=== PATIENT | female | born 1995 | race Hispanic/Latino ===

== ENCOUNTER 2018-05-13 12:31 | Inpatient (IN) | payer MEDICAID, OTHER ==
[2018-05-13] MEDS ORDERED: MEPERIDINE HCL 25 MG/0.5 ML IV PRN (14:27)
[2018-05-13] MEDS ORDERED: BUTORPHANOL 1 MG/ML INJ IV PRN (14:27)
[2018-05-13] MEDS ORDERED: METHYLERGONOVINE 0.2MG/ML AMP IM PRN (14:27)
[2018-05-13] MEDS ORDERED: PROMETHAZINE 25 MG/ML VIAL IM PRN (14:27)
[2018-05-13] MEDS ORDERED: MIDAZOLAM HCL 2 MG/2 ML INJ IV PRN (14:27)
[2018-05-13] MEDS ORDERED: Ringers Lactate 1,000 ML IV PRN (14:27)
[2018-05-13] MEDS ORDERED: CARBOPROST TROME 250 MCG/ML IM PRN (14:27)
[2018-05-13] MEDS ORDERED: CLINDAMYCIN IV SCH (15:00)
[2018-05-13] MEDS ORDERED: [UNRECOGNIZED DRUG - OTHER] IV SCH (15:00)
[2018-05-13] MEDS ORDERED: CLINDAMYCIN INJ 900 MG in NA CHLORIDE 0.9% 50 ML IV SCH (15:00)
[2018-05-13] MEDS ORDERED: Ringers Lactate 1,000 ML IV SCH (15:00)
[2018-05-13 15:23] LABS: RPR Titer ND
[2018-05-13] MEDS ORDERED: miSOPROStol 100 MCG TAB VAG SCH (15:25)
[2018-05-13 15:31] LABS: Urine Appearance TURBID; Urine Bilirubin NEGATIVE (NEG); Urine Blood 2+ (NEG); Urine Color YELLOW; Urine Glucose NEGATIVE (NEG); Urine Protein TRACE (NEG); Urine Urobilinogen 0.2 mg/dL (0.2-1.0)
[2018-05-13] MEDS ORDERED: miSOPROStol 100 MCG TAB ONE (15:31)
[2018-05-13 15:34] VITALS: BMI 31.1
[2018-05-13 15:36] LABS: Urine Microscopic Reflex ORDER UMIC
[2018-05-13 15:44] LABS: Urine Bacteria 20-50 /HPF (<20); Urine Culture Reflex Order NOT NEEDED
[2018-05-13 15:51] LABS: Absolute Lymphocytes (CBC) 1.6 K/uL (0.7-4.9); Absolute Monocytes 0.7 K/uL (0.1-1.3); Absolute Neutrophil 9.3 K/uL (1.8-8.0); Basophils % 0.4 % (0-1.3); Eosinophils % 0.3 % (0-4.4); Hematocrit 38.1 % (36.0-45.0); Lymphocytes % 13.3 % (15.3-44.8); MCH 30.3 pg (27.0-35.0); MCV 90.5 fL (80-100); MPV 13.1 fL (7.6-11.3); RBC Red Blood Cell Count 4.21 M/uL (3.86-4.86)
--- NOTE | 2018-05-13 20:06 | PREOPHP ---
Date of Admission: 05/13/2018 This is a 22-year-old primigravida, 39 weeks and 3-4 days, 1.5 cm vertex, -1 station, 50% effaced. F HTs normal, reactive. Rh positive, immune to Rubella. Negative beta strep screen. Full Cytotec doug k has been given and the patient is requesting Cytotec 50 mcg inserted intravaginally. The patient i s strep positive; therefore, we will begin penicillin prophylaxis either when rupture of membranes oc curs or the patient starts having regular firm contractions. Full labor talk today. GILDA/KAMLA Voice ID: [id number]
[2018-05-13] MEDS ORDERED: ZOLPIDEM TARTRATE 10 MG TABLET PO ONE (20:36)
[2018-05-13 22:43] LABS: RPR (Rapid Plasma Reagin) NON-REACT (NON-REACT)
[2018-05-14] MEDS ORDERED: OXYTOCIN/LR 20 UNIT/1,000 ML BAG IV SCH ×2 (04:00→12:00)
[2018-05-14] MEDS ORDERED: ROPIVACAINE HCL 100 ML IV PRN (05:49)
[2018-05-14] MEDS ORDERED: FENTANYL CITR 100 MCG/2 ML IV ONE (05:51)
[2018-05-14] MEDS ORDERED: ROPIVACAINE HCL 0.2% 20ML AMP IV SCH (06:00)
[2018-05-14] MEDS ORDERED: CARBOPROST TROME 250 MCG/ML IM PRN (06:59)
[2018-05-14] MEDS ORDERED: METHYLERGONOVINE 0.2MG/ML AMP IM PRN (06:59)
[2018-05-14] MEDS ORDERED: MEPERIDINE HCL 25 MG/0.5 ML IV PRN (06:59)
[2018-05-14] MEDS ORDERED: LIDOCAINE 2% 20 ML MDV IV ONE (07:02)
[2018-05-14] MEDS ORDERED: DOCUSATE NA/SENNA CONC 1 TAB PO PRN (11:02)
[2018-05-14] MEDS ORDERED: BISACODYL 10 MG RECTAL SUPP RECT PRN (11:02)
[2018-05-14] MEDS ORDERED: ACETAMINOPHEN 500 MG TAB PO PRN (11:02)
[2018-05-14] MEDS ORDERED: DIPHENHYDRAMINE 25 MG TAB/CAP PO PRN (11:02)
[2018-05-14] MEDS ORDERED: Oxycodone HCl/Acetaminophen 1 TAB TAB PO PRN ×2 (11:02)
--- NOTE | 2018-05-14 11:25 | PN ---
The patient is now 39 weeks 5 days. Cytotec last night. After second dose, patient ruptured membran es spontaneously, clear fluid. She has had 1 dose of Stadol. She is not on any Pitocin at this poin t. She has had 2 doses of Cleocin for beta strep prophylaxis. She is now 7 cm slightly and edematou s anterior lip, I think she is occiput posterior. She will do pelvic rocks. Scalp electrode applied . If no progress in the next hour or so, we will start light Pitocin. Full labor talk with the maren ent. GILDA/KAMLA Voice ID: [id number] Report ID: [id number]
--- NOTE | 2018-05-14 11:31 | PN ---
Patient has an epidural now, is much more comfortable. FHTs normal and reactive. She is now 8 cm. The edema noted on the anterior cervical lip is still there but less. I think the baby is still occi put posterior. We will start pelvic rocks here soon, and if no progress in the next 20 to 30 minutes , start light Pitocin. GILDA/KAMLA Voice ID: [id number] Report ID: [id number]
--- NOTE | 2018-05-14 11:40 | OP ---
Surgeon: Derrick Zarco MD A 22-year-old primigravida at 39 weeks 4 days, had Cytotec 50 mcg placed and then 6 hours later secon d one. Spontaneous rupture of membranes around midnight last night. Clear fluid. The patient went to a very active labor pattern. Received 1 mg of Stadol. When examined this morning was 7.5 to 8 cm , but edematous anterior cervical lip and straight occiput posterior. Epidural anesthesia was establ ished. The patient did pelvic rocks. Baby rotated into an anterior position. Second stage of 30-45 minutes. Spontaneous vaginal delivery of an estimated 7-pound plus female Apgars 9 and 9. Small fi rst-degree laceration on the right, labia minora and down to the introitus, all sutured with 2-0 fingerprinter shameka running locked stitch. A smaller first-degree laceration just inside the introitus on patient's left, 2-0 chromic at that point. Schultze delivery of placenta, which was inspected and noted to be intact and normal. A 350 cc estimated blood loss. The patient is Rh positive, immune to Rubella. P ositive beta strep screen. Received 2 doses of Cleocin during her labor. Final Diagnoses: Intrauterine gestation, 39 weeks 4 days, Cytotec for cervical ripening, labor induc tion, vaginal delivery at 39 weeks 5 days. Epidural anesthesia. Beta strep prophylaxis with Cleocin . GILDA/KAMLA Voice ID: [id number] Report ID: [id number]
--- NOTE | 2018-05-14 11:40 | PN ---
The patient is still 8 cm, occiput posterior. She is on 4 milliunits of Pitocin. We will continue t o stimulate contractions. She has absolutely no sensation, so we will cut the epidural from 12 to 10 , maintenance dose. Full discussion with the patient and family, encouraged once again to do pelvic rocks, which she has not been doing, full discussion. GILDA/KAMLA Voice ID: [id number] Report ID: [id number]
[2018-05-14] MEDS ORDERED: CARBOPROST TROME 250 MCG/ML IM ONE (12:44)
[2018-05-14] MEDS ORDERED: METHYLERGONOVINE 0.2 MG TAB PO PRN (12:58)
[2018-05-14] MEDS: METHYLERGONOVINE 0.2 MG TAB PO SCH ×2 (17:00→21:00)
[2018-05-14] MEDS ORDERED: METHYLERGONOVINE 0.2 MG TAB PO SCH (18:00)
[2018-05-14] MEDS: IBUPROFEN 200 MG TAB PO PRN (21:00)
[2018-05-15] MEDS: IBUPROFEN 200 MG TAB PO PRN (04:15)
[2018-05-15] MEDS: METHYLERGONOVINE 0.2 MG TAB PO SCH (04:15)
[2018-05-15] MEDS ORDERED: METHYLERGONOVINE 0.2 MG TAB PO ONE (04:21)
[2018-05-15 04:25] LABS: HBsAG Nonreactive (Nonreactive)
[2018-05-15 04:36] VITALS: BP 125/66; TEMP 97.6
--- NOTE | 2018-05-16 05:08 | DS ---
Date of Discharge: 05/15/2018 A 22-year-old, primigravida, 39 weeks 4 days, Cytotec for cervical ripening. After the second Cytote c, patient experienced spontaneous rupture of membranes, clear fluid. Went to an active labor patter n. Later in the labor, had light Pitocin augmentation. She subsequently delivered of an estimated 7 -pound plus female, Apgars 9 and 9 after second stage of approximately 30-45 minutes. Spontaneous Sc hultze delivery of the placenta, which was inspected and noted to be intact and normal. At that time , 350 cc blood loss. Epidural anesthesia was started at 8 cm. Gave good effect the remainder of lab or and delivery. The patient sustained two first-degree lacerations, one on the right side labia min ora, 2-0 chromic running interlocked stitches, approximately six, one on the left side at the introit us at the lower portion, four stitches of 2-0 chromic running locked. Cleocin prophylaxis as patien t was beta strep positive, two doses given. , patient experienced mild hypotonous, was giv en Methergine IM and then subsequently p.o. Methergine, lochia is now normal. She also could not voi d, has Meyer catheter inserted. 650 cc was obtained at that point. We will discontinue the Meyer th is morning. The patient has already been ambulating. She will be dismissed later on this afternoon. To report to my office in 6 weeks for followup, to report any temperature elevation of 100 degrees or greater, severe pain, heavy bleeding, or any other type of abnormalities. Dismissed with Tramadol for analgesia, although she knows this goes to the breast milk and may elect to take Motrin instead. She has already had her Tdap and flu shots. She has no post epidural problems. Final Diagnoses: Intrauterine gestation, 39 weeks 4 days, Cytotec for cervical ripening. Labor kenneth ction. Vaginal delivery. Epidural anesthesia. Penicillin prophylaxis. Mild uterine hypotonus. Urinary retention. NBC/MODL Voice ID: [id number] Report ID: [id number]
== END 2018-05-15 13:15 | disposition home or self-care (01) | DRG 807 ==
LOC: 2ND-WC 14:09
PROVIDERS: ADMIT Specialist; ATTEND Specialist
PROC: 10E0XZZ Delivery of Products of Conception, External Approach (ICD-10-PCS; principal; 2018-05-14)
PROC: 3E0P7VZ Introduction of Hormone into Female Reproductive, Via Natural or Artificial Opening (ICD-10-PCS; 2018-05-14)
PROC: 0HQ9XZZ Repair Perineum Skin, External Approach (ICD-10-PCS; 2018-05-14)
PROC: 0UQGXZZ Repair Vagina, External Approach (ICD-10-PCS; 2018-05-14)
DX: O70.0 First degree perineal laceration during delivery (principal); Z37.0 Single live birth; O99.824 Streptococcus B carrier state complicating childbirth; Z3A.39 39 weeks gestation of pregnancy; O62.1 Secondary uterine inertia; O99.89 Other specified diseases and conditions complicating pregnancy, childbirth and the puerperium; R33.9 Retention of urine, unspecified
CPT/HCPCS: 36415; 81003; 81015; 85025; 86592; 86901; 87340; J0595; J2210; J2550; J2590; J2795; J3010

== ENCOUNTER 2020-06-02 15:51 | Emergency (ER) | payer OTHER ==
--- OUTSIDE RECORDS SUMMARY | 2020-06-02 15:53 | XMS REPORT | Continuity of Care Document ---
:1995 Author Organization [facility] t Address [address] [place] [address] Care Team Providers Name Role Phone Tristin SUTHERLAND Attending Clinician 2, Lab Attending Clinician Unavailable Obed Acevedo MD Attending Clinician Doctor Unassigned, Name Attending Clinician Unavailable Jigar RAMOS Attending Clinician Eduar CRAWFORD Attending Clinician Problems This patient has no known problems. Allergies, Adverse Reactions, Alerts This patient has no known allergies or adverse reactions. Medications This patient has no known medications. Procedures This patient has no known procedures. Encounters Start End Encounter Admission Attending Care Care Encounter Source Date/Time Date/Time Type Type Clinicians Facility Department ID 2020-06-02 2020-06-02 [facility] [id number] 00:00:00 00:00:00 Joan Iniguez 350.1.13.10 [place] 4.2.7.2.686 Professfredi [phone] [address] 2020-06-02 2020-06-02 [place] [id number] 00:00:00 00:00:00 Joan Iniguez 350.1.13.10 [place] 4.2.7.2.686 Professio [phone] [address] 2020-06-01 2020-06-01 Case [id number] 00:00:00 00:00:00 Management Joan Iniguez 350.1.13.10 [place] 4.2.7.2.686 Professio [phone] [facility] [address] [facility] 2020-06-01 2020-06-01 Telephone Tristin, [facility] [id number] 00:00:00 00:00:00 Joandno Delgadoton 350.1.13.10 [place] 4.2.7.2.686 Professio [id number] [address] 2020-05-24 2020-05-24 Coal Weigher 2, Adc Lab [facility] [id number] 08:18:11 08:33:11 Visit Geetha 350.1.13.10 [place] 4.2.7.2.686 Professio [phone] [address] 2020-05-24 2020-05-24 Telephone Curtis Annetta [facility] [id number] 00:00:00 00:00:00 [place] 350.1.13.10 [place] 4.2.7.2.686 Professio [phone] [address] 2020-05-19 2020-05-19 Telephone Annetta Acevedo [facility] [id number] 00:00:00 00:00:00 Cam [place] 350.1.13.10 [place] 4.2.7.2.686 Professio [phone] [address] 2020-05-18 2020-05-18 Routine Tristin [facility] [id number] 08:51:53 09:34:45 Joan Iniguez 350.1.13.10 Visit [place] 4.2.7.2.686 Professio [id number] [address] 2020-05-18 2020-05-18 Letter Tristin [facility] [id number] 00:00:00 00:00:00 (Out) Joan Iniguez 350.1.13.10 [place] 4.2.7.2.686 Professio [id number] [address] 2020-05-17 2020-05-17 Telephone Tristin [facility] 1.2.840.114 [id number] 00:00:00 00:00:00 Joan Iniguez 350.1.13.10 [place] 4.2.7.2.686 Professio [phone] [address] 2020-05-10 2020-05-10 Coal Weigher 2, Adc Lab [facility] [id number] 09:18:13 09:33:13 Visit Geetha 350.1.13.10 [place] 4.2.7.2.686 Professio [phone] [address] 2020-05-10 2020-05-10 Routine Curtis Annetta [facility] [id number] 08:32:45 09:11:33 Obed Iniguez 350.1.13.10 Visit [place] 4.2.7.2.686 Professio [phone] [address] 2020-05-10 2020-05-10 Case Washingtonbarbi [facility] [id number] 00:00:00 00:00:00 Management Joan Iniguez 350.1.13.10 [place] 4.2.7.2.686 Professio [phone] [address] 2020-05-10 2020-05-10 Orders Doctor CELY 1.2.840.114 [id number] 00:00:00 00:00:00 Only Unassigned, [place] 350.1.13.10 [place] [facility] 4.2.7.2.686 [id number] 009 2020-05-07 2020-05-07 Emergency [facility] [id number] 16:31:00 18:34:00 Digna Iniguez 350.1.13.10 [place] 4.2.7.2.686 [place] [id number] [id number] 2020-05-07 2020-05-07 Telephone Annetta Acevedo [facility] 1.2.840.114 [id number] 00:00:00 00:00:00 Obed Iniguez 350.1.13.10 [place] 4.2.7.2.686 Professio [phone] [address] 2020-05-07 2020-05-07 Orders Doctor CELY 1.2.840.114 [id number] 00:00:00 00:00:00 Only Unassigned, [place] 350.1.13.10 [place] [facility] 4.2.7.2.686 [id number] [id number] 2020-05-05 2020-05-05 Telephone Annetta Acevedo [facility] 1.2.840.114 [id number] 00:00:00 00:00:00 [place] 350.1.13.10 [place] 4.2.7.2.686 Professio [id number] [address] 2020-05-03 2020-05-03 Case Vaibhavrajinder [facility] [id number] 00:00:00 00:00:00 Management Joan Geetha 350.1.13.10 [place] 4.2.7.2.686 Professio [phone] [address] 2020-04-27 2020-04-27 Routine Annetta Acevedo [facility] [id number] 10:19:04 11:00:59 Obed Iniguez 350.1.13.10 Visit [place] 4.2.7.2.686 Professio [phone] [address] 2020-04-13 2020-04-13 Telephone Annetta Acevedo [facility] 1.2.840.114 [id number] 00:00:00 00:00:00 [place] 350.1.13.10 [place] 4.2.7.2.686 Professio [id number] [address] 2020-04-05 2020-04-05 Routine Annetta Acevedo [facility] [id number] 13:01:59 14:19:54 [place] 350.1.13.10 Visit [place] 4.2.7.2.686 Professio [phone] [address] 2020-04-05 2020-04-05 Emergency [facility] [id number] 09:26:00 12:14:00 Giorgio Iniguez 350.1.13.10 [place] 4.2.7.2.686 [place] [id number] 084 2020-04-05 2020-04-05 Orders Doctor CELY 1.2.840.114 [id number] 00:00:00 00:00:00 Only Unassigned, [place] 350.1.13.10 [place] [facility] 4.2.7.2.686 [id number] 009 2020-03-31 2020-03-31 Telephone Annetta Acevedo 1.2.840.114 [id number] 00:00:00 00:00:00 [place] 350.1.13.10 [place] 4.2.7.2.686 Professio [id number] [address] 2020-03-31 2020-03-31 Orders Doctor CELY 1.2.840.114 [id number] 00:00:00 00:00:00 Only Unassigned, [place] 350.1.13.10 [place] [facility] 4.2.7.2.686 [id number] [id number] 2020-03-26 2020-03-26 Telephone Annteta Acevedo 1.2.840.114 [id number] 00:00:00 00:00:00 [place] 350.1.13.10 [place] 4.2.7.2.686 Professio [phone] [address] 2020-03-23 2020-03-23 Initial Annetta Acevedo [facility] [id number] 07:59:09 08:51:52 [place] 350.1.13.10 Visit [place] 4.2.7.2.686 Professio [phone] [address] 2020-03-23 2020-03-23 Orders Doctor CELY [id number] [id number] 00:00:00 00:00:00 Only Unassigned, [place] 350.1.13.10 [place] [facility] 4.2.7.2.686 [id number] [id number] Results This patient has no known results.
--- OUTSIDE RECORDS SUMMARY | 2020-06-02 15:54 | XMS REPORT | Summary of Care ---
:1995 Author Organization [facility] Address [address] [place] [address] Care Team Providers Name Role Phone MD Bello Primary Care Provider Reason for Visit Reason Comments Rx Concern/Question Encounter Details Date Type Department Care Team Description 03/31/[address] [facility] Women's AcevedoAnnetta MD Rx Concern/Question Healthcare- [address] Mcconnell [facility] [address] [place] [address] [place] [address] [phone] Allergies Active Allergy Reactions Severity Noted Date Comments Penicillins Rash 05/07/2015 documented as of this encounter (statuses as of 04/02/2020) Medications Medication Sig Dispensed Refills Start Date End Date Status proMETHazine 25 mg Take 1 tablet by 12 tablet 0 03/16/2018 Active tablet mouth every 6 (six) hours as needed for Nausea and Vomiting (N/V). azithromycin (ZITHROMAX Take 1 tablet by 1 tablet 0 9 Active Z-RUT) 250 mg mouth tabletIndications: SEE-INSTRUCTIONS Streptococcal sore . Take 500 mg throat day 1, then 250 mg days 2 to 5. cetirizine (ZYRTEC) 10 Take 1 tablet by 10 tablet 0 05/26/2019 Active mg tabletIndications: mouth daily. Allergic rhinitis, unspecified seasonality, unspecified trigger fluticasone propionate Use 1 [place] in 16 g 0 05/26/2019 Active (FLONASE ALLERGY each nostril RELIEF) 50 daily. mcg/actuation nasal sprayIndications: Allergic rhinitis, unspecified seasonality, unspecified trigger 25/iron Take by mouth. 0 Active fum/folic/dha (-1 ORAL) doxylamine-pyridoxine, Take 1 tablet by 120 tablet 3 0 Active vit B6, (DICLEGIS) mouth 10-10 mg per SEE-INSTRUCTIONS tabletIndications: . Positive test, Vomiting or nausea of ketoconazole 2 % Apply to 15 g 1 03/23/2020 Ac tive creamIndications: area(s) daily. Candidiasis of skin and nails triamcinolone acetonide Apply to 15 g 1 03/23/2020 Active 0.1 % creamIndications: area(s) 2 (two) Candidiasis of skin and times daily. nails metoclopramide HCl 10 Take 1 tablet by 30 tablet 1 04/02/2020 Active mg tablet mouth every 6 (six) hours as needed for Nausea and Vomiting (N/V) (alternate with unisom/vitamin B6). documented as of this encounter (statuses as of 04/02/2020) Active Problems Problem Noted Date Obesity (BMI 30-39.9) 03/23/2020 Allergic rhinitis, unspecified seasonality, unspecifie d trigger 05/26/2019 Need for influenza vaccination 05/26/2019 Estimated Date of Delivery Comments Yes 11/19/2020 documented as of this encounter (statuses as of 04/02/2020) Resolved Problems Problem Noted Date Resolved Date Visit for annual health examination 05/26/201903/09 Diarrhea, unspecified type 05/26/2019 03/23/2020 Non-recurrent acute suppurative otitis media of right ear 03/23/2020 without spontaneous rupture of tympanic membrane Acute otitis externa of right ear, unspecified type 05/08/20 19 03/23/2020 Right ear pain 05/08/2019 03/23/2020 Left knee pain 05/07/2015 02/15/2016 documented as of this encounter (statuses as of 04/02/2020) Immunizations Name Administration Dates Next Due DTAP 10/07/2001, 09/20/1998, 03/24/1998, 01/21/1998, 1995 H1n1 Vaccine 06/22/2009 HEPATITIS A 02/07/2008, 05/25/2006, 02/06/2005 HIB 4 Dose Schedule 09/20/1998, 03/24/1998, 01/21/1998, 1997 HPV 02/15/2016 HPV9 02/15/2016 (Deferred: Vaccine Unavailable) Hep B, Adol or Pedi Dosage 06/22/1998, 1997, 8 Influenza Virus Vaccine 10/07/2001 Influenza Virus Vaccine Quad .5 mL IM 05/26/2019 6+ MO MMR 10/07/2001, 09/20/1998 Meningococcal B, OMV 11/30/2015 Meningococcal Vaccine 11/30/2015, 12/01/2008 TDAP (ADACEL) VACCINE 02/22/2011 Varicella (varivax)(chicken pox) 02/22/2011, 09/20/1998 documented as of this encounter Social History Tobacco Use Types Packs/Day Years Used Date Never Smoker Smokeless Tobacco: Never Used Alcohol Use Drinks/Week oz/Week Comments No Estimated Date of Delivery Comments Yes 11/19/2020 Sex Assigned at Date Recorded Not on file COVID-19 Exposure Response Date Recorded In the last month, have you been in contact with No / Unsure 03/23/2020 7:54 AM CDT someone who was confirmed or suspected to have Coronavirus / COVID-19? documented as of this encounter Last Filed Vital Signs Not on filedocumented in this encounter Miscellaneous Notes Telephone Encounter - Ce Soto RN - 04/02/2020 1:42 PM CDTRN called patient, name and verified. RN notified patient of new medication for nausea and that it needs to be alternated with vitamin B6 and unisom. RN advised. patient to call back with any questions or concerns. Patient verbalized understanding and agrees to plan of care. Ce Soto RN 04/02/2020 1:44 PM Telephone Encounter - Ce Soto RN - 04/02/2020 8:[address] Acevedo, order entered for Reglan 10mg, 1 tablet by mouth [id number] PRN Nausea, q30, refills1. This is to be alternated with unisom/vitamin B6. RN called patient to notify of medication change and instructions, no answer, left message for patient to return call so that rx can be processed. Ce Soto RN 04/02/2020 8:06 AM Telephone Encounter - Gisele Casiano - 03/31/2020 1:30 PM CDTReceived fax, Clinical Services Team denied medication Doxylamine, given to nurse. documented in this encounter Plan of Treatment Date Type Specialty Care Team Description 04/06/2020 Routine Obstetrics & Acevedo, Annetta Clay MD Visit Gynecology [address] [place] [address] DR. Mejia [place], [place] [address] [phone] Health Maintenance Due Date Last Done Comments MENINGOCOCCAL B VACCINES (2 12/28/2015 11/30/2015 of 2 - Risk Bexsero 2-dose series) HPV VACCINES (2 - 3-dose 03/14/2016 02/15/2016 series) INFLUENZA VACCINE (#1) 2020 05/26/2019, 10/07/2001 Depression Screening 05/26/2020 05/26/2019 DTaP,Tdap,and Td Vaccines (7 02/22/2021 02/22/2011, 002, - Td) 09/20/1998, Additional history exists CHLAMYDIA SCREENING 03/23/2021 03/23/2020, 06/07/2018 PAP SMEAR 03/23/2023 03/23/2020 VARICELLA VACCINES Completed 02/22/2011, 09/20/1998 MENINGOCOCCAL VACCINE Aged Out 11/30/2015, 12/01/2008 No longer eligible based on patient 's age to complete this topic PNEUMOCOCCAL 0-64 YEARS Aged Out No longe r eligible COMBINED SERIES based on patient 's age to complete this topic documented as of this encounter Results Not on filedocumented in this encounter Insurance Payer Benefit Plan Subscriber ID Effective Dates Phone Address Type / Group [employer] [facility] [id number] 2019-Chiqui [phone] [address] PPO/POS [place] - OUT OF t [id number] [place] [address] documented as of this encounter
--- OUTSIDE RECORDS SUMMARY | 2020-06-02 15:54 | XMS REPORT | Summary of Care ---
:1995 Author Organization [facility] Address [address] [place] [id number] Care Team Providers Name Role Phone MD Bello Primary Care Provider Reason for Visit Reason Comments New OB Visit Encounter Details Date Type Department Care Team Description 03/23/2020 Initial [facility] AcevedoAnnetta am, MD Candidiasis of skin and nails (Primary D x); Visit Healthcare- [address] [place] [address] men ses; [place] Positive test; [address] [place] [address] [address], [address] [place] [id number] [phone] Allergies Active Allergy Reactions Severity Noted Date Comments Penicillins Rash 05/07/2015 documented as of this encounter (statuses as of 03/23/2020) Medications Medication Sig Dispensed Refills Start Date End Date Status proMETHazine 25 mg Take 1 tablet by 12 tablet 0 03/16/2018 Active tablet mouth every 6 (six) hours as needed for Nausea and Vomiting (N/V). azithromycin Take 1 tablet by 1 tablet 0 10/18/2018 Active (ZITHROMAX Z-RUT) 250 mouth mg tabletIndications: SEE-INSTRUCTIONS. Streptococcal sore Take 500 mg day throat 1, then 250 mg days 2 to 5. cetirizine (ZYRTEC) 10 Take 1 tablet by 10 tablet 0 05/26/2019 Active mg tabletIndications: mouth daily. Allergic rhinitis, unspecified seasonality, unspecified trigger fluticasone propionate Use 1 Hamer in 16 g 0 05/26/2019 Active (FLONASE ALLERGY each nostril RELIEF) 50 daily. mcg/actuation nasal sprayIndications: Allergic rhinitis, unspecified seasonality, unspecified trigger 25/iron Take by mouth. 0 Active fum/folic/dha (-1 ORAL) doxylamine-pyridoxine, Take 1 tablet by 120 tablet 3 0 Active vit B6, (DICLEGIS) mouth 10-10 mg per SEE-INSTRUCTIONS. tabletIndications: Positive test, Vomiting or nausea of ketoconazole 2 % Apply to area(s) 15 g 1 03/23/2020 Active creamIndications: daily. Candidiasis of skin and nails triamcinolone Apply to area(s) 15 g 1 03/23/2020 Active acetonide 0.1 % 2 (two) times creamIndications: daily. Candidiasis of skin and nails documented as of this encounter (statuses as of 03/23/2020) Active Problems Problem Noted Date Obesity (BMI 30-39.9) 03/23/2020 Allergic rhinitis, unspecified seasonality, unspecifie d trigger 05/26/2019 Need for influenza vaccination 05/26/2019 Estimated Date of Delivery Comments Yes 11/19/2020 documented as of this encounter (statuses as of 03/23/2020) Resolved Problems Problem Noted Date Resolved Date Visit for annual health examination 05/26/201903/09 Diarrhea, unspecified type 05/26/2019 03/23/2020 Non-recurrent acute suppurative otitis media of right ear 03/23/2020 without spontaneous rupture of tympanic membrane Acute otitis externa of right ear, unspecified type 05/08/20 19 03/23/2020 Right ear pain 05/08/2019 03/23/2020 Left knee pain 05/07/2015 02/15/2016 documented as of this encounter (statuses as of 03/23/2020) Immunizations Name Administration Dates Next Due DTAP [...] of this encounter Last Filed Vital Signs Vital Sign Reading Time Taken Comments Blood Pressure 126/87 03/23/2020 8:27 AM CDT Pulse 94 03/23/2020 8:27 AM CDT Temperature 37.1 C (98.7 F) 03/23/2020 8:27 AM CDT Respiratory Rate 18 03/23/2020 8:27 AM CDT Oxygen Saturation - - Inhaled Oxygen Concentration - - Weight 92.4 kg (203 lb 12.8 oz) 03/23/2020 8:27 AM CDT Height 165.1 cm (5' 5") 03/23/2020 8:27 AM CDT Body Mass Index 33.91 03/23/2020 8:27 AM CDT documented in this encounter Patient Instructions Patient InstructionsCherelle Rutherford MA - 03/23/2020 8:00 AM CDT Patient Education What Is Care? Before becoming , you may have adopted good health habits to prepare for your baby. But if you didnt, start today. One of the first steps is learning how to take care of yourself. See your healthcare provider as soon as you think you may be . Then, continue care throughout your . care helps you have a healthy baby During care: Your healthcare provider evaluates the health of your . Your healthcare provider will calculate a due date that gives an estimate of the delivery of your baby. Many women give between 38 and 41 weeks of . Your due date is determined by counting 40 weeks from the first day of your last menstrual period. The progress of your is checked. This includes your babys growth, heart rate, changes in your weight and blood pressure,and your overall health and comfort. Your healthcare provider may find new concerns and manage existing ones before problems happen. Your healthcare provider will check lab work through blood and urine. Your healthcare provider will discuss normal changes that happen during , changes that may not be normal, and appropriate lifestyle changes. Your healthcare provider will answer your questions and help you prepare for labor and delivery of your baby. You are part of a team When youre , youre part of a team that includes you, your baby, and your healthcare provider. Your team also may include a partner or a main support person. He or she could be a loved one, like a spouse, a family member, or a friend. As you work toward giving your baby a healthy start, rely on your team members for support. Its not too late to start good habits What matters most is protecting your baby from this moment on. If you smoke, drink alcohol, or use drugs, now is the time to stop. If you need help, talk with your healthcare provider: Smoking increases the risk of losing your baby or having a vkd-ktkoa-dlkukw baby. If you smoke, quit now. Alcohol and drugs have been linked with miscarriage, defects, intellectual disability, and low weight. Avoid alcohol and drugs. Eat a healthy diet. This helps keep you and your baby strong and healthy. Follow your healthcare provider's instructions for nutrition. Also stay within the guidelines you are given for healthy weight gain. Take 400microgramsto 800 micrograms (400 mcg to 800 mcg or 0.4 mg to 0.8 mg) of folic acid every day for at least 3 months before getting to lower your risk of some defects of thebrain and spine. You can get folic acid from some foods. It is hard to get all of the folic acid youwill need from foods alone. Talk with your healthcare provider about taking a folic acid supplement. Regular exercise will help you stay fit and feel good during . It can also help preventor minimize back pain. Be sure to talk with your healthcare provider about how to exercise safely during . If you have a medical condition, be sure it is under control. Some conditions include asthma, diabetes, depression, high blood pressure, obesity, thyroid disease, or epilepsy. Be sure your vaccines are up to date. [employer] last reviewed this educational content on 04/08/2017 The [employer]. [address] [place] [address]. All rights reserved. This information is not intended as a substitute for professional medical care. Always follow your healthcare professional's instructions. Patient Education : Your First Trimester Changes The first trimester is a time of rapid development for your baby. Because your baby is growing so quickly, it is important that you start a healthy lifestyle right away. By the end of the first trimester, your baby has formed all of its major body organs and weighs just over an ounce. Actual size of baby is 1/4" Month 1 (weeks 1 to 4) The placenta (the organ that nourishes your baby) begins to form. Thebrain, spinal cord,heart,gastrointestinal tract,and lungs begin to develop. Your baby is about 1/4-inch long by the end of the first month. Actual size of baby is 1" Month 2 (weeks 5 to 8) All of your babys major body organs form. The face, fingers, toes, ears, and eyes appear. By the end of the month, your baby is about 1-inch long. Actual size of baby is 3" Month 3 (weeks 9 to 12) Your baby can open and close its fists and mouth. The sexual organs begin to form. As the first trimester ends, your baby is about 3-inches long. Postling last reviewed this educational content on 04/08/2017 The [employer] [address] [place] [address]. All rights reserved. This information is not intended as a substitute for professional medical care. Always follow your healthcare professional's instructions. Patient Education Adapting to : First Trimester As your body adjusts, you may have to change or limit your daily activities. Youll need more rest. You may also need to use the energy you have more wisely. Your changing body Almost every part of your body is affected as you adapt to . The uterus and cervix will begin to soften right away. You may not look very during the first 3 months. But you are likelyto have some common signs of early : Nausea Fatigue Frequent urination Mood swings Bloating of the belly Constipation Heartburn Missed or light periods (first trimester bleeding) Nipple or breast tenderness and breast swelling Its not too late to start good habits What matters most is protecting your baby from this moment on. If you smoke, drink alcohol, or use drugs, now is the time to stop. If you need help, talk with your healthcare provider: Smoking increases the risk of stillbirthor having a dro-qbylj-exypbg baby. If you smoke, quit now. Alcohol and drugs have been linked with miscarriage, defects, intellectual disability, and low weight. Do not drink alcohol or take drugs. Tips to relieve nausea Although nausea can happen at any time of the day, it may be worse in the morning. To help prevent nausea: Eat small, light meals at frequent intervals. Drink fluids often. Get up slowly. Eat a few unsalted crackers before you get out of bed. Avoid smells that bother you. Avoid spicy and fatty foods. Eat an ice popin your favorite flavor. Get plenty of rest. Ask your healthcare provider about taking ira or vitamin B6 for nausea and vomiting. Talk with your healthcare provider if you take vitamins that upset your stomach. Work concerns The end of the first trimester is a good time to discuss working during with your employer. Follow your healthcare providers advice if your job needs you to stand for a long time, work with hazardous tools, or even sit at a desk all day. Your workspace, workload, or scheduled hours may need to be adjusted. Perhaps you can change body postures more often or take an extra break. Advice for travel Talk to your healthcare provider first, but the second trimester may be the best time for any travel. You may be advised to avoid certain trips while youre . Food and water can be concerns in developing countries. Travel by car is a good choice, as you can stop, get out, and stretch. Bring snacks and water along. Fasten the lap belt below your belly, low over your hips. Also be sure to wear the shoulder harness. Intimacy Unless your healthcare provider tells you to, there is no reason to stop having sex while youre . You or your partner may notice changes in desire. Desire may be less in the first trimester,due to nausea and fatigue. In the second trimester, sex may be very enjoyable. The third trimester can be a challenge comfort-vallejo. Try different positions and see whats best for you both. Postling last reviewed this educational content on 04/08/201719992379-7750 The [employer]. [address] [place] [address]. All rights reserved. This information is not intended as a substitute for professional medical care. Always follow your healthcare professional's instructions. documented in this encounter Progress Notes Annetta Acevedo MD - 03/23/2020 8:00 AM CDT Chief complaint: Chief Complaint Patient presents with New OB Visit HPI Fernanda Davis is a 24 year old, , /White female @5w4d by Patient's last menstrual period was 02/13/2020 (exact date). Denies cramping or vaginal bleeding. + nausea. Histories OB History Para Term AB Living 2 1 1 1 SAB TAB Ectopic Multiple Live Births 1 # Outcome Date GA Lbr [place]/2nd Weight Sex Delivery Anes PTL Lv 2 Current 1 Term 05/14/18 39w4d 7 lb 4 oz (3.289 kg) F NORMAL SPONT N SYDNI Past Medical History: Diagnosis Date Seasonal allergies Family History Problem Relation Age of Onset Stroke Paternal Grandfather 42 No Significant Medical Problems Mother Diabetes Father High cholesterol Father Hypertension Father No Significant Medical Problems Maternal Grandmother No Significant Medical Problems Maternal Grandfather Diabetes Paternal Grandmother Allergies NoFHx Asthma NoFHx Heart NoFHx Family Status Relation Name Status PGFa Mo Alive Fa Alive MGMo (Not Specified) MGFa (Not Specified) PGMo (Not Specified) NoFHx (Not Specified) Past Surgical History: Procedure Laterality Date JOINT SURGERY Lt ACL & Menis. repair. 08/2014 TOOTH EXTRACTION Social History Socioeconomic History Marital status: Single Spouse name: Not on file Number of children: Not on file Years of education: Not on file Highest education level: Not on file Occupational History Not on file Social Needs Financial resource strain: Not on file Food insecurity Worry: Not on file Inability: Not on file Transportation needs Medical: Not on file Non-medical: Not on file Tobacco Use Smoking status: Never Smoker Smokeless tobacco: Never Used Substance and Sexual Activity Alcohol use: No Drug use: No Sexual activity: Yes Partners: Male control/protection: None Lifestyle Physical activity Days per week: Not on file Minutes per session: Not on file Stress: Not on file Relationships Social connections Talks on phone: Not on file Gets together: Not on file Attends gnosticist service: Not on file Active member of club or organization: Not on file Attends meetings of clubs or organizations: Not on file Relationship status: Not on file Intimate partner violence Fear of current or ex partner: Not on file Emotionally abused: Not on file Physically abused: Not on file Forced sexual activity: Not on file Other Topics Concern Not on file Social History Narrative Lives with and daughter Denies any physical or sexual abuse Feels safe at home No pets No smoke exposure Social History Substance and Sexual Activity Sexual Activity Yes Partners: Male control/protection: None Genetic Screen Autism / Mental Retardation: No Jovany Disease: No Congenital Heart Defect: No Cystic Fibrosis: No Down Syndrome: No Familial Dysautonomia: No Hemophilia or other Blood Disorders: No Providence Chorea: No Maternal Metabolic Disorder--specify (eg. Type 1 Diabetes, PKU): No Muscular Dystrophy: No Neural Tube Defect: No Recurrent Loss or a Stillbirth: No Sickle Cell Disease or Trait: No Smith Sachs: No Teratological Substances (specify type & strength/dose) since LMP: No Thalassemia: No Other Inherited Genetic or Chromosomal Disorder (specify): No Labs I have reviewed the patient's labs. Radiology Reviewed Allergies Fernanda is allergic to pcn [penicillins]. Medications Fernanda has a current medication list which includes the following prescription(s): 25/iron fum/folic/dha, cetirizine, fluticasone propionate, azithromycin, and promethazine. Review of Systems Constitutional: Negative for activity change, chills, fatigue and fever. HENT: Negative for congestion, ear discharge, rhinorrhea, sinus pressure, sneezing and sore throat. Respiratory: Negative for cough, chest tightness, shortness of breath and wheezing. Breasts: Negative for discharge, mass, pain and unequal size. Cardiovascular: Negative for chest pain, palpitations and leg swelling. Gastrointestinal: Positive for nausea. Negative for abdominal distention, abdominal pain, anal bleeding, blood in stool, constipation, diarrhea and vomiting. Genitourinary: Negative for bladder incontinence, dysuria, urgency, frequency, vaginal bleeding and vaginal discharge. Musculoskeletal: Negative for back pain, gait problem and myalgias. Skin: Negative for rash and wound. Neurological: Negative for syncope, light-headedness and headaches. Psychiatric/Behavioral: Negative for dysphoric mood, self-injury and suicidal ideas. Hematological: Negative for cold intolerance and heat intolerance. Does not bruise/bleed easily. Endocrine: Negative for cold intolerance and heat intolerance. BP 126/87 (BP Location: Left arm, Patient Position: Sitting, BP CUFF SIZE: Adult Large) | Pulse 94| Temp 37.1 C (98.7 F) (Oral) | Resp 18 | Ht 5' 5" (1.651 m) | Wt 203 lb 12.8 oz (92.4 kg) |LMP 02/13/2020 (Exact Date) | BMI 33.91 kg/m Pregravid BMI: Could not be calculated Physical Exam Vitals reviewed. Constitutional: She is oriented to person, place, and time. Her body habitus is obese. Neck: No mass. No thyromegaly palpated. Cardiovascular: Regular rate and rhythm. Pulmonary/Chest: Breath sounds clear to auscultation. Normal inspiratory effort. Abdominal: Abdomen is soft. No tenderness present. No hernia palpated or inspected. Neuro/Psychiatric: She has a normal mood and affect. She is oriented to person, place, and time. Skin: Rash (inferior aspect of the breasts) present. Lymphadenopathy: No axillary adenopathy present. No inguinal adenopathy present. Breast: Right breast exhibits no mass, no nipple discharge and no tenderness. Left breast exhibits no mass, no nipple discharge and no tenderness. Breasts are symmetrical. External genitalia: Normal external genitalia appropriate for age. Normal hair distribution. No labial lesion. Urethral meatus: Normal urethral meatus Urethra: Normal urethra. Bladder: Normal bladder Vagina:Normal vagina. Cervix: Normal cervix. No lesion. No tenderness and no discharge present. Uterus: Uterus is normal size and non-tender. Adnexa: Right adnexa without tenderness or mass. Left adnexa without tenderness or mass. Anus/perineum: Normal perineum and normal anus. Assessment/Plan See OB Summary Note Return to clinic in 4 weeks. Discussed treatment options. Reviewed patient instructions and provided printed copy. Activity restrictions: As tolerated This visit did not involve counseling and coordination that comprised more than 50% of the visit time. I personally examined the patient and have verified the medical student documentation and/or findings, including the history, physical exam, and medical decision making. Additionally, I have personallyperformed or re-performed the physical exam and medical decision making activities of this patient'sevaluation and management service. Annetta Acevedo MD 03/23/2020 9:21 AM documented in this encounter Miscellaneous Notes OB Summary Note - Annetta Acevedo MD - 03/23/2020 8:00 AM CDTAge: 24 year old GA: 5w4d by Patient's last menstrual period was 02/13/2020 (exact date). Nausea without vomiting - Diclegis ordered - Avoid triggers Yeast infection - of the skin underneath the breasts - ketoconazole:triamcinolone cream BID until resolved Discussed do's and don'ts of , safe foods, safe medications. Reviewed Zika virus precautions. Encouraged to call if have any additional questions or concerns. Discussed about COVID-19/flu precautions. Social distancing, frequent hand washings, wearing face mask, signs/symptoms for testing and to follow CDC recommendations discussed. RTC in 2 wks for USG documented in this encounter Plan of Treatment Date Type Specialty Care Team Description 04/06/2020 Routine Obstetrics & Annetta Acevedo MD Visit Gynecology [address] [place] [address] [address]. [address] [place] [phone] Name Type Priority Associated Diagnoses Order S chedule GC & CHLAMYDIA AMPLIFIED LAB Routine Missed menses Or dered: 03/23/2020 ASSAY TRICHOMONAS AMPLIFIED LAB Routine Missed menses Order ed: 03/23/2020 ASSAY ADC / LCC - DRUG SCREEN LAB Routine Missed menses Ord ered: 03/23/2020 TRIAGE ADC OR DURAN ONLY - RPR LAB Routine Missed menses Expected: 03/23/2020, Positive test Expi res: 06/22/2020 GLUCOSE 1 HOUR POST LAB Routine Missed mense s Expected: 03/23/2020, PRANDIAL Positive test Expi res: 03/23/2021 CBC WITH DIFF LAB Routine Missed menses Expected: 03/23/2020, Positive test Expi res: 06/22/2020 HCV ANTIBODY LAB Routine Missed menses Expected: 03/23/2020, Positive test Expi res: 06/22/2020 HEPATITIS B SURFACE LAB Routine Missed mense s Expected: 03/23/2020, ANTIGEN Positive test Expi res: 06/22/2020 HIV 1/2 AG-AB WITH REFLEX LAB Routine Missed menses Expected: 03/23/2020, Positive test Expi res: 06/22/2020 WORKUP, BLOOD LAB Routine Missed me nses Expected: 03/23/2020, BANK Positive test Expi res: 06/22/2020 RUBELLA SCREEN IGG LAB Routine Missed menses Expected: 03/23/2020, Positive test Expi res: 06/22/2020 URINE CULTURE LAB Routine Missed menses Expected: 03/23/2020, Positive test Expi res: 06/22/2020 VZV ANTIBODY SCREEN LAB Routine Missed mense s Expected: 03/23/2020, Positive test Expi res: 06/22/2020 PAP Smear-Liquid Based LAB Routine Missed me nses Ordered: 03/23/2020 Positive test Health Maintenance Due Date Last Done Comments MENINGOCOCCAL B VACCINES (2 12/28/2015 11/30/2015 of 2 - Risk Bexsero 2-dose series) HPV VACCINES (2 - 3-dose 03/14/2016 02/15/2016 series) CHLAMYDIA SCREENING 06/07/2019 06/07/2018 INFLUENZA VACCINE (#1) 2020 05/26/2019, 10/07/2001 Depression Screening 05/26/2020 05/26/2019 DTaP,Tdap,and Td Vaccines 02/22/2021 02/22/2011, 10/07/2001 , (7 - Td) 09/20/1998, Additional history exists PAP SMEAR 06/07/2023 Postponed from 09/23/2018 ([place]) VARICELLA VACCINES Completed 02/22/2011, 09/20/1998 MENINGOCOCCAL VACCINE Aged Out 11/30/2015, 12/01/2008 No longer eligible based on patient 's age to complete this topic PNEUMOCOCCAL 0-64 YEARS Aged Out No longe r eligible COMBINED SERIES based on patient 's age to complete this topic documented as of this encounter Procedures Procedure Name Priority Date/Time Associated Comments Diagnosis POCT URINALYSIS W/O Routine 03/23/2020 8:32 AM Missed menses Results for this SPECIFIC GRAVITY CDT procedure a re in the results section. POCT TEST Routine 03/23/2020 8:32 AM Missed menses Results for this CDT procedure are i n the results section. documented in this encounter Results POCT TEST (03/23/2020 8:32 AM CDT) Pathologist Sig nature POCT PREG Positive On board controls acceptable Yes with C Line POCT PREG LOT # POCT PREG TEST DATE Specimen Urine - URINE, CLEAN CATCH POCT URINALYSIS W/O SPECIFIC GRAVITY (03/23/2020 8:32 AM CDT) Pathologist Sig nature POCT PH U n/a 5 - 8 mg/dl POCT U LEUK EST n/a Negative - Negative POCT U NIT n/a Negative - Negative POCT U PROT trace Negative - Negative POCT U GLU neg Negative - Negative POCT U KETONE n/a Negative - Negative POCT U BLD n/a Negative - Negative Specimen Urine - URINE, CLEAN CATCH documented in this encounter Visit Diagnoses Diagnosis Candidiasis of skin and nails - Primary Missed menses Absence of menstruation Positive test examination or test, positive result Vomiting or nausea of Unspecified vomiting of , unspe cified as to episode of care documented in this encounter Insurance Payer Benefit Plan Subscriber ID Effective Dates Phone Address Type / Group [facility] [id number] 2019-Chiqui [phone] [address] PPO/POS [place] - OUT OF t [id number] [place] [address] documented as of this encounter
--- OUTSIDE RECORDS SUMMARY | 2020-06-02 15:54 | XMS REPORT | Summary of Care ---
:1995 Author Organization [facility] - Health Address [address] [place] [address] Care Team Providers Name Role Phone MD Bello Primary Care Provider Encounter Details Date Type Department Care Team Description 04/05/2020 Orders Only [facility] Doctor Unassigned, No [address] [facility] [place] [address] [address] [place] [id number] Allergies Active Allergy Reactions Severity Noted Date Comments Penicillins Rash 05/07/2015 documented as of this encounter (statuses as of 04/05/2020) Medications Medication Sig Dispensed Refills Start Date [...] seasonality, unspecified trigger fluticasone propionate Use 1 [place] in 16 g 0 05/26/2019 Active (FLONASE [...] as of this encounter (statuses as of 04/05/2020) Active Problems Problem Noted Date Obesity (BMI 30-39.9) 03/23/2020 Allergic rhinitis, unspecified seasonality, unspecifie d trigger 05/26/2019 Need for influenza vaccination 05/26/2019 Estimated Date of Delivery Comments Yes 11/19/2020 documented as of this encounter (statuses as of 04/05/2020) Resolved Problems Problem Noted Date Resolved Date Visit for annual health examination 05/26/201903/09 Diarrhea, unspecified type 05/26/2019 03/23/2020 Non-recurrent acute suppurative otitis media of right ear 03/23/2020 without spontaneous rupture of tympanic membrane Acute otitis externa of right ear, unspecified type 05/08/20 19 03/23/2020 Right ear pain 05/08/2019 03/23/2020 Left knee pain 05/07/2015 02/15/2016 documented as of this encounter (statuses as of 04/05/2020) Immunizations Name Administration Dates Next Due DTAP [...] Signs Not on filedocumented in this encounter Plan of Treatment Date Type Specialty Care Team Description 04/05/2020 Routine Obstetrics & Acevedo, Annetta Clay MD Visit Gynecology [address] [place] [address] DR. Mej[place] [address] [phone] Health Maintenance Due Date Last Done Comments [...] encounter Procedures Procedure Name Priority Date/Time Associated Diagnosis Comme nts CONSENT/REFUSAL FOR Routine 04/05/2020 9:20 AM CDT DIAGNOSIS AND TREATMENT documented in this encounter Results Not on filedocumented in this encounter Insurance Payer Benefit Plan Subscriber ID Effective Dates Phone Address Type / Group BCBS OF [facility] [id number] 2019-Chiqui [phone] [address] PPO/POS [place] - OUT OF t [id number] [place] [address] documented as of this encounter
--- OUTSIDE RECORDS SUMMARY | 2020-06-02 15:54 | XMS REPORT | Summary of Care ---
:1995 Author Organization [facility] - [facility] Address [address] [place] [address] Care Team Providers Name Role Phone MD Bello Primary Care Provider Encounter Details Date Type Department Care Team Description 03/23/2020 Orders Only [facility] Doctor Unassigned, No 301 [facility] [place] [address] [address] [place] [id number] Allergies Active Allergy Reactions Severity Noted Date [...] 9 Active Z-RUT) 250 mg mouth tabletIndications: SEE-INSTRUCTIONS. Streptococcal sore Take 500 mg day throat 1, then 250 mg days 2 to 5. cetirizine (ZYRTEC) 10 Take 1 tablet by 10 tablet 0 05/26/2019 Active mg tabletIndications: mouth daily. Allergic rhinitis, unspecified seasonality, unspecified trigger fluticasone propionate Use 1 [place] in 16 g 0 05/26/2019 Active (FLONASE ALLERGY each nostril RELIEF) 50 daily. mcg/actuation nasal sprayIndications: Allergic rhinitis, unspecified seasonality, unspecified trigger documented as of this encounter (statuses as of 03/23/2020) Active Problems Problem Noted Date Visit for annual health examination 05/26/2019 Diarrhea, unspecified type 05/26/2019 Allergic rhinitis, unspecified seasonality, unspecifie d trigger 05/26/2019 Need for influenza vaccination 05/26/2019 Non-recurrent acute suppurative otitis media of right ear without 05/08/2019 spontaneous rupture of tympanic membrane Acute otitis externa of right ear, unspecified type Right ear pain 05/08/2019 documented as of this encounter (statuses as of 03/23/2020) Resolved Problems Problem Noted Date Resolved Date Left knee pain 05/07/2015 02/15/2016 documented as [...] Used Alcohol Use Drinks/Week oz/Week Comments No Sex Assigned at Date Recorded Not on [...] Treatment Date Type Specialty Care Team Description 03/23/2020 Initial Obstetrics & Acevedo, Annetta Clay MD Visit Gynecology [address] [place] [address] DR. Lewis, [facility]5 15 Health Maintenance Due Date Last Done Comments [...] Name Priority Date/Time Associated Diagnosis Comme nts ASSIGNMENT OF BENEFITS Routine 03/23/2020 7:56 AM CDT documented in this encounter Results Not on filedocumented in this encounter Insurance Payer Benefit Plan Subscriber ID Effective Dates Phone Address Type / Group BCBS OF [facility] [id number] 2019-Chiqui [phone] [address] PPO/POS [place] - OUT OF t [id number] [place] [address] documented as of this encounter
--- OUTSIDE RECORDS SUMMARY | 2020-06-02 15:54 | XMS REPORT | Summary of Care ---
:1995 Author Organization [facility] Address [address] [place] [address] Care Team Providers Name Role Phone MD Bello Primary Care Provider Reason for Visit Reason Comments Rx Concern/Question PA needed for kieran Encounter Details Date Type Department Care Team Description 03/26/2020 Telephone [facility] Women's Annetta Acevedo MD Rx Concern/Question Healthcare- [address] (PA needed for [address] [place] [address] [address], [address] [id number] [phone] Allergies Active Allergy Reactions Severity Noted Date Comments Penicillins Rash 05/07/2015 documented as of this encounter (statuses as of 03/29/2020) Medications Medication Sig Dispensed Refills Start Date [...] seasonality, unspecified trigger fluticasone propionate Use 1 [place] in 16 g 0 05/26/2019 Active (FLONASE [...] as of this encounter (statuses as of 03/29/2020) Active Problems Problem Noted Date Obesity (BMI 30-39.9) 03/23/2020 Allergic rhinitis, unspecified seasonality, unspecifie d trigger 05/26/2019 Need for influenza vaccination 05/26/2019 Estimated Date of Delivery Comments Yes 11/19/2020 documented as of this encounter (statuses as of 03/29/2020) Resolved Problems Problem Noted Date Resolved Date Visit for annual health examination 05/26/201903/09 Diarrhea, unspecified type 05/26/2019 03/23/2020 Non-recurrent acute suppurative otitis media of right ear 03/23/2020 without spontaneous rupture of tympanic membrane Acute otitis externa of right ear, unspecified type 05/08/20 19 03/23/2020 Right ear pain 05/08/2019 03/23/2020 Left knee pain 05/07/2015 02/15/2016 documented as of this encounter (statuses as of 03/29/2020) Immunizations Name Administration Dates Next Due DTAP [...] encounter Miscellaneous Notes Telephone Encounter - Ce Soot RN - 03/29/2020 1:17 PM CDTPA submitted via [employer]ek[employer] Ce Soto RN 03/29/2020 1:17 PM Telephone Encounter - Gisele Casiano - 03/26/2020 3:22 PM CDTReceived fax, [place] request doxylamine-pyridoxine, vit B6, (DICLEGIS) 10-10 mg per tablet documented in this encounter Plan of Treatment Date Type Specialty Care Team Description 04/06/2020 Routine Obstetrics & Acevedo, Annetta Clay MD Visit Gynecology [address] [place] [address] DR. [place], [place] [address] [phone] Health Maintenance Due Date Last Done Comments MENINGOCOCCAL B VACCINES (2 12/28/2015 11/30/2015 of 2 - Risk Bexsero 2-dose series) HPV VACCINES (2 - 3-dose 03/14/2016 02/15/2016 series) INFLUENZA VACCINE (#1) 2020 05/26/2019, 10/07/2001 Depression Screening 05/26/2020 05/26/2019 DTaP,Tdap,and Td Vaccines 02/22/2021 02/22/2011, 10/07/2001 , (7 - Td) 09/20/1998, Additional history exists CHLAMYDIA SCREENING 03/23/2021 03/23/2020, 06/07/2018 PAP SMEAR 06/07/2023 Postponed from 09/23/2018 (Alte [...] Phone Address Type / Group BCBS OF [facility] [id number] 2019-Chiqui [phone] [address] PPO/POS [place] - OUT OF t [id number] [place] [address] documented as of this encounter
--- OUTSIDE RECORDS SUMMARY | 2020-06-02 15:55 | XMS REPORT | Summary of Care ---
:1995 Author Organization [facility] Address [address] [place], [place] [address] Care Team Providers Name Role Phone MD Bello Primary Care Provider Reason for Referral Radiology Services (STAT) Status Reason Specialty Diagnoses / Referred By Referred To Procedures Contact Contact New Request Diagnostic Diagnoses Vaginal spotting Giorgio Appiah, Radiology Procedures US FIRST TRIMESTER LESS THAN 14 WEEKS WITH TRANSVAGINAL US TRANSVAGINAL [address] [place] [address] [address] [place] [address] Reason for Visit Reason Comments SPOTTING Auth/Cert Status Reason Specialty Diagnoses / Referred By Referred To Procedures Contact Contact Emergency Medicine [facility] Em ergency Dept [address] [place] [address] Fax: Encounter Details Date Type Department Care Team Description 04/05/2020 Emergency [facility]-Emergency Giorgio Appiah MD Vaginal spotting (Primary Dx); Department [address] [place] [address] Threatened miscarriage; [address] [facility] [address] Urinary tract infection [place], [place] [address] [phone] Allergies Active Allergy Reactions Severity Noted Date [...] tablet by 1 tablet 0 9 Active Z-ERMIAS) 250 mg mouth tabletIndications: SEE-INSTRUCTIONS Streptococcal sore . Take 500 mg throat day 1, then 250 mg days 2 to 5. cetirizine (ZYRTEC) 10 Take 1 tablet by 10 tablet 0 05/26/2019 Active mg tabletIndications: mouth daily. Allergic rhinitis, unspecified seasonality, unspecified trigger fluticasone propionate Use 1 [place] in 16 g 0 05/26/2019 Active (FLONASE [...] and Vomiting (N/V) (alternate with unisom/vitamin B6). Nitrofurantoin&Nit. Take 1 capsule 10 capsule 0 04/05/2020 Active Macrocryst (MACROBID) by mouth 2 (two) 100 mg times daily. capsuleIndications: Vaginal spotting, Threatened miscarriage, Urinary tract infection with hematuria, site unspecified documented as of this encounter (statuses as [...] been in contact with No / Unsure 04/05/2020 9:20 AM CDT someone who was confirmed or suspected to have Coronavirus / COVID-19? documented as of this encounter Last Filed Vital Signs Vital Sign Reading Time Taken Comments Blood Pressure 147/99 04/05/2020 12:06 PM CDT Pulse 97 04/05/2020 12:06 PM CDT Temperature 37.4 C (99.3 F) 04/05/2020 9:28 AM CDT Respiratory Rate 20 04/05/2020 12:06 PM CDT Oxygen Saturation 99% 04/05/2020 12:06 PM CDT Inhaled Oxygen Concentration - - Weight 90.7 kg (200 lb) 04/05/2020 9:28 AM CDT Height 165.1 cm (5' 5") 04/05/2020 9:28 AM CDT Body Mass Index 33.28 04/05/2020 9:28 AM CDT documented in this encounter Discharge Instructions InstructionsGiorgio Appiah MD - 04/05/2020 RETURN FOR ANY QUESTIONS OR CONCERNS Today you were seen by Giorgio Appiah Jr., MD You were seen today for Chief Complaint Patient presents with SPOTTING Your ER diagnosis was ICD-10-CM ICD-9-CM 1. Vaginal spotting N93.9 623.8 2. Threatened miscarriage O20.0 640.00 3. Urinary tract infection with hematuria, site unspecified N39.0 599.0 R31.9 599.70 NO LIFE-THREATENING FINDINGS ON TODAY'S EXAM. YOUR PRESCRIPTIONS : Check out [employer] for medication discounts Medication List ASK your doctor about these medications azithromycin 250 mg tablet Commonly known as: Zithromax Z-Ermias Take 1 tablet by mouth SEE-INSTRUCTIONS. Take 500 mg day 1, then 250 mg days 2 to 5. cetirizine 10 mg tablet Commonly known as: ZyrTEC Take 1 tablet by mouth daily. doxylamine-pyridoxine (vit B6) 10-10 mg per tablet Commonly known as: Diclegis Take 1 tablet by mouth SEE-INSTRUCTIONS. fluticasone propionate 50 mcg/actuation nasal spray Commonly known as: Flonase Allergy Relief Use 1 [place] in each nostril daily. ketoconazole 2 % cream Commonly known as: NIZORAL Apply to area(s) daily. metoclopramide HCl 10 mg tablet Commonly known as: REGLAN Take 1 tablet by mouth every 6 (six) hours as needed for Nausea and Vomiting (N/V) (alternate with unisom/vitamin B6). -1 ORAL proMETHazine 25 mg tablet Commonly known as: PHENERGAN Take 1 tablet by mouth every 6 (six) hours as needed for Nausea and Vomiting (N/V). triamcinolone acetonide 0.1 % cream Commonly known as: TRIDERM Apply to area(s) 2 (two) times daily. ER precautions and follow up : 1. Return to ER if your symptoms should worsen or fail to improve within 72 hours. 2. The care provided in the emergency room was for acute problems only. 3. You should follow up with your primary care provider within 72 hours. 4. Fill and take all your medications as prescribed. 5. Make sure you are staying adequately hydrated. Busque attencion immediatamente si usted tiene los sitomas sigue, vuelve peor o si hay sitomas nuevas o para cualquiera preoccupacion incluyendo dolor del pecho, falta aire, se siente debile, mas fievre, mas dolor, nausea, vomitando, sangrando que no es normal, confusion, baja or pierdas conciencia. MAY FOLLOW-UP WITH A PROVIDER OF YOUR CHOICE, SUCH : 1. A PHYSICIAN OF YOUR CHOICE 2. [facility], . LOCATIONS IN [facility] 3. [facility], [address] [place] [address]; [phone] OR, IF YOU WISH TO FOLLOW-UP WITHIN THE [facility], MAY TRY THESE OPTIONS (CLINIC APPOINTMENTS AVAILABLE ON [id number] BASIS): 1. SCHEDULE AN APPOINTMENT ONLINE AT WWW.[facility] 2. OR CALL THE [facility] ACCESS CENTER AT OR 3. OR CALL YOUR [facility] PHYSICIAN'S OFFICE DIRECTLY IF YOU ARE ALREADY AN ESTABLISHED [facility] PATIENT. [facility] RETURN TO WORK / SCHOOL EXCUSE Collin Lee WAS SEEN IN THE ER AND DISCHARGED 04/05/2020 TODAY, 12:05 PM & May return to Work / School / Incarceration on X with activity as tolerated indicated below. ___The following limitations apply until pt is seen by Physician and cleared to return to normal activity. _X_ Off for two days and return to activity as tolerated at work or school ___ No Sports ___ No work ___ Do not return until fever free for 24 hours. ___ No school GIORGIO APPIAH Jr., MD [facility] EMERGENCY DEPRTMENT [address] [place] [address] [place] [address] ### The patient may have been given Narcotic pain medications during their stay in the ED that may show up on a Drug Screen. The hospital discharge paper work will identify these medications. AttachmentsThe following attachments cannot be sent through Care Everywhere. Bladder Infection, Female (Adult) (German)Possible Miscarriage (Threatened ) (German)documented in this encounter Progress Notes Candace Flores - 04/05/2020 11:41 AM CDTRoutine rounding ED visit; patient stated no support needed/wanted at this time; follow-up corporate safety coordinator support is available if needed/wanted. documented in this encounter ED Notes Tatum Townsend RN - 04/05/2020 9:27 AM CDTPatient states she is approx 8wks . She is under the care of Dr Acevedo as her OB. This morning when she woke up she used restroom and noticed pink spots on toilet paper. Denies heavy bleeding and clots. States she is scheduled for ultrasound today. LMP: 02-10-2020 [id number] signed by Tatum Townsend RN at 04/05/2020 9:29 AM RYANTGiorgio Appiah MD - 04/05/2020 9:21 AM CDT EMERGENCY DEPARTMENT ENCOUNTER [facility] Patient Name: Collin Lee Date of : 1995 24 year old Exam Room:TX4/TX4 Primary Care Physician: Mike Monsalve Pre- Hospital Patient Escorted by: Family [5] Mode of Arrival: Personal means [1] EMS Treatment Prior to ED Arrival: Chief Complaint Chief Complaint Patient presents with SPOTTING HPI History provided by: Patient Vaginal Bleeding- Quality: Spotting Severity: Mild Onset quality: Sudden Duration: 1 day Timing: Intermittent Chronicity: New Prior : yes confirmed by ultrasound: no Gestational age: 8 weeks care: Regular care Number of pads used: None Number of tampons used: None Context: after urination Relieved by: Nothing Worsened by: Nothing Associated symptoms: abdominal pain Associated symptoms: no dizziness, no dysuria, no fatigue, no fever and no nausea Risk factors: no bleeding disorder, no gynecological surgery and no hx of ectopic Past Medical History / Immunizations Past Medical History: Diagnosis Date Seasonal allergies Tetanus received in last 5 years: Yes Childhood immunizations: Up-to-date Past Surgical History Past Surgical History: Procedure Laterality Date JOINT SURGERY Lt ACL & Menis. repair. 08/2014 TOOTH EXTRACTION Allergies Allergies Allergen Reactions Pcn [Penicillins] Rash Social History Tobacco Use Never smoked or used smokeless tobacco. Alcohol Use No. Drug Use No. Sexual Activity Sexually active; Partners: Male; Control/Protection: None. Review of Systems Review of Systems Constitutional: Negative. Negative for chills, fatigue, fever and unexpected weight change. HENT: Negative. Eyes: Negative. Negative for discharge and itching. Respiratory: Negative. Negative for cough, chest tightness, shortness of breath and wheezing. Cardiovascular: Negative. Negative for chest pain and palpitations. Gastrointestinal: Positive for abdominal pain. Negative for abdominal distention, nausea and vomiting. Genitourinary: Positive for vaginal bleeding. Negative for dysuria, urgency, frequency and flank pain. Musculoskeletal: Negative. Skin: Negative. Negative for color change, pallor and wound. Neurological: Negative. Negative for dizziness, syncope, light-headedness and headaches. Psychiatric/Behavioral: Negative. Negative for agitation and behavioral problems. All other systems reviewed and are negative. Endocrine: Endocrine negative Physical Exam BP (!) 146/86 | Pulse 85 | Temp 37.4 C (99.3 F) (Oral) | Resp 20 | Ht 1.651 m (5' 5") | Wt 90.7 kg (200 lb) | LMP 02/13/2020 (Exact Date) | SpO2 98% | BMI 33.28 kg/m Physical Exam Vitals signs reviewed. Constitutional: Appearance: She is well-developed. HENT: Head: Normocephalic and atraumatic. Nose: Nose normal. Eyes: Conjunctiva/sclera: Conjunctivae normal. Neck: Musculoskeletal: Normal range of motion and neck supple. Trachea: No tracheal deviation. Cardiovascular: Rate and Rhythm: Normal rate and regular rhythm. Heart sounds: Normal heart sounds. No murmur. No friction rub. Pulmonary: Effort: Pulmonary effort is normal. No respiratory distress. Breath sounds: Normal breath sounds. No stridor. No wheezing or rales. Abdominal: General: Bowel sounds are normal. There is no distension. Palpations: Abdomen is soft. Tenderness: There is abdominal tenderness in the suprapubic area. There is no guarding or rebound. Musculoskeletal: Normal range of motion. Skin: General: Skin is warm and dry. Neurological: Mental Status: She is alert and oriented to person, place, and time. Cranial Nerves: No cranial nerve deficit. Sensory: No sensory deficit. Psychiatric: Behavior: Behavior normal. Thought Content: Thought content normal. Judgment: Judgment normal. Labs Recent Results (from the past 24 hour(s)) CBC with Differential Collection Time: 04/05/20 9:35 AM Result Value Ref Range WBC 11.71 (H) 4.30 - 11.10 10*3/L RBC 4.85 3.93 - 5.25 10*6/L HGB 13.9 11.6 - 15.0 g/dL HCT 42.4 35.7 - 45.2 % MCV 87.4 80.6 - 95.5 fL MCH 28.7 25.9 - 32.8 pg MCHC 32.8 31.6 - 35.1 g/dL RDW-SD 45.5 39.0 - 49.9 fL RDW-CV 14.2 12.0 - 15.5 % PLT 308 166 - 358 10*3/L MPV 12.3 9.5 - 12.9 fL NRBC/100 WBC 0.0 0.0 - 10.0 /100 WBCs NRBC x10^3 <0.01 10*3/L GRAN MAT (NEUT) % 70.7 % IMM GRAN % 0.70 % LYMPH % 21.0 % MONO % 6.4 % EOS % 0.7 % BASO % 0.5 % GRAN MAT x10^3(ANC) 8.28 (H) 1.88 - 7.09 10*3/uL IMM GRAN x10^3 0.08 (H) 0.00 - 0.06 10*3/uL LYMPH x10^3 2.46 1.32 - 3.29 10*3/uL MONO x10^3 0.75 0.33 - 0.92 10*3/uL EOS x10^3 0.08 0.03 - 0.39 10*3/uL BASO x10^3 0.06 0.01 - 0.07 10*3/uL Basic Metabolic Panel (NA, K, CL, CO2, GLUCOSE, BUN, CREATININE, CA) Collection Time: 04/05/20 9:35 AM Result Value Ref Range NA 136 135 - 145 mmol/L K 4.1 3.5 - 5.0 mmol/L CL 101 98 - 108 mmol/L CO2 TOTAL 24 23 - 31 mmol/L AGAP 11 2 - 16 BUN 9 7 - 23 mg/dL GLUCOSE 106 70 - 110 mg/dL CREATININE 0.50 0.50 - 1.04 mg/dL CALCIUM 9.2 8.6 - 10.6 mg/dL eGFR Calculation (Non-) 154.3 mL/min/1.73m2 eGFR Calculation () 187.0 mL/min/1.73m2 Hepatic Function Panel (ALB, T.PRO, BILI T, BU/BC, ALT, AST, ALK PHOS) Collection Time: 04/05/20 9:35 AM Result Value Ref Range TOTAL BILI 0.5 0.1 - 1.1 mg/dL BILI UNCON 0.6 0.1 - 1.1 mg/dL BILI CONJ 0.0 0.0 - 0.3 mg/dL T PROTEIN 8.1 6.3 - 8.2 g/dL ALBUMIN 4.2 3.5 - 5.0 g/dL ALK PHOS 76 34 - 122 U/L ALTv 18 5 - 35 U/L AST(SGOT) 24 13 - 40 U/L aPTT Collection Time: 04/05/20 9:35 AM Result Value Ref Range APTT Patient 33 23 - 38 Seconds Prothrombin Time (PT) / INR Collection Time: 04/05/20 9:35 AM Result Value Ref Range PROTIME PATIENT 12.6 12.0 - 14.7 Seconds INR 1.0 TOTAL BETA HCG ASSAY Collection Time: 04/05/20 9:35 AM Result Value Ref Range BETA HCG 41,975.00 Non- female and male patients: <5 mIU/mL URINALYSIS Collection Time: 04/05/20 9:35 AM Result Value Ref Range APPEARANCE Cloudy (A) Clear COLOR Yellow Yellow PH 5.0 4.8 - 8.0 SP GRAVITY 1.020 1.003 - 1.030 GLU U QUAL Normal Normal BLOOD 3+ (A) Negative KETONES Negative Negative PROTEIN Negative Negative UROBILIN Normal Normal BILIRUBIN Negative Negative NITRITE Negative Negative LEUK DANNY 75/uL (A) Negative RBC/HPF 7 (H) 0 - 3 HPF WBC/HPF 15 (H) 0 - 5 HPF BACTERIA Few (A) Negative MUCOUS Moderate (A) Negative LPF SQ EPITH 62 HPF Type and Screen - ONCE STAT Collection Time: 04/05/20 9:36 AM Result Value Ref Range ABO & RH O Positive IAT Negative Imaging Hospital Encounter on 04/05/20 US FIRST TRIMESTER LESS THAN 14 WEEKS WITH TRANSVAGINAL Narrative Patient name: COLLIN LEE : 1995 24 years EXAMINATION: US FIRST TRIMESTER LESS THAN 14 WEEKS WITH TRANSVAGINAL Ordering Physician: GIORGIO APPIAH CLINICAL HISTORY: r/o ectopic COMPARISON: None TECHNIQUE: Transabdominal and transvaginal grayscale and Doppler images of the gravid uterus were performed. FINDINGS: There is a single intrauterine gestational sac with normal shape and subjectively normal fluid. Mean sac diameter of 20 mm correlates 7 weeks and 0 days gestation. Yolk sac and pole identified with crown-rump length of 6.7 mm, correlating to 6 weeks and 4 days gestation. Composite gestational age by ultrasound 6 weeks and 6 days. heart tones identified at 118 bpm. Small subchorionic hematoma. No suspicious uterine lesions. Both ovaries demonstrate normal Doppler flow. No suspicious ovarian lesions. No pelvic free fluid. Impression Single live intrauterine gestation with small subchorionic hematoma. RL: 7000 Orders and Treatments Orders Placed This Encounter Procedures US FIRST TRIMESTER LESS THAN 14 WEEKS WITH TRANSVAGINAL CBC with Differential Basic Metabolic Panel (NA, K, CL, CO2, GLUCOSE, BUN, CREATININE, CA) Hepatic Function Panel (ALB, T.PRO, BILI T, BU/BC, ALT, AST, ALK PHOS) aPTT Prothrombin Time (PT) / INR TOTAL BETA HCG ASSAY Type and Screen - ONCE STAT URINALYSIS URINE CULTURE Orders Placed This Encounter Medications Nitrofurantoin&Nit. Macrocryst (MACROBID) 100 mg capsule Procedures See ED Procedure Note Notes & MDM Patient was evaluated for an emergency medical condition related to SPOTTING . Differential diagnoses considered by presenting complaints but not limited to: Ectopic Threatened miscarriage Assessment: Pt has a threatened miscarriage. Many white cells in urine. Will cover for UTI. Pt scheduled to see Dr. Acevedo today. Will DC to follow up. History, physical exam findings, results of visit, differential diagnosis, medication regimens and plan of future care have been considered. Additional MDM may be found in the ED course. Differential diagnosis considered and final disposition made based on information gathered during evaluation and may not be completely ruled out or specifically listed. Vital signs were rechecked before final disposition. Diagnosis ICD-10-CM ICD-9-CM 1. Vaginal spotting N93.9 623.8 2. Threatened miscarriage O20.0 640.00 3. Urinary tract infection with hematuria, site unspecified N39.0 599.0 R31.9 599.70 Disposition & Follow Up ED Disposition ED Disposition Condition Comment Disch - Home Stable Patient's Medications START taking these medications NITROFURANTOIN&NIT. MACROCRYST (MACROBID) 100 MG CAPSULE Take 1 capsule by mouth 2 (two) times daily. CONTINUE taking these medications which have NOT CHANGED AZITHROMYCIN (ZITHROMAX Z-ERMIAS) 250 MG TABLET Take 1 tablet by mouth SEE- INSTRUCTIONS. Take 500 mg day 1, then 250 mg days 2 to 5. CETIRIZINE (ZYRTEC) 10 MG TABLET Take 1 tablet by mouth daily. DOXYLAMINE-PYRIDOXINE, VIT B6, (DICLEGIS) 10-10 MG PER TABLET Take 1 tablet by mouth SEE-INSTRUCTIONS. FLUTICASONE PROPIONATE (FLONASE ALLERGY RELIEF) 50 MCG/ACTUATION NASAL SPRAY Use 1 [place] in eachnostril daily. KETOCONAZOLE 2 % CREAM Apply to area(s) daily. METOCLOPRAMIDE HCL 10 MG TABLET Take 1 tablet by mouth every 6 (six) hours as needed for Nausea and Vomiting (N/V) (alternate with unisom/vitamin B6). 25/IRON FUM/FOLIC/DHA (-1 ORAL) Take by mouth. PROMETHAZINE 25 MG TABLET Take 1 tablet by mouth every 6 (six) hours as needed for Nausea and Vomiting (N/V). TRIAMCINOLONE ACETONIDE 0.1 % CREAM Apply to area(s) 2 (two) times daily. START taking Modified Medications as Prescribed No medications on file STOP taking these medications No medications on file Giorgio Appiah Jr., MD Clinical Galvanizing [employer] [facility] Emergency Department documented in this encounter Plan of Treatment Date Type Specialty Care Team Description 04/05/2020 Routine Obstetrics & Acevedo, Annetta Clay MD Visit Gynecology [address] [place] [address] [facility] [place] [address] [phone] Name Type Priority Associated Diagnoses Order S chedule URINE CULTURE LAB Routine Vaginal spotting ONCE for 1 Occurrences starting 04/05/2020 unti l 04/05/2020 Health Maintenance Due Date Last Done Comments [...] Procedure Name Priority Date/Time Associated Comments Diagnosis US FIRST STAT 04/05/2020 10:18 Vaginal spotting R esults for this TRIMESTER LESS THAN AM CDT procedur e are in 14 WEEKS WITH the results TRANSVAGINAL section. HB ABO GROUPING STAT 04/05/2020 9:36 Vaginal spotting Resu lts for this AM CDT procedure are i n the results section. URINALYSIS STAT 04/05/2020 9:35 Vaginal spotting Results for this AM CDT procedure are i n the results section. ACTIVATED PARTIAL STAT 04/05/2020 9:35 Vaginal spotting Re sults for this THRMPLAS ROMULO AM CDT procedure are i n the results section. PROTHROMBIN TIME / STAT 04/05/2020 9:35 Vaginal spotting R esults for this INR AM CDT procedure are i n the results section. CBC WITH DIFF STAT 04/05/2020 9:35 Vaginal spotting Result s for this AM CDT procedure are i n the results section. TOTAL BETA HCG ASSAY STAT 04/05/2020 9:35 Vaginal spotting Results for this AM CDT procedure are i n the results section. BASIC METABOLIC PANEL STAT 04/05/2020 9:35 Vaginal spottin g Results for this (NA, K, CL, CO2, AM CDT procedure a re in GLUCOSE, BUN, the results CREATININE, CA) section. HEPATIC FUNCTION STAT 04/05/2020 9:35 Vaginal spotting Res ults for this PANEL (08491) AM CDT procedure are in (ALB,T.PRO,BILI the results T,BU/BC,ALT,AST,ALK section. PHOS) NOTICE OF PRIVACY Routine 04/05/2020 9:20 PRACTICES AM CDT documented in this encounter Results US FIRST TRIMESTER LESS THAN 14 WEEKS WITH TRANSVAGINAL (04/05/2020 10:18 AM CDT) Specimen Impressions Performed At Single live intrauterine gestation with small subchorionic hematoma. PACS/VR/DOSE RL: 7000 1 1:43 AM Narrative Performed At Patient name: COLLIN LEE PACS/VR/DOSE : 1995 24 years EXAMINATION: US FIRST TRIMESTE R LESS THAN 14 WEEKS WITH TRANSVAGINAL Ordering Physician: GIORGIO APPIAH CLINICAL HISTORY: r/o ectopic COMPARISON: None TECHNIQUE: Transabdominal and transvaginal grayscale and Doppler images of the gravid uterus were performed. FINDINGS: There is a single intrauterine gestation al sac with normal shape and subjectively normal fluid. Mean sac diam eter of 20 mm correlates 7 weeks and 0 days gestation. Yolk sac and pole identified with crown-rump length of 6.7 mm, correlating to 6 weeks and 4 days gestation. Composite gestational age by ultrasound 6 weeks an d 6 days. heart tones identified at 118 bpm. Small subchorionic hematoma. No suspicious uterine lesions. Both ovaries demonstrate normal Doppler flow. No suspicious ovarian lesions. No pelvic free fluid. Procedure Note [facility], Radiant Results Inft User - 2019 11:45 AM CDT Patient name: COLLIN LEE : 1995 24 years EXAMINATION: US FIRST TRIMESTE R LESS THAN 14 WEEKS WITH TRANSVAGINAL Ordering Physician: GIORGIO APPIAH CLINICAL HISTORY: r/o ectopic COMPARISON: None TECHNIQUE: Transabdominal and transvaginal grayscal e and Doppler images of the gravid uterus were performed. FINDINGS: There is a single intrauterine gestation al sac with normal shape and subjectively normal fluid. Mean sac diam eter of 20 mm correlates 7 weeks and 0 days gestation. Yolk sac and pole identified with crown-rump length of 6.7 mm, correlating to 6 weeks and 4 days gestation. Composite gestational age by ultrasound 6 weeks an d 6 days. heart tones identified at 118 bpm. Small subchorioni c hematoma. No suspicious uterine lesions. Both ovaries demonstrate normal Doppler flow. No suspicious ovarian lesions. No pelvic free fluid. IMPRESSION Single live intrauterine gestation with small subchorionic hematoma. RL: 7000 Performing Organization Address City/[facility] Phone Number PACS/VR/DOSE Type and Screen - ONCE STAT (04/05/2020 9:36 AM CDT) Pathologist Sig nature ABO & RH O Positive LAB Comment: Performed at [facility] Laboratory Services - [facility] Blood Bank [address] [place] [phone] Toll Free: [phone] CLIA No. [id number] IAT Negative LAB Comment: Performed at [facility] Laboratory Services - [facility] Blood Bank [address] [place] [phone] Toll Free: [phone] CLIA No. [id number] Specimen Blood - VENOUS Performing Organization Address City/[facility]/Zipcode Phone Number BLD LAB URINALYSIS (04/05/2020 9:35 AM CDT) Pathologist Sig nature APPEARANCE Cloudy (A) Clear [facility] COLOR Yellow Yellow [facility] PH 5.0 4.8 - 8.0 [facility] SP GRAVITY 1.020 1.003 - 1.030 [facility] GLU U QUAL Normal Normal [facility] BLOOD 3+ (A) Negative [facility] KETONES Negative Negative [facility] PROTEIN Negative Negative [facility] UROBILIN Normal Normal [facility] BILIRUBIN Negative Negative [facility] NITRITE Negative Negative [facility] LEUK DANNY 75/uL (A) Negative [facility] RBC/HPF 7 (H) 0 - 3 HPF [facility] WBC/HPF 15 (H) 0 - 5 HPF [facility] BACTERIA Few (A) Negative [facility] MUCOUS Moderate (A) Negative LPF [facility] SQ EPITH 62 HPF [facility] Specimen Urine - URINE, CLEAN CATCH Performing Organization Address City/[facility] Phone Number [facility] CLIA: [id number] [place] [address] TOTAL BETA HCG ASSAY (04/05/2020 9:35 AM CDT) Pathologist [facility] BETA HCG 41,975.00 Non- female [facility] and male patients: HOSPITAL LABORATORY <5 mIU/mL Specimen Blood - VENOUS Narrative Performed At [facility] Gestational Age Range (mIU/mL) 1-10 Weeks [id number] 11-15 Weeks [id number] 16-22 Weeks [id number] 23-40 Weeks [id number] Biotin has been reported to cause a negative bias, interpret results relative to patient's use of biotin. Performing Organization Address [facility] [employer] Phone Number [facility] CLIA: [id number] [place] [address] Prothrombin Time (PT) / INR (04/05/2020 9:35 AM CDT) Pathologist [facility] PROTIME PATIENT 12.6 12.0 - 14.7 [facility] Seconds [facility] LABORATORY INR 1.0Comment: Normal [facility] INR <1.1; Warfarin [facility] Therapeutic range LABORATORY 2.0 to 3.0 or 2.5 to 3.5, depending upon the indications. Specimen Blood - VENOUS Performing Organization Address City/[facility] Phone Number [facility] CLIA: [id number] [place] [address] aPTT (04/05/2020 9:35 AM CDT) Pathologist Sig nature APTT Patient 33 23 - 38 Seconds [facility] LABORATORY Specimen Blood - VENOUS Narrative Performed At The [facility] patient population mean normal value [facility] LABORATORY for aPTT is 30 seconds. Performing Organization Address [facility] Phone Number [facility] CLIA: [id number] [place] [address] LABORATORY [address] [facility] Hepatic Function Panel (ALB, T.PRO, BILI T, BU/BC, ALT, AST, ALK PHOS) (04/05/2020 9:35 AM CDT) Pathologist Sig nature TOTAL BILI 0.5 0.1 - 1.1 mg/dL [facility] LABORAT[facility] BILI UNCON 0.6 0.1 - 1.1 mg/dL [facility] LAB[facility] BILI CONJ 0.0 0.0 - 0.3 mg/dL [facility] T PROTEIN 8.1 6.3 - 8.2 g/dL [facility] LAB[facility] ALBUMIN 4.2 3.5 - 5.0 g/dL [facility] ALK PHOS 76 34 - 122 U/L [facility] ALTv 18 5 - 35 U/L [facility] AST(SGOT) 24 13 - 40 U/L [facility] LABOR[facility] Specimen Blood - VENOUS Performing Organization Address [facility] Phone Number [facility] CLIA: [id number] [place] [address] [place] [address] Basic Metabolic Panel (NA, K, CL, CO2, GLUCOSE, BUN, CREATININE, CA) (04/05/2020 9:35 AM CDT) Pathologist Sig nature NA 136 135 - 145 mmol/L [facility] K 4.1 3.5 - 5.0 mmol/L [facility]OR[facility] CL 101 98 - 108 mmol/L [facility] CO2 TOTAL 24 23 - 31 mmol/L [facility] AGAP 11 2 - 16 [facility] BUN 9 7 - 23 mg/dL [facility] GLUCOSE 106 70 - 110 mg/dL [facility] CREATININE 0.50 0.50 - 1.04 [facility] mg/dL [facility] LABORATORY CALCIUM 9.2 8.6 - 10.6 mg/dL [facility] LAB[facility] eGFR Calculation 154.3 mL/min/1.73m2 [facility] (Non-) [facility] LABORATOR Y eGFR Calculation 187.0 mL/min/1.73m2 [facility] () [facility] LABORATORY Specimen Blood - VENOUS Narrative Performed At [facility] of Glomerular Filtration Rate (GFR) [facility] LABORATORY and Staging of Kidney Disease* + + +- + | GFR (mL/min/1.73 m2) | With Kidney Damage | Without Kidney Damage + + +- + | >90 | Stage one | Normal + + +- + | 60-89 | Stage two | Decreased GFR + + +- + | 30-59 | Stage three | Stage three + + +- + | 15-29 | Stage four | Stage four + + +- + | <15 (or dialysis) | Stage five | Stage five + + +- + *Each stage assumes the associated GFR level has been in effect for at least three months. Stages 1 to 5, with or without kidney disease, indicate chronic kidney disease. Notes: Determination of stages one and two (with eGFR >59mL/min/1.73 m2) requires estimation of kidney damage for at least three months as defined by structural or functional abnormalities of the kidney, manifested by either: Pathological abnormalities or Markers of kidney damage (including abnormalities in the composition of the blood or urine or abnormalities in imaging tests). Performing Organization Address City/State/Zipcode Phone Number [facility] CLIA: [id number] [place] [address] CBC with Differential (04/05/2020 9:35 AM CDT) Pathologist [facility] nature WBC 11.71 (H) 4.30 - 11.10 [facility] 10*3/L [facility] LABORATORY RBC 4.85 3.93 - 5.25 [facility] 10*6/L [facility] LABORATORY HGB 13.9 11.6 - 15.0 [facility] g/dL [facility] LABORATORY HCT 42.4 35.7 - 45.2 % [facility] MCV 87.4 80.6 - 95.5 fL [facility] MCH 28.7 25.9 - 32.8 pg [facility] LAB[facility] MCHC 32.8 31.6 - 35.1 [facility] g/dL [facility] LABORATORY RDW-SD 45.5 39.0 - 49.9 fL [facility] LAB[facility] RDW-CV 14.2 12.0 - 15.5 % [facility] LABOR[facility] PLT 308 166 - 358 [facility] 10*3/L [facility] LABORATORY MPV 12.3 9.5 - 12.9 fL [facility] LAB[facility] NRBC/100 WBC 0.0 0.0 - 10.0 /100 [facility] WBCs [facility] LABORATORY NRBC x10^3 <0.01 10*3/L [facility] LAB[facility] GRAN MAT (NEUT) % 70.7 % [facility] IMM GRAN % 0.70 % [facility] LYMPH % 21.0 % [facility] MONO % 6.4 % [facility] EOS % 0.7 % [facility] BASO % 0.5 % [facility] LAB[facility] GRAN MAT x10^3(ANC) 8.28 (H) 1.88 - 7.09 [facility] 10*3/uL [facility] LABORATORY IMM GRAN x10^3 0.08 (H) 0.00 - 0.06 [facility] 10*3/uL [facility] LABORATORY LYMPH x10^3 2.46 1.32 - 3.29 [facility] 10*3/uL [facility] LABORATORY MONO x10^3 0.75 0.33 - 0.92 [facility] 10*3/uL [facility] LABORATORY EOS x10^3 0.08 0.03 - 0.39 [facility] 10*3/uL [facility] LABORATORY BASO x10^3 0.06 0.01 - 0.07 [facility] 10*3/uL [facility] LABORATORY Specimen Blood - VENOUS Performing Organization Address City/State/Zipcode Phone Number [facility] CLIA: [id number] [place] [address] documented in this encounter Visit Diagnoses Diagnosis Vaginal spotting - Primary Other specified noninflammatory disorder of vagina Threatened miscarriage Threatened , unspecified as to e pisode of care Urinary tract infection with hematuria, site unspecified documented in this encounter Insurance Payer Benefit Plan / Subscriber ID Effective Phone Address T ype Group Dates BCBS OF [place] OF [place] [id number] 2019-Prese [phone] [address] PPO/POS [place] - OUT OF STATE nt 87 [id number] [place] [address] [facility] MEDICAID OF [id number] 2020-Prese [phone] [address] Me dicaid [place] nt 00 [id number] [place] [address] documented as of this encounter
--- OUTSIDE RECORDS SUMMARY | 2020-06-02 15:55 | XMS REPORT | Summary of Care ---
:1995 Author Organization [facility] [employer] Address [address] [place] [address] Care Team Providers Name Role Phone MD Bello Primary Care Provider Reason for Visit Reason Comments CRAMPS Encounter Details Date Type Department Care Team Description 04/27/2020 Routine [facility] Women's AcevedoAnnetta am, MD Vaginal discharge (Primary Dx); Visit Healthcare- [address] [place] [address] Needs flu shot; Geetha SOTELO 10 weeks gestation of ; [address] [place] [address] [address] Threatened miscarriage in early pregnanc y Drive, [address] [place] [address] [phone] Allergies Active Allergy Reactions Severity Noted Date Comments Penicillins Rash 05/07/2015 documented as of this encounter (statuses as of 04/27/2020) Medications Medication Sig Dispensed Refills Start Date End Date Status proMETHazine 25 mg Take 1 tablet by 12 tablet 0 03/16/2018 Active tablet mouth every 6 (six) hours as needed for Nausea and Vomiting (N/V). cetirizine (ZYRTEC) 10 Take 1 tablet by 10 tablet 0 05/26/2019 Active mg tabletIndications: mouth daily. Allergic rhinitis, unspecified seasonality, unspecified trigger fluticasone propionate Use 1 [place] in 16 g 0 05/26/2019 Active (FLONASE [...] as of this encounter (statuses as of 04/27/2020) Active Problems Problem Noted Date Threatened miscarriage in early 04/05/2020 Subchorionic hematoma in first trimester, single or un specified fetus 04/05/2020 Obesity (BMI 30-39.9) 03/23/2020 Allergic rhinitis, unspecified seasonality, unspecifie d trigger 05/26/2019 Need for influenza vaccination 05/26/2019 Estimated Date of Delivery Comments Yes 11/19/2020 Based on last menstr ual period of 02/13/2020 (Exact Date) documented as of this encounter (statuses as of 04/27/2020) Resolved Problems Problem Noted Date Resolved Date Visit for annual health examination 05/26/201903/09 Diarrhea, unspecified type 05/26/2019 03/23/2020 Non-recurrent acute suppurative otitis media of right ear 03/23/2020 without spontaneous rupture of tympanic membrane Acute otitis externa of right ear, unspecified type 05/08/20 19 03/23/2020 Right ear pain 05/08/2019 03/23/2020 Left knee pain 05/07/2015 02/15/2016 documented as of this encounter (statuses as of 04/27/2020) Immunizations Name Administration Dates Next Due DTAP 10/07/2001, 09/20/1998, 03/24/1998, 01/21/1998, 1997 H1n1 Vaccine 06/22/2009 HEPATITIS A 02/07/2008, 05/25/2006, 02/06/2005 HIB 4 Dose Schedule 09/20/1998, 03/24/1998, 01/21/1998, 1997 HPV 02/15/2016 HPV9 02/15/2016 (Deferred: Vaccine Unavailable) Hep B, Adol or Pedi Dosage 06/22/1998, 1997, 8 Influenza Virus Vaccine 10/07/2001 Influenza Virus Vaccine Quad .5 mL IM 04/27/2020, 05/26/2019 6+ MO MMR 10/07/2001, 09/20/1998 Meningococcal B, OMV 11/30/2015 Meningococcal Vaccine 11/30/2015, 12/01/2008 TDAP (ADACEL) VACCINE 02/22/2011 Varicella (varivax)(chicken pox) 02/22/2011, 09/20/1998 documented as of this encounter Social History Tobacco Use Types Packs/Day Years Used Date Never Smoker Smokeless Tobacco: Never Used Alcohol Use Drinks/Week oz/Week Comments No Estimated Date of Delivery Comments Yes 11/19/2020 Based on last menstr ual period of 02/13/2020 (Exact Date) Sex Assigned at Date Recorded Not on file COVID-19 Exposure Response Date Recorded In the last month, have you been in contact with No / Unsure 04/27/2020 10:16 AM CDT someone who was confirmed or suspected to have Coronavirus / COVID-19? documented as of this encounter Last Filed Vital Signs Vital Sign Reading Time Taken Comments Blood Pressure 123/85 04/27/2020 10:35 AM CDT Pulse 76 04/27/2020 10:35 AM CDT Temperature 36.9 C (98.5 F) 04/27/2020 10:35 AM CDT Respiratory Rate 18 04/27/2020 10:35 AM CDT Oxygen Saturation - - Inhaled Oxygen Concentration - - Weight 88.9 kg (196 lb) 04/27/2020 10:35 AM CDT Height 165.1 cm (5' 5") 04/27/2020 10:35 AM CDT Body Mass Index 32.62 04/27/2020 10:35 AM CDT documented in this encounter Progress Notes Annetta Acevedo MD - 04/27/2020 10:15 AM CDT ROUTINE VISIT 04/27/2020 10:23 AM SUBJECTIVE Fernanda Davis is a 24 year old at 10w4d who presents for routine visit. She has abdominal cramping and vaginal spotting, pinkish tinge with wiping. + normal white discharge with no itching or odor. OBJECTIVE LMP 02/13/2020 (Exact Date) FHT: 158 ROS : see HPI Physical Exam: Gen: A&Ox3, NAD CV: RRR Pulm: CTAB Abd: Soft, NTTP, ND, no rebound or guarding Ext: No calf tenderness : greyish discharge, frothy appearing, SVE: closed ASSESSMENT: Fernanda Davis is a 24 year old at 10w4d who presents for routine visit. Plan: See OB Summary RTC as scheduled for PN visit Scribreinier's Attestation Azam Vega am scribing for, and in the presence of, Annetta Acevedo MD who performed the services described here-in. Azam Chavez, April 27, 2020, 10:23 AM Physician's Attestation I have seen and examined the patient and agreed with the note above Annetta Acevedo MD 04/27/2020 11:04 AM documented in this encounter Miscellaneous Notes OB Summary Note - Azam Chavez - 04/27/2020 10:15 AM CDT Age: [age] year old GA: 10w4d Threatened miscarriage - Patient reports abdominal cramping and vaginal spotting with pinkish color that started yesterday 04/26/2020. Patient reports last intercourse was three weeks ago. SVE closed. Single live IUP noted on USG. Rh positive. Miscarriage precautions given Vaginal discharge - GC/CT and vag path collected RTC as scheduled for PN visit Brendenibreinier's Attestation Azam Vega am scribing for, and in the presence of, Annetta Acevedo MD who performed the services described here-in. Azam Chavez, April 27, 2020, 10:22 AM Physician's Attestation I have seen and examined the patient and agreed with the note above Annetta Acevedo MD 04/27/2020 11:03 AM documented in this encounter Plan of Treatment Date Type Specialty Care Team Description 05/10/2020 Routine Obstetrics & Annetta Acevedo MD Visit Gynecology [address] [place] [address] DR. Mejia [place], [place] [address] [phone] Name Type Priority Associated Diagnoses Order S chedule [facility] ONLY - VAGINAL PATHOGENS LAB Routine Vaginal dis charge Ordered: 04/27/2020 BY NUCLEIC ACID TESTING GC & CHLAMYDIA AMPLIFIED ASSAY LAB Routine Vaginal di scharge Ordered: 04/27/2020 Health Maintenance Due Date Last Done Comments [...] Name Priority Date/Time Associated Diagnosis Comme nts <14 WEEKS US Routine 04/27/2020 11:01 AM 10 weeks gestation Re sults for this LIMITED CDT of procedure are in Threatened the results miscarriage in early section . FLU VACC Routine 04/27/2020 11:00 AM Needs flu sh ot ([id number]), 6+ CDT 10 weeks gestation MONTHS, IM, QUAD of documented in this encounter Results <14 WEEKS US LIMITED (04/27/2020 11:01 AM CDT) Specimen Narrative Performed At This result has an attachment that is no t available. - Limited USG for FHT: Single live IUP noted PACS Annetta Acevedo MD 04/27/2020 11:02 AM Performing Organization Address City/State/Zipcode Phone Number PACS documented in this encounter Visit Diagnoses Diagnosis Vaginal discharge - Primary Leukorrhea, not specified as infective Needs flu shot Need for prophylactic vaccination and in oculation against influenza 10 weeks gestation of state, incidental Threatened miscarriage in early pregnanc y Threatened , unspecified as to e pisode of care documented in this encounter Insurance Payer Benefit Plan / Subscriber ID Effective Phone Address T ype Group Dates BCBS OF [employer] OF [place] [id number] 2019-Prese [phone] [address] PPO/POS [place] - OUT OF STATE nt 87 [id number] [place] [address] [facility] MEDICAID OF [id number] 2020-Prese [phone] [address] Me dicaid [place] nt 00 [id number] [place] [address] documented as of this encounter
--- OUTSIDE RECORDS SUMMARY | 2020-06-02 15:55 | XMS REPORT | Summary of Care ---
:1995 Author Organization [facility] Address [address] [place] [address] Care Team Providers Name Role Phone MD Bello Primary Care Provider Reason for Visit Reason Comments Assessment Encounter Details Date Type Department Care Team Description 04/13/2020 Telephone [facility] Women's AcevedoAnnetta MD Assessment Healthcare- [address] [facility], [facility] [address] [place] [address] [place] [address] [phone] Allergies Active Allergy Reactions Severity Noted Date Comments Penicillins Rash 05/07/2015 documented as of this encounter (statuses as of 04/13/2020) Medications Medication Sig Dispensed Refills Start Date End Date Status proMETHazine 25 mg Take 1 tablet by 12 tablet 0 03/16/2018 Active tablet mouth every 6 (six) hours as needed for Nausea and Vomiting (N/V). cetirizine (ZYRTEC) 10 Take 1 tablet by 10 tablet 0 05/26/2019 Active mg tabletIndications: mouth daily. Allergic rhinitis, unspecified seasonality, unspecified trigger fluticasone propionate Use 1 [place] in 16 g 0 05/26/2019 Active (FLONASE [...] as of this encounter (statuses as of 04/13/2020) Active Problems Problem Noted Date Threatened miscarriage in early 04/05/2020 Subchorionic hematoma in first trimester, single or un specified fetus 04/05/2020 Obesity (BMI 30-39.9) 03/23/2020 Allergic rhinitis, unspecified seasonality, unspecifie d trigger 05/26/2019 Need for influenza vaccination 05/26/2019 Estimated Date of Delivery Comments Yes 11/19/2020 Based on last menstr ual period of 02/13/2020 (Exact Date) documented as of this encounter (statuses as of 04/13/2020) Resolved Problems Problem Noted Date Resolved Date Visit for annual health examination 05/26/201903/09 Diarrhea, unspecified type 05/26/2019 03/23/2020 Non-recurrent acute suppurative otitis media of right ear 03/23/2020 without spontaneous rupture of tympanic membrane Acute otitis externa of right ear, unspecified type 05/08/20 19 03/23/2020 Right ear pain 05/08/2019 03/23/2020 Left knee pain 05/07/2015 02/15/2016 documented as of this encounter (statuses as of 04/13/2020) Immunizations Name Administration Dates Next Due DTAP [...] in contact with No / Unsure 04/05/2020 12:59 PM CDT someone who was confirmed or suspected to have Coronavirus / COVID-19? documented as of this encounter Last Filed Vital Signs Not on filedocumented in this encounter Miscellaneous Notes Telephone Encounter - Ce Soto RN - 04/13/2020 9:37 AM CDTPer Joan Crow PA-C, ok for patient to stop antibiotics due to unremarkable urine culture. Patient denies UTI s/s, on c/o nausea that started with antibiotics. Patient verbalized understanding andagrees to plan of care. Ce Soto RN 04/13/2020 9:41 AM Telephone Encounter - Carrie Barrientos - 04/13/2020 9:02 AM CDTPatient is calling stating that she started taking her Nitrofurantoin&Nit. Macrocryst (MACROBID)100 mg capsule Sunday, but is stating that she started vomiting yesterday. Patient is requesting acall back. documented in this encounter Plan of Treatment Date Type Specialty Care Team Description 05/10/2020 Routine Obstetrics & Acevedo, Annetta Clay MD Visit Gynecology [address] [place] [address] DR. Mejia [place], [place] [address] [phone] Health Maintenance Due Date Last Done Comments [...] ype Group Dates BCBS OF [place] [id number] 2019-Prese [phone] [address] PPO/POS [place] - OUT OF STATE nt [phone] [id number] [place] [address] [facility] MEDICAID OF [id number] 2020-Prese [phone] [address] Me dicaid [place] nt 00 2004 [place] [address] documented as of this encounter
--- OUTSIDE RECORDS SUMMARY | 2020-06-02 15:55 | XMS REPORT | Summary of Care ---
:1995 Author Organization [facility] Address [address] [place] [address] Care Team Providers Name Role Phone MD Bello Primary Care Provider Encounter Details Date Type Department Care Team Description 03/31/2020 Orders Only [facility] Doctor Unassigned, No [address] [facility] [place] [address] [address] [place] [id number] Allergies Active Allergy Reactions Severity Noted Date Comments Penicillins Rash 05/07/2015 documented as of this encounter (statuses as of 04/12/2020) Medications Medication Sig Dispensed Refills Start Date End Date Status proMETHazine 25 mg Take 1 tablet by 12 tablet 0 03/16/2018 Active tablet mouth every 6 (six) hours as needed for Nausea and Vomiting (N/V). cetirizine (ZYRTEC) 10 Take 1 tablet by 10 tablet 0 05/26/2019 Active mg tabletIndications: mouth daily. Allergic rhinitis, unspecified seasonality, unspecified trigger fluticasone propionate Use 1 [place] in 16 g 0 05/26/2019 Active (FLONASE [...] as of this encounter (statuses as of 04/12/2020) Active Problems Problem Noted Date Threatened miscarriage in early 04/05/2020 Subchorionic hematoma in first trimester, single or un specified fetus 04/05/2020 Obesity (BMI 30-39.9) 03/23/2020 Allergic rhinitis, unspecified seasonality, unspecifie d trigger 05/26/2019 Need for influenza vaccination 05/26/2019 Estimated Date of Delivery Comments Yes 11/19/2020 Based on last menstr ual period of 02/13/2020 (Exact Date) documented as of this encounter (statuses as of 04/12/2020) Resolved Problems Problem Noted Date Resolved Date Visit for annual health examination 05/26/201903/09 Diarrhea, unspecified type 05/26/2019 03/23/2020 Non-recurrent acute suppurative otitis media of right ear 03/23/2020 without spontaneous rupture of tympanic membrane Acute otitis externa of right ear, unspecified type 05/08/20 19 03/23/2020 Right ear pain 05/08/2019 03/23/2020 Left knee pain 05/07/2015 02/15/2016 documented as of this encounter (statuses as of 04/12/2020) Immunizations Name Administration Dates Next Due DTAP [...] & Acevedo, Annetta Clay MD Visit Gynecology [address] [place] [address] DR. Mejia [place] 020535 15 [phone] Health Maintenance Due Date Last Done Comments [...] Name Priority Date/Time Associated Diagnosis Comme nts INSURANCE CORRESPONDENCE Routine 03/31/2020 12:01 AM CDT documented in this encounter Results Not on filedocumented in this encounter Insurance Payer Benefit Plan / Subscriber ID Effective Phone Address T ype Group Dates BCBS OF [place] [id number] 2019-Prese [phone] [address] PPO/POS [place] - OUT OF STATE nt 87 [id number] [place] [address] [facility] MEDICAID OF [id number] 2020-Prese [phone] [address] Me dicaid [place] nt 00 [id number] [place] [address] documented as of this encounter
--- OUTSIDE RECORDS SUMMARY | 2020-06-02 15:55 | XMS REPORT | Summary of Care ---
:1995 Author Organization [facility] - [facility] Address [address] [place] [id number] Care Team Providers Name Role Phone MD Bello Primary Care Provider Reason for Visit Reason Comments New Medication Encounter Details Date Type Department Care Team Description 05/03/2020 Case Management [facility] N e[facility]- [address], [address] [place] [address] [facility] [address] [place] [address] [phone] Allergies Active Allergy Reactions Severity Noted Date Comments Penicillins Rash 05/07/2015 documented as of this encounter (statuses as of 05/03/2020) Medications Medication Sig Dispensed Refills Start Date End Date Status proMETHazine 25 mg Take 1 tablet by 12 tablet 0 03/16/2018 Active tablet mouth every 6 (six) hours as needed for Nausea and Vomiting (N/V). cetirizine (ZYRTEC) 10 Take 1 tablet by 10 tablet 0 05/26/2019 Active mg tabletIndications: mouth daily. Allergic rhinitis, unspecified seasonality, unspecified trigger fluticasone propionate Use 1 [place] in 16 g 0 05/26/2019 Active (FLONASE [...] Urinary tract infection with hematuria, site unspecified metroNIDAZOLE 500 mg Take 1 tablet by 14 tablet 0 05/03/2020 Active tabletIndications: BV mouth every 12 (bacterial vaginosis) (twelve) hours. documented as of this encounter (statuses as of 05/03/2020) Active Problems Problem Noted Date Threatened miscarriage in early 04/05/2020 Subchorionic hematoma in first trimester, single or un specified fetus 04/05/2020 Obesity (BMI 30-39.9) 03/23/2020 Allergic rhinitis, unspecified seasonality, unspecifie d trigger 05/26/2019 Need for influenza vaccination 05/26/2019 Estimated Date of Delivery Comments Yes 11/19/2020 Based on last menstr ual period of 02/13/2020 (Exact Date) documented as of this encounter (statuses as of 05/03/2020) Resolved Problems Problem Noted Date Resolved Date Visit for annual health examination 05/26/201903/09 Diarrhea, unspecified type 05/26/2019 03/23/2020 Non-recurrent acute suppurative otitis media of right ear 03/23/2020 without spontaneous rupture of tympanic membrane Acute otitis externa of right ear, unspecified type 05/08/20 19 03/23/2020 Right ear pain 05/08/2019 03/23/2020 Left knee pain 05/07/2015 02/15/2016 documented as of this encounter (statuses as of 05/03/2020) Immunizations Name Administration Dates Next Due DTAP [...] & Acevedo, Annetta Clay MD Visit Gynecology [address] [place] [address] DR. Lewis, [facility]5 15 [phone] Health Maintenance Due Date Last Done Comments MENINGOCOCCAL B VACCINES (2 12/28/2015 11/30/2015 of 2 - Risk Bexsero 2-dose series) HPV VACCINES (2 - 3-dose 03/14/2016 02/15/2016 series) Depression Screening 05/26/2020 05/26/2019 DTaP,Tdap,and Td Vaccines (7 02/22/2021 02/22/2011, 002, - Td) 09/20/1998, Additional history exists CHLAMYDIA SCREENING 04/27/2021 04/27/2020, 03/23/2020, 06/07/2018 PAP SMEAR 03/23/2023 03/23/2020 VARICELLA VACCINES Completed 02/22/2011, 09/20/1998 MENINGOCOCCAL VACCINE Aged Out 11/30/2015, 12/01/2008 No longer eligible based on patient 's age to complete this topic INFLUENZA VACCINE Completed 04/27/2020, 05/26/2019, 10/07/2001 PNEUMOCOCCAL 0-64 YEARS Aged Out No longe r eligible COMBINED SERIES based on patient 's age to complete this topic documented as of this encounter Results Not on filedocumented in this encounter Visit Diagnoses Diagnosis BV (bacterial vaginosis) - Primary Vaginitis and vulvovaginitis, unspecifie d documented in this encounter Insurance Payer Benefit Plan / Subscriber ID Effective Phone Address T ype Group Dates [employer] [place] [id number] 2019-Prese [phone] PPO/POS [place] - OUT OF STATE nt [id number] [place] [address] [facility] MEDICAID OF [id number] 2020-Prese [phone] [address] dicaid [place] nt [address] [place] [address] documented as of this encounter
--- OUTSIDE RECORDS SUMMARY | 2020-06-02 15:55 | XMS REPORT | Summary of Care ---
:1995 Author Organization [facility] Address [address] [place] [id number] Care Team Providers Name Role Phone MD Bello Primary Care Provider Reason for Visit Reason Comments ROUTINE VISIT Encounter Details Date Type Department Care Team Description 04/05/2020 Routine [facility] AcevedoAnnetta am, MD Threatened miscarriage in early pregnanc y (Primary Dx); Visit Healthcare- [address] [place] [address] 7 weeks ge station of ; [place] Subchorionic hematoma in first trimester , single or unspecified fetus [address] [place] [address], [address] [place] [id number] [phone] Allergies Active Allergy Reactions Severity Noted Date Comments Penicillins Rash 05/07/2015 documented as of this encounter (statuses as of 04/05/2020) Medications Medication Sig Dispensed Refills Start Date End Date Status proMETHazine 25 mg Take 1 tablet 12 tablet 0 03/16/2018 Active tablet by mouth every 6 (six) hours as needed for Nausea and Vomiting (N/V). cetirizine (ZYRTEC) Take 1 tablet 10 tablet 0 05/26/2019 Active 10 mg by mouth tabletIndications: daily. Allergic rhinitis, unspecified seasonality, unspecified trigger fluticasone Use 1 [place] 16 g 0 05/26/2019 Activ e propionate (FLONASE in each ALLERGY RELIEF) 50 nostril mcg/actuation nasal daily. sprayIndications: Allergic rhinitis, unspecified seasonality, unspecified trigger 25/iron Take by 0 Act hussein fum/folic/dha mouth. (-1 ORAL) doxylamine-pyridoxi Take 1 tablet 120 tablet 3 03/23/2020 Active ne, vit B6, by mouth (DICLEGIS) 10-10 mg SEE-INSTRUCTI per ONS. tabletIndications: Positive test, Vomiting or nausea of ketoconazole 2 % Apply to 15 g 1 03/23/2020 Ac tive creamIndications: area(s) Candidiasis of skin daily. and nails triamcinolone Apply to 15 g 1 03/23/2020 Activ e acetonide 0.1 % area(s) 2 creamIndications: (two) times Candidiasis of skin daily. and nails metoclopramide HCl Take 1 tablet 30 tablet 1 04/02/2020 Active 10 mg tablet by mouth every 6 (six) hours as needed for Nausea and Vomiting (N/V) (alternate with unisom/vitami n B6). Nitrofurantoin&Nit. Take 1 10 capsule 0 04/05/2020 Active Macrocryst capsule by (MACROBID) 100 mg mouth 2 (two) capsuleIndications: times daily. Vaginal spotting, Threatened miscarriage, Urinary tract infection with hematuria, site unspecified azithromycin Take 1 tablet 1 tablet 0 10/18/2018 04/05/20 Di scontinued (ZITHROMAX Z-RUT) by mouth 20 (P atient 250 mg SEE-INSTRUCTI Report ed) tabletIndications: ONS. Take 500 Streptococcal sore mg day 1, throat then 250 mg days 2 to 5. documented as of this encounter (statuses as of 04/05/2020) Active Problems Problem Noted Date Threatened miscarriage [...] Sign Reading Time Taken Comments Blood Pressure 137/84 04/05/2020 1:24 PM CDT Pulse 75 04/05/2020 1:24 PM CDT Temperature 36.7 C (98.1 F) 04/05/2020 1:24 PM CDT Respiratory Rate 18 04/05/2020 1:24 PM CDT Oxygen Saturation - - Inhaled Oxygen Concentration - - Weight 91.8 kg (202 lb 6.4 oz) 04/05/2020 1:24 PM CDT Height 165.1 cm (5' 5") 04/05/2020 1:24 PM CDT Body Mass Index 33.68 04/05/2020 1:24 PM CDT documented in this encounter Patient Instructions Patient InstructionsCe Soto RN - 04/05/2020 1:15 PM CDT Patient Education Tailor Sit, Trunk Turn for Back Pain During Before trying these exercises, talk to your healthcare provider to make sure they are safe for you. Ask your healthcare provider how many times to do each exercise. Tailor sit Trunk turns Tailor sit This exercise makes your thigh, pelvic, and hip muscles more flexible. 1. Sit on the floor with the soles of your feet together. Your back should be straight. 2. Gently lean forward until you feel a mild stretch inyour hip and thigh muscles. Your back should remain straight. Dont push down on your legs with your hands. 3. Hold and count to 5, then relax. Trunk turns This helps make your trunk (from your shoulders to your hips) more flexible. 1. Sit on the floor with your legs crossed. Your back should be straight. 2. Put your left hand on your right knee. Rest your right hand on the floor to support yourself and help you balance. 3. Slowly twist right. To do this, turn your head, shoulders, and chest as far right as you comfortably can. Keep your hips, knees, and feet in place. 4. Hold for 5 counts. Then change sides and slowly twist left. [employer] last reviewed this educational content on 08/09/201719996804-0502 [employer]. [address] [place] [address], [place] [address]. All rights reserved. This information is not intended as a substitute for professional medical care. Always follow your healthcare professional's instructions. Patient Education Relieving Back Pain During : Wall Stretch, Body Bend Before trying these exercises, talk to your healthcare provider to make sure they are safe for you. Ask your healthcare provider how many times to do each exercise. Wall stretch Body bend Wall stretch This strengthens and loosens the muscles in your upper back: 1. Lean against a wall with a firm pillow or rolled towel under your shoulder blades. Your feet should be about 12 inches from the wall and shoulder-width apart. Point your chin down. 2. Breathe in. Push your shoulders, neck, and head against the wall. You will feel a stretch in yourshoulders. 3. Hold for 5 counts. Then breathe out, and relax your shoulders and neck. Body bend This strengthens your back and buttocks muscles: 1. Stand with your legs shoulder-width apart. Put your hands on your upper thighs and bend your knees slightly. 2. Slowly bend forward at the hips. Push your hips back and keep your shoulders up. Make sure your back is straight. Youll feel a stretch in your upper thighs. Youll also feel your back muscles holding you in position. 3. Hold for 5 counts, then straighten. [employer] last reviewed this educational content on 08/09/201719994397-8272 [employer]. [address] [place] [address]. All rights reserved. This information is not intended as a substitute for professional medical care. Always follow your healthcare professional's instructions. Patient Education Back Pain During : Moving Safely Learning the proper ways to bend, lift, and carry objects may help relieve back strain. It will alsohelp you protect your back after your baby is born. Remember, if youre having trouble protecting your back, its OK to ask the people around you for help! Bending Lifting Carrying Bending To protect your back as you bend: Put 1 foot slightly in front of the other. Bend at the knees and hips, pushing your hips backward. Keep your upper body as straight as you can. Face forward. Try to keep your ears, shoulders, and hips in a line. Dont hold your breath. Lifting To lift a large object or a child: Get as close to the load as you can. Face forward, to help keep your ears and shoulders aligned. Use the muscles in your thighs and buttocks to stand up. As you lift, tighten your stomach and pelvic floor muscles. Dont hold your breath. Avoid twisting. Carrying To carry a load safely: Carry an object or child in front of you, not resting on your hip. Break up your load into 2 smaller bags, if you can. Carry 1 bag on each side to maintain balance.Or, break the load into smaller ones and take more trips. Try to tighten your stomach and pelvic floormuscles as you walk. This helps take weight off your back. [employer] last reviewed this educational content on 08/09/201719992296-6999 [employer]. [address] [place] [address], [place] [address]. All rights reserved. This information is not intended as a substitute for professional medical care. Always follow your healthcare professional's instructions. Patient Education Back Pain During : Positioning Yourself When standing, resting a foot on a low block can ease back pain. You likely position yourself differently now than you did before you were . Did you know that standing, sitting, or lying in certain ways can lead to back pain? To ease pain, use positions thatsupport your body comfortably. Tips for good posture Using good posture means holding yourself so that your spine is aligned and your muscles can work without strain. To use good posture: Raise your chest and head. Try to keep your ears lined up over your shoulders. Use your stomach muscles to pull in your stomach. This reduces the amount of weight your back must support. Keep your pelvis level. Think of your pelvis as a bowl of water that will spill if it tips too far forward or backward. Standing If you must stand for long periods, try to change positions every 15 minutes. This gives your muscles a break. When standing, also: Keep your legs slightly apart. This helps you balance your weight. Rest one foot on a book, ledge, or low stool. Every few minutes, switch legs. Wear comfortable shoes with padded soles and arch support, like athletic shoes. Sitting When sitting in a chair or car, make sure your spines lumbar curve is supported. Use a chair withlumbar support built in, or put a firm pillow against your lower back. Also try the following: Sit with your knees slightly lower than your hips. Dont cross your legs. Take deep breaths often. This helps keep your spine and stomach in the best position. Vary your activity each hour. For instance, get up from your desk and take a 5-minute walk aroundthe office. Lying down To lie safely and comfortably: Lie on your side with your knees slightly bent. This takes pressure offyour uterus and improvesblood flow to your baby. Place pillows under your abdomen and between your knees. To get out of bed, roll onto your side. Use your arms to push yourself into a seated position. Scoot to the edge of the bed and place your feet on the floor. Lean forward, then use your leg muscles to stand. Consider investing in a firm mattress. Lifting Tip to safely lift: Do not bend over from the waist to pick things upsquat down, bend your knees, and keep your back straight. [employer] last reviewed this educational content on 08/09/2017 [employer]. [address] [place] [address]. All rights reserved. This information is not intended as a substitute for professional medical care. Always follow your healthcare professional's instructions. Patient Education Video [employer]Sheets Common Changes During Certain changes and discomforts occur during and are perfectly normal. Some of these changes include backache, frequent urination, and constipation. This video describes typical changes, how to safely relieve your discomfort, and what circumstances require a visit to your doctor. To watch the video: Scan the QR code Using your mobile device, scan the following code: OR Go to the website: www.[employer] Enter the prescription code: [employer]. [address] [place] [address]. All rights reserved. This information is not intended as a substitute for professional medical care. Always follow your healthcare professional's instructions. Patient Education Bleeding During Early If youve had bleeding early in your , youre not alone. Many other women haveearly bleeding, too. And in most cases, nothing is wrong. But your healthcare provider still needs to know about it. They may want to do tests to find out why youre bleeding. Call your provider if you see bleeding during . Tell your provider if your blood is Rh negative. Then they can figure out if you need anti-D immune globulin treatment. What causes early bleeding? The cause of bleeding early in is often unknown. But many factors early on in may lead to light bleeding (called spotting) or heavier bleeding. These include: Having sex When the embryo implants on the uterine wall Bleeding between the sac membrane and the uterus (subchorionic bleeding) loss (miscarriage) The embryo implants outside of the uterus (ectopic ) If you see spotting Light bleeding is the most common type of bleeding in early . If you see it, call your healthcare provider. Chances are, they will tell you that you can care for yourself at home. If tests are needed Depending on how much you bleed, your healthcare provider may ask you to come in for some tests. A pelvic exam, for instance, can help see how far along your is. You also may have an ultrasound or a Doppler test. These imaging tests use sound waves to check the health of your baby. The ultrasound may be done on your belly or inside your vagina. You may also need a special blood test. This test compares your hormone levels in blood samples taken 2 days apart. The results can help your provider learn more about the implantation of the embryo. Your blood type will also need to be checked to assess if you will need to be treated for Rh sensitization. Warning signs If your bleeding doesnt stop or if you have any of the following, get medical care right away: Soaking a sanitary pad each hour Bleeding like youre having a period Cramping or severe belly pain Feeling dizzy or faint Tissue passing through your vagina Bleeding at any time after the first trimester Questions you may be asked Bleeding early in isn't normal. But it is common. If youve seen any bleeding, you may be concerned. But keep in mind that bleeding alone doesnt mean something is wrong. Just be sure to call your healthcare provider right away. They may ask you questions like these to help find the cause of your bleeding: When did your bleeding start? Is your bleeding very light or is it like a period? Is the blood bright red or brownish? Have you had sex recently? Have you had pain or cramping? Have you felt dizzy or faint? Monitoring your Bleeding will often stop as quickly as it began. Your may go on a normal path again. You may need to make a few extra visits. But you and your baby will most likely be fine. [employer] last reviewed this educational content on 08/09/201919990712-5321 [employer]. [address] [place] [address], [place] [address]. All rights reserved. This information is not intended as a substitute for professional medical care. Always follow your healthcare professional's instructions. Patient Education Comfort Tips During Talk with yourhealthcare provider before using pain-relieving medicine at any time during your . First trimester tips Nausea Get up slowly. Eat a few unsalted crackers before you get out of bed. Avoid smells that bother you. Eat smallbland low fat, light high-protein meals at frequent intervals. Sip on water, weaktea, or clear soft drinks, like ira lincoln.Eat ice chips. Fatigue Take catnaps when you can. Get regular exercise. Accept help from others. Practice good sleep habits, like going to bed and getting up at the same time each day. Use your bed only for sleep and sex. Mood swings Talk about your feelings with others, including other mothers. Limit sugar, chocolate, and caffeine. Eat a healthy diet. Dont skip meals. Get regular exercise. Headaches Get fresh air and exercise. Relax and get enough rest. Check with your healthcare provider before taking any pain medicines. Second trimester tips Here are some suggestions to help you cope: To limit ankle swelling, sit with your feet raised or wear support hose. If you have pain in your groin and stomach(round ligament pain), avoid sudden twisting movements. For leg cramps, flexing your foot often brings immediate relief. You also may try massaging your calf in long, downward strokes, or stretching your legs before going to bed. Get enough exercise and wear shoes with flexible soles. Third trimester tips Reducing heartburn Eat small, light meals throughout the day rather than 3 large ones. Sleep with your upper body raised 6 inches. Dont lie down until 2 hours after you eat. Don't eat greasy, fried, or spicy foods. Avoid citrus fruits and juices. Treating constipation Eat foods high in fiber (whole-grain foods, fresh fruit and vegetables). Drink plenty of water. Get regular exercise. Discuss other medicines (like docusate and psyllium) with your healthcare provider. Taking care of your breasts Avoid using harsh soaps or alcohol, which can cause excessive dryness. Wear nursing bras. They provide more support than regular bras and can be used after ifyou breastfeed. Getting a good nights sleep Take a warm shower before bed. Sleep on a firm mattress. Lie on your side with 1 leg crossed over the other. Use pillows to support arms, legs, and belly. [employer] last reviewed this educational content on 04/08/201719992924-1420 [employer]. [address] [place] [address]. All rights reserved. This information is not [...] increases the risk of stillbirthor having a bbj-mvldj-fnlxxu baby. If you smoke, quit now. Alcohol [...] and see whats best for you both. [employer] last reviewed this educational content on 04/08/201719992436-8044 [employer]. [address] [place] [address]. All rights reserved. This information is not [...] ends, your baby is about 3-inches long. [employer] reviewed this educational content on 04/08/2017 [employer]. [address] [place] [address]. All rights reserved. This information is not intended as a substitute for professional medical care. Always follow your healthcare professional's instructions. documented in this encounter Progress Notes Annetta Acevedo MD - 04/05/2020 1:15 PM CDT ROUTINE VISIT 04/05/2020 1:31 PM SUBJECTIVE Fernanda Davis is a 24 year old at 7w3d who presents for routine visit. Shecomplains of vaginal spotting that has resolved after she was seen at [facility] ER today; + cramping. OBJECTIVE BP 137/84 (BP Location: Left arm, Patient Position: Sitting, BP CUFF SIZE: Adult Medium) | Pulse 75 | Temp 36.7 C (98.1 F) (Oral) | Resp 18 | Ht 5' 5" (1.651 m) | Wt 202 lb 6.4 oz (91.8 kg) |LMP 02/13/2020 (Exact Date) | BMI 33.68 kg/m FHT: 118 Physical Exam: Gen: A&Ox3, NAD CV: RRR, no m/g/r Pulm: CTAB, no w/r/r Abd: Soft, NTTP, ND, no rebound or guarding Ext: No calf tenderness ASSESSMENT: Fernanda Davis is a 24 year old at 7w3d who presents for routine visit. Plan: See OB Summary Scribe's Attestation IAzam am scribing for, and in the presence of, Annetta Acevedo MD who performed the services described here-in. Azam Chavez, April 05, 2020, 1:31 PM Physician's Attestation I have seen and examined the patient and agreed with the note above Annetta Acevedo MD 04/05/2020 3:04 PM documented in this encounter Miscellaneous Notes OB Summary Note - Azam Chavez - 04/05/2020 1:15 PM CDT Age: [age] year old GA: 7w3d d/u (6) Threatened miscarriages - Patient came in through the ED today 04/05/2020 due to vaginal spotting. USG in ER showed single live IUP measured 6 6/7 weeks, consistent with LMP. Will date by LMP unless clinically indicated otherwise. USG also showed subchorionic hematoma - Pelvic rest, discussed risks of miscarriages. - Blood type O+ UTI - diagnosed at ER visit today - advised completing abx Body mass index is 33.68 kg/m. New OB labs ordered. Discussed do's and don'ts of , safe foods, safe medications. Reviewed Zika virus precautions. I discussed the call schedule and that I might not be the physician delivering her. Expectations for weight gain this include 11-20 pounds. Encouraged to call if have any additional questions or concerns. Discussed aneuploidy and carrier screening; patient will check with insurance and let us know at next visit. Discussed with patient that we recommend covid testing to be done ~ one day prior to scheduled induction/ and she can have one HEALTHY support with her during her delivery if she does not haveCOVID. Also discussed that she and support person need to wear mask the entire inpatient stay. Allquestions were answered. RTC in 5 wks for PN Scribe's Attestation IAzam , am scribing for, and in the presence of, Annetta Acevedo MD who performed the services described here-in. Aazm Chavez, April 05, 2020, 1:27 PM Physician's Attestation I have seen and examined the patient and agreed with the note above Annetta Acevedo MD 04/05/2020 3:03 PM documented in this encounter Plan of Treatment Date Type Specialty Care Team Description 05/10/2020 Routine Obstetrics & Annetta Acevedo MD Visit Gynecology [address] [place] [address] [address]. [place], [place] [address] [phone] Health Maintenance Due Date Last Done Comments [...] Name Priority Date/Time Associated Diagnosis Comme nts POCT URINALYSIS W/O Routine 04/05/2020 7 weeks gestation of Results for this SPECIFIC GRAVITY procedure a re in the results section . documented in this encounter Results POCT URINALYSIS W/O SPECIFIC GRAVITY (04/05/2020) Pathologist Sig nature POCT PH U n/a 5 - 8 mg/dl POCT U LEUK EST n/a Negative - Negative POCT U NIT n/a Negative - Negative POCT U PROT neg Negative - Negative POCT U GLU neg Negative - Negative POCT U KETONE n/a Negative - Negative POCT U BLD n/a Negative - Negative Specimen Urine - URINE, CLEAN CATCH documented in this encounter Visit Diagnoses Diagnosis Threatened miscarriage in early pregnanc y - Primary Threatened , unspecified as to e pisode of care 7 weeks gestation of Subchorionic hematoma in first trimester , single or unspecified fetus documented in this encounter Insurance Payer Benefit Plan / Subscriber ID Effective Phone Address T ype Group Dates [employer] [place] [employer] [place] [id number] 2019-Prese [phone] PPO/POS [place] - OUT OF STATE [id number] [place] [address] [employer] MEDICAID OF [id number] 2020-Prese [phone] [address] dicaid [place] nt [address] [place] [address] documented as of this encounter
--- OUTSIDE RECORDS SUMMARY | 2020-06-02 15:55 | XMS REPORT | Summary of Care ---
:[address] [facility] - [facility] Address [address] [place] [address] Care Team Providers Name Role Phone MD Bello Primary Care Provider Reason for Visit Reason Comments Rx Concern/Question Encounter Details Date Type Department Care Team Description 05/05/2020 Telephone [facility] Women's AcevedoAnnetta MD Rx Concern/Question Healthcare- [address] 146 [facility] [address], [address] [place] [address] [place] [address] [phone] Allergies Active Allergy Reactions Severity Noted Date Comments Penicillins Rash 05/07/2015 documented as of this encounter (statuses as of 05/05/2020) Medications Medication Sig Dispensed Refills Start Date End Date Status proMETHazine 25 mg Take 1 tablet by 12 tablet 0 03/16/2018 Active tablet mouth every 6 (six) hours as needed for Nausea and Vomiting (N/V). cetirizine (ZYRTEC) Take 1 tablet by 10 tablet 0 05/26/2019 Active 10 mg mouth daily. tabletIndications: Allergic rhinitis, unspecified seasonality, unspecified trigger fluticasone Use 1 Cardinal in 16 g 0 05/26/2019 Ac tive propionate (FLONASE each nostril ALLERGY RELIEF) 50 daily. mcg/actuation nasal sprayIndications: Allergic rhinitis, unspecified seasonality, unspecified trigger 25/iron Take by mouth. 0 Active fum/folic/dha (-1 ORAL) doxylamine-pyridoxine Take 1 tablet by 120 tablet 3 03/23/2020 Active , vit B6, (DICLEGIS) mouth 10-10 mg per SEE-INSTRUCTIONS. tabletIndications: Positive test, Vomiting or nausea of ketoconazole 2 % Apply to area(s) 15 g 1 03/23/2020 Active creamIndications: daily. Candidiasis of skin and nails triamcinolone Apply to area(s) 15 g 1 03/23/2020 Active acetonide 0.1 % 2 (two) times creamIndications: daily. Candidiasis of skin and nails metoclopramide HCl 10 Take 1 tablet by 30 tablet 1 04/02/2020 Active mg tablet mouth every 6 (six) hours as needed for Nausea and Vomiting (N/V) (alternate with unisom/vitamin B6). Nitrofurantoin&Nit. Take 1 capsule by 10 capsule 0 04/05/2020 Active Macrocryst (MACROBID) mouth 2 (two) 100 mg times daily. capsuleIndications: Vaginal spotting, Threatened miscarriage, Urinary tract infection with hematuria, site unspecified metroNIDAZOLE 500 mg Take 1 tablet by 14 tablet 0 05/03/2020 Active tabletIndications: BV mouth every 12 (bacterial vaginosis) (twelve) hours. metroNIDAZOLE 0.75 % Insert 1 5 Each 0 05/05/2020 05/10/20 20 Active vaginal Applicator into gelIndications: BV vagina at bedtime (bacterial vaginosis) for 5 days. Insertar 1 aplicador en la vagina a la hora de dormir por 5 epstein. documented as of this encounter (statuses as of 05/05/2020) Active Problems Problem Noted Date Threatened miscarriage in early 04/05/2020 Subchorionic hematoma in first trimester, single or un specified fetus 04/05/2020 Obesity (BMI 30-39.9) 03/23/2020 Allergic rhinitis, unspecified seasonality, unspecifie d trigger 05/26/2019 Need for influenza vaccination 05/26/2019 Estimated Date of Delivery Comments Yes 11/19/2020 Based on last menstr ual period of 02/13/2020 (Exact Date) documented as of this encounter (statuses as of 05/05/2020) Resolved Problems Problem Noted Date Resolved Date Visit for annual health examination 05/26/201903/09 Diarrhea, unspecified type 05/26/2019 03/23/2020 Non-recurrent acute suppurative otitis media of right ear 03/23/2020 without spontaneous rupture of tympanic membrane Acute otitis externa of right ear, unspecified type 05/08/20 19 03/23/2020 Right ear pain 05/08/2019 03/23/2020 Left knee pain 05/07/2015 02/15/2016 documented as of this encounter (statuses as of 05/05/2020) Immunizations Name Administration Dates Next Due DTAP [...] this encounter Miscellaneous Notes Telephone Encounter - Keiry Castro MA - 05/05/2020 10:11 AM CDTSpoke to patient, verified name and . Patient states she has been taking Flagyl as prescribed for3 days, patient feels strong cramping 40minutes - 1 hour after taking medication, the pain last for 1 hour. Patient states that she has been taking medication with plenty of water and food. Per ,patient to discontinue medication and prescribe Metrogel X5 days. Prescription sent to pharmacy, patient verbalized understanding. Keiry Castro MA 05/05/2020 10:17 AM elephone Encounter - Nadira Garrett - 05/05/2020 8:24 AM CDTPt stating she is 2 mth and started taking metroNIDAZOLE 500 mg tablet and causing her stomach pain. Per patient she is not currently hurting. documented in this encounter Plan of Treatment Date Type Specialty Care Team Description 05/10/2020 Routine Obstetrics & Curtis, Annetta Clay MD Visit Gynecology [address] [place] [address] DR. [place]jia [place] [address] [phone] Health Maintenance Due Date Last Done Comments [...] Group Dates [employer] [place] [employer] [place] [id number] 2019-Prese [phone] [address] PPO/POS [place] - OUT OF STATE [id number] [phone] [id number] [place] [address] [facility] MEDICAID OF [id number] 2020-Prese [phone] [address] Me dicaid [place] nt 00 [address] [place] [address] documented as of this encounter
--- OUTSIDE RECORDS SUMMARY | 2020-06-02 15:56 | XMS REPORT | Summary of Care ---
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 Visit [facility] Annetta Acevedo MD [address] [place] [address] [address] [place] [address] Missed menses; Professional Office 2, Adc Lab Positive test Building Phlebotomy Lab Professional Office Building [address] [place] [address] , [address] [place] [address] Allergies Active Allergy Reactions Severity Noted Date Comments Penicillins Rash 05/07/2015 documented as of this encounter (statuses as of 05/10/2020) Medications Medication Sig Dispensed Refills Start Date End Date Status proMETHazine 25 mg Take 1 tablet by 12 tablet 0 03/16/2018 Active tablet mouth every 6 (six) hours as needed for Nausea and Vomiting (N/V). cetirizine (ZYRTEC) Take 1 tablet by 10 tablet 0 05/26/2019 Active 10 mg mouth daily. tabletIndications: Allergic rhinitis, unspecified seasonality, unspecified trigger fluticasone Use 1 [place] in 16 g 0 05/26/2019 Ac tive [...] la hora de dormir por 5 epstein. cephALEXin (KEFLEX) Take 1 capsule by 20 capsule 0 05/07/2020 05/12/2020 Active 500 mg mouth 4 (four) capsuleIndications: times daily for 5 Abdominal pain days. affecting , Bacteriuria documented as of this encounter (statuses as of 05/10/2020) Active Problems Problem Noted Date Threatened miscarriage in early 04/05/2020 Subchorionic hematoma in first trimester, single or un specified fetus 04/05/2020 Obesity (BMI 30-39.9) 03/23/2020 Allergic rhinitis, unspecified seasonality, unspecifie d trigger 05/26/2019 Need for influenza vaccination 05/26/2019 Estimated Date of Delivery Comments Yes 11/19/2020 Based on last menstr ual period of 02/13/2020 (Exact Date) documented as of this encounter (statuses as of 05/10/2020) Resolved Problems Problem Noted Date Resolved Date Visit for annual health examination 05/26/201903/09 Diarrhea, unspecified type 05/26/2019 03/23/2020 Non-recurrent acute suppurative otitis media of right ear 03/23/2020 without spontaneous rupture of tympanic membrane Acute otitis externa of right ear, unspecified type 05/08/20 19 03/23/2020 Right ear pain 05/08/2019 03/23/2020 Left knee pain 05/07/2015 02/15/2016 documented as of this encounter (statuses as of 05/10/2020) Immunizations Name Administration Dates Next Due DTAP [...] been in contact with No / Unsure 05/10/2020 8:32 AM CONSERVATION ENFORCEMENT OFFICER someone who was confirmed or suspected to have Coronavirus / COVID-19? documented as of this encounter Last Filed Vital Signs Not on filedocumented in this encounter Plan of Treatment Date Type Specialty Care Team Description 05/12/2020 Yarn Texture Machine Operator Visit Phlebotomy 2, Adc Lab 06/08/2020 Routine Visit Obstetrics & Joan Crow, Gynecology [facility] [address] [place] [phone] Name Type Priority Associated Diagnoses Date/Ti me ADC OR DURAN ONLY - LAB Routine Missed men ses 05/10/2020 10:26 AM CONSERVATION ENFORCEMENT OFFICER RPR Positive test RUBELLA SCREEN IGG LAB Routine Missed menses 05/10/2020 10:51 AM CONSERVATION ENFORCEMENT OFFICER Positive test URINE CULTURE LAB Routine Missed menses 05/10/2020 10:51 AM CONSERVATION ENFORCEMENT OFFICER Positive test VZV ANTIBODY SCREEN LAB Routine Missed mense s 05/10/2020 10:51 AM CONSERVATION ENFORCEMENT OFFICER Positive test WORKUP, BLOOD LAB Routine Missed me nses 05/10/2020 10:26 AM CONSERVATION ENFORCEMENT OFFICER BANK Positive test Health Maintenance Due Date Last [...] Name Priority Date/Time Associated Diagnosis Comme nts CBC WITH DIFF Routine 05/10/2020 10:51 AM Missed mense s Results for this CONSERVATION ENFORCEMENT OFFICER Positive procedure are in test the results section. HIV 1/2 AG-AB WITH Routine 05/10/2020 10:26 AM Missed me nses Results for this REFLEX CONSERVATION ENFORCEMENT OFFICER Positive procedure are in test the results section. HB ABO GROUPING Routine 05/10/2020 10:26 AM Missed mense s CONSERVATION ENFORCEMENT OFFICER Positive test HCV ANTIBODY Routine 05/10/2020 10:26 AM Missed mense s Results for this CONSERVATION ENFORCEMENT OFFICER Positive procedure are in test the results section. HEPATITIS B SURFACE Routine 05/10/2020 10:26 AM Missed m enses Results for this ANTIGEN CONSERVATION ENFORCEMENT OFFICER Positive procedure are in test the results section. GLUCOSE 1 HOUR POST Routine 05/10/2020 10:26 AM Missed m enses Results for this PRANDIAL CONSERVATION ENFORCEMENT OFFICER Positive procedure are in test the results section. documented in this encounter Results CBC WITH DIFF (05/10/2020 10:51 AM CONSERVATION ENFORCEMENT OFFICER) Pathologist Sig nature WBC 10.24 4.30 - 11.10 [facility] 10*3/L [facility] RBC 4.64 3.93 - 5.25 [facility] 10*6/L [facility] HGB 13.7 11.6 - 15.0 [facility] g/dL [facility] HCT 40.7 35.7 - 45.2 % [facility] MCV 87.7 80.6 - 95.5 fL [facility] MCH 29.5 25.9 - 32.8 pg [facility] MCHC 33.7 31.6 - 35.1 [facility] g/dL [facility] RDW-SD 45.8 39.0 - 49.9 fL [facility] RDW-CV 14.5 12.0 - 15.5 % [facility] PLT 270 166 - 358 [facility] 10*3/L [facility] MPV 13.2 (H) 9.5 - 12.9 fL [facility] NRBC/100 WBC 0.0 0.0 - 10.0 /100 [facility] WBCs [facility] NRBC x10^3 <0.01 10*3/L [facility] GRAN MAT (NEUT) % 78.1 % [facility] IMM GRAN % 0.40 % [facility] LYMPH % 17.2 % [facility] MONO % 3.7 % [facility] EOS % 0.3 % [facility] BASO % 0.3 % [facility] GRAN MAT x10^3(ANC) 8.00 (H) 1.88 - 7.09 [facility] 10*3/uL HOSPITAL [facility] IMM GRAN x10^3 0.04 0.00 - 0.06 [facility] 10*3/uL [facility] LYMPH x10^3 1.76 1.32 - 3.29 [facility] 10*3/uL [facility] MONO x10^3 0.38 0.33 - 0.92 [facility] 10*3/uL HOS[facility]ITAL [facility] EOS x10^3 0.03 0.03 - 0.39 [facility] 10*3/uL [facility] BASO x10^3 0.03 0.01 - 0.07 [facility] 103/uL [facility] Specimen Blood Performing Organization Address City/[facility]/Zipcode Phone Number [facility] CLIA: [id number] [place] [address] [place] [address] HIV 1/2 AG-AB WITH REFLEX (05/10/2020 10:26 AM CONSERVATION ENFORCEMENT OFFICER) Pathologist Sig nature HIV 1/2 Ag-Ab with Negative Negative [facility] Reflex [facility] HIV Semi-quantitative 0.10 [facility] Specimen Blood Narrative Performed At Non-reactive for HIV-1 antigen and HIV-1/HIV-2 [facility] antibodies. No laboratory evidence of HIV infection. Repeat in 2-4 weeks if acute HIV infection is suspected. Performing Organization Address City/[facility]/Zipcode Phone Number [facility] CLIA: [id number] [place] [address] HEPATITIS B SURFACE ANTIGEN (05/10/2020 10:26 AM CONSERVATION ENFORCEMENT OFFICER) Pathologist Sig nature HBsAg Negative Negative [facility] HBsAg 0.10 [facility] Semi-Quantitative SERVICES Specimen Blood Performing Organization Address City/State/Zipcode Phone Number [facility] CLIA: [id number] [place] [address] [place] [address] HCV ANTIBODY (05/10/2020 10:26 AM CONSERVATION ENFORCEMENT OFFICER) Pathologist Sig nature HCV Ab Negative [facility] HCV Semi-Quantitative 0.01 [facility] Specimen Blood Performing Organization Address City/State/Zipcode Phone Number [facility] CLIA: [id number] [place] [address] [place] [address] Blvd GLUCOSE 1 HOUR POST PRANDIAL (05/10/2020 10:26 AM CONSERVATION ENFORCEMENT OFFICER) Pathologist Sig nature GLUC 1 HR 165 120 - 170 mg/dL [facility] Specimen Blood Performing Organization Address City/[facility]/Zipcode Phone Number [facility] CLIA: [id number] [place] [address] documented in this encounter Visit Diagnoses Diagnosis Missed menses Absence of menstruation Positive test examination or test, positive result documented in this encounter Insurance Payer Benefit Plan / Subscriber ID Effective Phone Address T ype Group Dates [facility] [id number] 2019-Pres [phone] [address] PPO/POS - OUT OF STATE ent [id number] [place] [address] [facility] [id number] 2020-Pre [address] Med[employer] id HEALTH CHOICE HEALTH CHOICE sent [id number] - MANAGED MEDICAID [place]ICA[place] [id number] documented as of this encounter
--- OUTSIDE RECORDS SUMMARY | 2020-06-02 15:56 | XMS REPORT | Summary of Care ---
:1995 Author Organization [facility] Address [address] [place] [address] Care Team Providers Name Role Phone MD Bello Primary Care Provider Reason for Visit Reason Comments Abdominal Pain Auth/Cert Status Reason Specialty Diagnoses / Referred By Referred To Procedures Contact Contact Emergency Medicine Diagnoses ABD PAIN; [facility] Emergency Dept [address] [place] [address] Fax: Encounter Details Date Type Department Care Team Description 05/07/2020 Emergency ADC-Emergency Digna Kimball, RICHARD Bacteriuria (Primary Dx); Department [address] [place] [address]. Abdominal pain affecting [address] [place] [address] [address] [place] [address] [phone] Allergies Active Allergy Reactions Severity Noted Date Comments Penicillins Rash 05/07/2015 documented as of this encounter (statuses as of 05/07/2020) Medications Medication Sig Dispensed Refills Start Date End Date Status proMETHazine 25 mg Take 1 tablet by 12 tablet 0 03/16/2018 Active tablet mouth every 6 (six) hours as needed for Nausea and Vomiting (N/V). cetirizine (ZYRTEC) Take 1 tablet by 10 tablet 0 05/26/2019 Active 10 mg mouth daily. tabletIndications: Allergic rhinitis, unspecified seasonality, unspecified trigger fluticasone Use 1 [place] in 16 g 0 05/26/2019 Ac tive [...] as of this encounter (statuses as of 05/07/2020) Active Problems Problem Noted Date Threatened miscarriage in early 04/05/2020 Subchorionic hematoma in first trimester, single or un specified fetus 04/05/2020 Obesity (BMI 30-39.9) 03/23/2020 Allergic rhinitis, unspecified seasonality, unspecifie d trigger 05/26/2019 Need for influenza vaccination 05/26/2019 Estimated Date of Delivery Comments Yes 11/19/2020 Based on last menstr ual period of 02/13/2020 (Exact Date) documented as of this encounter (statuses as of 05/07/2020) Resolved Problems Problem Noted Date Resolved Date Visit for annual health examination 05/26/201903/09 Diarrhea, unspecified type 05/26/2019 03/23/2020 Non-recurrent acute suppurative otitis media of right ear 03/23/2020 without spontaneous rupture of tympanic membrane Acute otitis externa of right ear, unspecified type 05/08/20 19 03/23/2020 Right ear pain 05/08/2019 03/23/2020 Left knee pain 05/07/2015 02/15/2016 documented as of this encounter (statuses as of 05/07/2020) Immunizations Name Administration Dates Next Due DTAP [...] been in contact with No / Unsure 05/07/2020 5:30 PM CDT someone who was confirmed or suspected to have Coronavirus / COVID-19? documented as of this encounter Last Filed Vital Signs Vital Sign Reading Time Taken Comments Blood Pressure 118/76 05/07/2020 6:00 PM CDT Pulse 88 05/07/2020 6:00 PM CDT Temperature 37.3 C (99.1 F) 05/07/2020 4:39 PM CDT Respiratory Rate 19 05/07/2020 6:00 PM CDT Oxygen Saturation 100% 05/07/2020 6:00 PM CDT Inhaled Oxygen Concentration - - Weight 88.9 kg (196 lb) 05/07/2020 4:30 PM CDT Height - - Body Mass Index 32.62 04/27/2020 10:35 AM CDT documented in this encounter Discharge Instructions Digna Mclaughlin FNP - 05/07/2020DIAGNOSIS 1. Abdominal pain 2. Bacteriuria NO LIFE-THREATENING FINDINGS ON TODAY'S EXAM. PROCEDURES IN THE ER TODAY: labs MEDICATIONS ADMINISTERED IN THE ER TODAY: Keflex Normal saline YOUR PRESCRIPTIONS AND [id number] MEDICATION RECOMMENDATIONS: Keflex SPECIAL CARE INSTRUCTIONS: Follow up with OBGYN FOLLOW-UP RECOMMENDATIONS: RECOMMEND FOLLOW-UP WITH A PRIMARY CARE PROVIDER OR SPECIALIST IN 2-5 DAYS, ESPECIALLY IF NO IMPROVEMENT IN SYMPTOMS. TO FOLLOW-UP WITHIN THE [facility], TRY THESE OPTIONS (CLINIC APPOINTMENTS AVAILABLE ON [id number] BASIS): 1. SCHEDULE AN APPOINTMENT ONLINE AT WWW[facility] 2. OR CALL THE [facility] AT OR 3. OR CALL YOUR [facility] PHYSICIAN'S OFFICE DIRECTLY IF YOU ARE ALREADY AN ESTABLISHED [facility] PATIENT. OR, YOU MAY FOLLOW-UP WITH A PROVIDER OF YOUR CHOICE, SUCH : 1. A PHYSICIAN OF YOUR CHOICE 2. [facility], . LOCATIONS IN [facility] 3. [facility], [address], [place]; [phone] RETURN TO ER FOR WORSENING OF SYMPTOMS. AttachmentsThe following attachments cannot be sent through Care Everywhere. Cephalexin tablets or capsules (Nigerien)documented in this encounter ED Notes Sammi Roberts RN - 05/07/2020 4:28 PM CDTPt reports that she is approximately 11 weeks , A0, and has started having sharp abdomi nal pain. Reports that she is currently being treated for a bacteria with a "vaginal gel" Robert DignaRICHARD zuniga - 05/07/2020 4:13 PM CDT [facility] Emergency Department Note Patient Name: Fernanda Davis Date of : 1995 24 year old female Treatment Room: Room/bed info not found Patient Escorted by: Self [9] Mode of Arrival: Personal means [1] EMS Treatment Prior to ED Arrival: none Primary Care Physician: Mike Monsalve Chief Complaint: Chief Complaint Patient presents with Abdominal Pain Past Medical History: Diagnosis Date Seasonal allergies Past Surgical History: Procedure Laterality Date JOINT SURGERY Lt ACL & Menis. repair. 08/2014 TOOTH EXTRACTION Past Social History: Tobacco Use Never smoked or used smokeless tobacco. Alcohol Use No. Drug Use No. Sexual Activity Sexually active; Partners: Male; Control/Protection: None. Immunizations: Tetanus received in last 5 years: Unknown Childhood immunizations: Up-to-date Allergies: Allergies Allergen Reactions Pcn [Penicillins] Rash History of Present Illness: Fernanda Davis is a 24 year old female that is reportedly 11 weeks presents with sharp abdominal pain along the bladder. No N/V, fever, diarrhea, constipation, vaginal bleeding, suddengush of fluid. This is her second , no complications with the first. Is recieveing prenatalcare. No dysuria. 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: No Abdominal Pain Pain location: Suprapubic Pain quality: sharp Pain radiates to: Does not radiate Pain severity: Mild Duration: 1 day Timing: Constant Progression: Unchanged Chronicity: New Context: not alcohol use, not awakening from sleep, not diet changes, not eating, not laxative use, not medication withdrawal, not previous surgeries, not recent illness, not sick contacts and not trauma Relieved by: None tried Worsened by: Nothing Ineffective treatments: None tried Associated symptoms: no anorexia, no belching, no chest pain, no chills, no constipation, no cough, no diarrhea, no dysuria, no fever, no flatus, no hematemesis, no hematochezia, no hematuria, no melena, no nausea, no shortness of breath, no vaginal bleeding, no vaginal discharge and no vomiting Risk factors: HPI Review of Systems: Review of Systems Constitutional: Negative. Negative for chills and fever. HENT: Negative. Eyes: Negative. Respiratory: Negative. Negative for cough and shortness of breath. Breasts: Negative. Cardiovascular: Negative. Negative for chest pain. Gastrointestinal: Positive for abdominal pain. Negative for anorexia, blood in stool, constipation, diarrhea, flatus, hematemesis, hematochezia, melena, nausea and vomiting. Genitourinary: Negative for dysuria, hematuria, decreased urine volume, vaginal bleeding, vaginal discharge, difficulty urinating and pelvic pain. Musculoskeletal: Negative. Negative for neck pain and neck stiffness. Skin: Negative. Neurological: Negative. Psychiatric/Behavioral: Negative. All other systems reviewed and are negative. Endocrine: Endocrine negative Physical Exam: ED Triage Vitals [05/07/20 1630] Weight 88.9 kg (196 lb) Actual or estimated Height BP (!) 135/92 Pulse 89 Resp 18 Temp 37.3 C (99.1 F) Temp source Oral SpO2 97 % Measured on Room air Physical Exam Vitals signs and nursing note reviewed. Constitutional: General: She is not in acute distress. Appearance: Normal appearance. She is well-developed, well-groomed and normal weight. She is not ill-appearing, toxic-appearing or diaphoretic. HENT: Head: Normocephalic and atraumatic. Right Ear: External ear normal. Left Ear: External ear normal. Nose: Nose normal. Mouth/Throat: Lips: [place]. Mouth: Mucous membranes are moist. Pharynx: Oropharynx is clear. Eyes: General: Lids are normal. Pupils: Pupils are equal, round, and reactive to light. Neck: Musculoskeletal: Full passive range of motion without pain and normal range of motion. Cardiovascular: Rate and Rhythm: Normal rate and regular rhythm. Pulses: Normal pulses. Heart sounds: Normal heart sounds. Pulmonary: Effort: Pulmonary effort is normal. No respiratory distress. Breath sounds: Normal breath sounds. No decreased breath sounds, wheezing or rhonchi. Abdominal: General: Abdomen is flat. Bowel sounds are normal. There is distension. Palpations: Abdomen is soft. Tenderness: There is abdominal tenderness in the suprapubic area. There is no right CVA tenderness, left CVA tenderness, guarding or rebound. Musculoskeletal: Normal range of motion. Skin: General: Skin is warm and dry. Capillary Refill: Capillary refill takes less than 2 seconds. Neurological: General: No focal deficit present. Mental Status: She is alert and oriented to person, place, and time. GCS: GCS eye subscore is 4. GCS verbal subscore is 5. GCS motor subscore is 6. Cranial Nerves: Cranial nerves are intact. Sensory: Sensation is intact. Psychiatric: Attention and Perception: Attention and perception normal. Mood and Affect: Mood and affect normal. Speech: Speech normal. Behavior: Behavior normal. Behavior is cooperative. Thought Content: Thought content normal. Cognition and Memory: Cognition and memory normal. Judgment: Judgment normal. Radiology: No results found for this visit on 05/07/20. Lab Results (24h): Recent Results (from the past 24 hour(s)) TOTAL BHCG (QUANTITATIVE) Collection Time: 05/07/20 4:42 PM Result Value Ref Range BETA HCG 42,405.00 Non- female and male patients: <5 mIU/mL URINALYSIS Collection Time: 05/07/20 4:42 PM Result Value Ref Range APPEARANCE Cloudy (A) Clear COLOR Yellow Yellow PH 5.0 4.8 - 8.0 SP GRAVITY 1.017 1.003 - 1.030 GLU U QUAL Normal Normal BLOOD Negative Negative KETONES 20 mg/dL (A) Negative PROTEIN Negative Negative UROBILIN Normal Normal BILIRUBIN Negative Negative NITRITE Negative Negative LEUK DANNY 75/uL (A) Negative RBC/HPF 2 0 - 3 HPF WBC/HPF 1 0 - 5 HPF BACTERIA Few (A) Negative MUCOUS Slight (A) Negative LPF SQ EPITH 11 HPF CBC WITH DIFF Collection Time: 05/07/20 4:42 PM Result Value Ref Range WBC 11.33 (H) 4.30 - 11.10 10*3/L RBC 4.67 3.93 - 5.25 10*6/L HGB 13.6 11.6 - 15.0 g/dL HCT 41.1 35.7 - 45.2 % MCV 88.0 80.6 - 95.5 fL MCH 29.1 25.9 - 32.8 pg MCHC 33.1 31.6 - 35.1 g/dL RDW-SD 45.2 39.0 - 49.9 fL RDW-CV 14.1 12.0 - 15.5 % PLT 284 166 - 358 10*3/L MPV 12.4 9.5 - 12.9 fL NRBC/100 WBC 0.0 0.0 - 10.0 /100 WBCs NRBC x10^3 <0.01 10*3/L GRAN MAT (NEUT) % 71.1 % IMM GRAN % 0.60 % LYMPH % 21.0 % MONO % 6.1 % EOS % 0.7 % BASO % 0.5 % GRAN MAT x10^3(ANC) 8.05 (H) 1.88 - 7.09 10*3/uL IMM GRAN x10^3 0.07 (H) 0.00 - 0.06 10*3/uL LYMPH x10^3 2.38 1.32 - 3.29 10*3/uL MONO x10^3 0.69 0.33 - 0.92 10*3/uL EOS x10^3 0.08 0.03 - 0.39 10*3/uL BASO x10^3 0.06 0.01 - 0.07 10*3/uL COMP. METABOLIC PANEL (03745) Collection Time: 05/07/20 4:42 PM Result Value Ref Range NA 135 135 - 145 mmol/L K 3.3 (L) 3.5 - 5.0 mmol/L CL 101 98 - 108 mmol/L CO2 TOTAL 27 23 - 31 mmol/L AGAP 7 2 - 16 BUN 9 7 - 23 mg/dL GLUCOSE 98 70 - 110 mg/dL CREATININE 0.54 0.50 - 1.04 mg/dL TOTAL BILI 0.4 0.1 - 1.1 mg/dL CALCIUM 9.4 8.6 - 10.6 mg/dL T PROTEIN 7.9 6.3 - 8.2 g/dL ALBUMIN 4.0 3.5 - 5.0 g/dL ALK PHOS 71 34 - 122 U/L ALTv 18 5 - 35 U/L AST(SGOT) 22 13 - 40 U/L eGFR Calculation (Non-) 141.2 mL/min/1.73m2 eGFR Calculation () 171.1 mL/min/1.73m2 LIPASE Collection Time: 05/07/20 4:42 PM Result Value Ref Range LIPASE 71 0 - 220 U/L Pulse oximetry: Hypoxic/Not Hypoxic IV fluids: ED COURSE Pt with sharp suprapubic pain, no other associated symptoms, no vaginal bleeding. Labs, UA. Bed side US done. Normal heart tones heart rate 158, bedside US done by Dr. Velasco. DDX includes causes considered but not specified given they were low prob or unlikely to cause immediate or disability. Workup for unlisted, unlikely, or benign causes would likely have yielded harm exceeding benefit. Orders: Orders Placed This Encounter Procedures TOTAL BHCG (QUANTITATIVE) URINALYSIS CBC WITH DIFF COMP. METABOLIC PANEL (76786) LIPASE URINE CULTURE Procedures: Procedures Treatment Medications: Orders Placed This Encounter Medications NaCl 0.9% (NS) bolus infusion 1,000 mL cephALEXin (KEFLEX) capsule 500 mg Diagnosis/Impression: ICD-10-CM ICD-9-CM 1. Bacteriuria R82.71 791.9 2. Abdominal pain affecting O26.899 646.80 R10.9 789.00 Disposition/Condition: ED Disposition None Discharge Medications: Patient's Medications START taking these medications No medications on file CONTINUE taking these medications which have NOT CHANGED CETIRIZINE (ZYRTEC) 10 MG TABLET Take 1 tablet by mouth daily. DOXYLAMINE-PYRIDOXINE, VIT B6, (DICLEGIS) 10-10 MG PER TABLET Take 1 tablet by mouth SEE-INSTRUCTIONS. FLUTICASONE PROPIONATE (FLONASE ALLERGY RELIEF) 50 MCG/ACTUATION NASAL SPRAY Use 1 [place] in eachnostril daily. KETOCONAZOLE 2 % CREAM Apply to area(s) daily. METOCLOPRAMIDE HCL 10 MG TABLET Take 1 tablet by mouth every 6 (six) hours as needed for Nausea and Vomiting (N/V) (alternate with unisom/vitamin B6). METRONIDAZOLE 0.75 % VAGINAL GEL Insert 1 Applicator into vagina at bedtime for 5 days. Insertar1 aplicador en la vagina a la hora de dormir por 5 epstein. METRONIDAZOLE 500 MG TABLET Take 1 tablet by mouth every 12 (twelve) hours. NITROFURANTOIN&NIT. MACROCRYST (MACROBID) 100 MG CAPSULE Take 1 capsule by mouth 2 (two) times daily. 25/IRON FUM/FOLIC/DHA (-1 ORAL) Take by mouth. PROMETHAZINE 25 MG TABLET Take 1 tablet by mouth every 6 (six) hours as needed for Nausea and Vomiting (N/V). TRIAMCINOLONE ACETONIDE 0.1 % CREAM Apply to area(s) 2 (two) times daily. START taking Modified Medications as Prescribed No medications on file STOP taking these medications No medications on file Follow-up: Plan: Pt presented with suprapubic abdominal pain. No other concerning symptoms no vaginal bleeding.Labs sent: WBC 11.33, no bandemia, beta HCG 42,405, UA does not show a UTI but she does have bacteria in her urine. Urine culture sent, Keflex started. Discussed follow up with OBGYN.The patient is well appearing, non-toxic, and in no acute distress. Findings, pathophysiology related to disease process, and differential diagnosis discussed with the patient. Strict warning signs and return precautionsprovided. I discussed plan for discharge and return precautions along with the need for out patient follow up with patient and or family, they are in agreement and verbalized understanding of the plan. The patient/parent appears to have appropriate medical decision making capacity. I have considered medical emergencies that could be related to this patient's clinical presentation,including life and limb threatening disease processes. I am unable to find any evidence that one might be present at this time and the patient's condition is stabilized. In my medical judgment, there is no indication for further evaluation, treatment, or admission of the patient. Comprehensive verbal and written discharge and follow up instructions have been provided to the patient and/or family. Reviewed GALLERY OR MUSEUM ATTENDANT if indicated. If pain medicine was prescribed it was for the following reason: MDM: MDM Reviewed: previous chart, nursing note and vitals Reviewed previous: labs Interpretation: labs Total time providing critical care: < 30 minutes. This excludes time spent performing separately reportable procedures and services. Electronically signed by: RICHARD Ayoub 05/07/2020 4:15 PM Associated attestation - Ángela Velasco DO - 05/07/2020 6:21 PM CDTI was personally available for consultation in the Emergency Department during this encounter and patient evaluation by Digna Kimball. documented in this encounter Miscellaneous Notes ED Procedure Note - Ángela Velasco DO - 05/07/2020 4:49 PM CDTProcedures Limited Transabdominal Ultrasound Indications: , abdominal pain and/or bleeding Findings: SIUP with EGA 10 weeks 1 days and FHT 158 bpm. No free fluid. Adnexa not visualized. Interpretation: SIUP documented in this encounter Plan of Treatment Date Type Specialty Care Team Description 05/10/2020 Routine Obstetrics & Acevedo, Annetta Clay MD Visit Gynecology [address] [place] [address] DR. Mejia [place], [place] [address] [phone] Name Type Priority Associated Diagnoses Date/Ti me URINE CULTURE LAB STAT Abdominal pain affecting 5:35 PM CDT Name Type Priority Associated Diagnoses Order S chedule URINE CULTURE LAB STAT Abdominal pain affecting ST AT for 1 Occurrences starting 2019 until 05/07/2020 Health Maintenance Due Date Last Done Comments [...] Procedure Name Priority Date/Time Associated Comments Diagnosis URINALYSIS STAT 05/07/2020 4:42 PM Abdominal pain Result s for this CDT affecting procedur e are in the results section. CBC WITH DIFF STAT 05/07/2020 4:42 PM Abdominal pain Resul ts for this CDT affecting procedur e are in the results section. TOTAL BETA HCG ASSAY STAT 05/07/2020 4:42 PM Abdominal sahil n Results for this CDT affecting procedur e are in the results section. COMP. METABOLIC STAT 05/07/2020 4:42 PM Abdominal pain Res ults for this PANEL (87941) CDT affecting procedu re are in the results section. LIPASE STAT 05/07/2020 4:42 PM Abdominal pain Result s for this CDT affecting procedur e are in the results section. NOTICE OF PRIVACY Routine 05/07/2020 4:13 PM PRACTICES CDT documented in this encounter Results LIPASE (05/07/2020 4:42 PM CDT) Pathologist Sig Bitvore LIPASE 71 0 - 220 U/L [facility] Specimen Blood - VENOUS Performing Organization Address City/State/Zipcode Phone Number [facility] CLIA: [id number] [place] [address] COMP. METABOLIC PANEL ([id number]) (05/07/2020 4:42 PM CDT) Pathologist Sig Bitvore NA 135 135 - 145 [facility] mmol/L [facility] K 3.3 (L) 3.5 - 5.0 [facility] mmol/L [facility] CL 101 98 - 108 mmol/L [facility] CO2 TOTAL 27 23 - 31 mmol/L [facility] AGAP 7 2 - 16 [facility] BUN 9 7 - 23 mg/dL [facility] GLUCOSE 98 70 - 110 mg/dL [facility] CREATININE 0.54 0.50 - 1.04 [facility] mg/dL [facility] TOTAL BILI 0.4 0.1 - 1.1 mg/dL [facility] CALCIUM 9.4 8.6 - 10.6 [facility] mg/dL [facility] T PROTEIN 7.9 6.3 - 8.2 g/dL [facility] ALBUMIN 4.0 3.5 - 5.0 g/dL [facility] ALK PHOS 71 34 - 122 U/L [facility] ALTv 18 5 - 35 U/L [facility] AST(SGOT) 22 13 - 40 U/L [facility] eGFR Calculation 141.2 mL/min/1.73m2 [facility] (Non-[facility] LABORATORY [place]) eGFR Calculation 171.1 mL/min/1.73m2 [facility] () [facility] Specimen Blood - VENOUS Narrative [place]formed At [facility] Glomerular Filtration Rate (GFR) [facility] and Staging of Kidney Disease* + [...] tests). Performing Organization Address City/State/Zipcode Phone Number [facility] CLIA: [id number] [place] [address] CBC WITH DIFF (05/07/2020 4:42 PM CDT) Pathologist [facility] nature WBC 11.33 (H) 4.30 - 11.10 [facility] 10*3/L [facility] RBC 4.67 3.93 - 5.25 [facility] 10*6/L [facility] HGB 13.6 11.6 - 15.0 [facility] g/dL [facility] HCT 41.1 35.7 - 45.2 % [facility] MCV 88.0 80.6 - 95.5 fL [facility] MCH 29.1 25.9 - 32.8 pg [facility] MCHC 33.1 31.6 - 35.1 [facility] g/dL [facility] RDW-SD 45.2 39.0 - 49.9 fL [facility] RDW-CV 14.1 12.0 - 15.5 % [facility] PLT 284 166 - 358 [facility] 10*3/L [facility] MPV 12.4 9.5 - 12.9 fL [facility] NRBC/100 WBC 0.0 0.0 - 10.0 /100 [facility] WBCs [facility] NRBC x10^3 <0.01 10*3/L [facility] GRAN MAT (NEUT) % 71.1 % [facility] IMM GRAN % 0.60 % [facility] LYMPH % 21.0 % [facility] MONO % 6.1 % [facility] EOS % 0.7 % [facility] BASO % 0.5 % [facility] GRAN MAT x10^3(ANC) 8.05 (H) 1.88 - 7.09 [facility] 10*3/uL [facility] IMM GRAN x10^3 0.07 (H) 0.00 - 0.06 [facility] 10*3/uL [facility] LYMPH x10^3 2.38 1.32 - 3.29 [facility] 10*3/uL [facility] MONO x10^3 0.69 0.33 - 0.92 [facility] 10*3/uL [facility] EOS x10^3 0.08 0.03 - 0.39 [facility] 10*3/uL [facility] BASO x10^3 0.06 0.01 - 0.07 [facility] 10*3/uL [facility] Specimen Blood - VENOUS Performing Organization Address City/State/Zipcode Phone Number [facility] CLIA: [id number] [place] [address] URINALYSIS (05/07/2020 4:42 PM CDT) Pathologist Sig nature APPEARANCE Cloudy (A) Clear [facility] COLOR Yellow Yellow [facility] PH 5.0 4.8 - 8.0 [facility] SP GRAVITY 1.017 1.003 - 1.030 [facility] GLU U QUAL Normal Normal [facility] BLOOD Negative Negative [facility] KETONES 20 mg/dL (A) Negative [facility] PROTEIN Negative Negative [facility] UROBILIN Normal Normal [facility] BILIRUBIN Negative Negative [facility] NITRITE Negative Negative [facility] LEUK DANNY 75/uL (A) Negative [facility] RBC/HPF 2 0 - 3 HPF [facility] WBC/HPF 1 0 - 5 HPF [facility] BACTERIA Few (A) Negative [facility] MUCOUS Slight (A) Negative LPF [facility] SQ EPITH 11 HPF [facility] Specimen Urine - URINE, CLEAN CATCH Performing Organization Address City/[facility] Phone Number [facility] CLIA: [id number] [place] [address] TOTAL BHCG (QUANTITATIVE) (05/07/2020 4:42 PM CDT) [facility] BETA HCG 42,405.00 Non- female [facility] and male patients: HOSPITAL LABORATORY <5 mIU/mL Specimen Blood - VENOUS Narrative Performed At [facility] LABORATORY Gestational Age Range (mIU/mL) 1-10 Weeks 4 [id number] 11-15 Weeks [id number] 16-22 Weeks [id number] 23-40 Weeks [id number] Biotin has been reported to cause a negative bias, interpret results relative to patient's use of biotin. Performing Organization Address City/[facility] Center[facility]t Phone Number [facility] CLIA: [id number] [place] [address] documented in this encounter Visit Diagnoses Diagnosis Bacteriuria - Primary Other nonspecific finding on examination of urine Abdominal pain affecting documented in this encounter Administered Medications Medication Order MAR Action Action Date Dose Rate Site cephALEXin (KEFLEX) capsule 500 Given 05/07/2020 6:06 PM CDT 50 0 mg mg 500 mg, Oral, ONCE NOW, 1 dose, Sun05/07/20 at 1900, WICHO, Reason for Anti-Infective: Empiric Therapy for Suspected Infection, Empiric Therapy Site: Urine, Duration of therapy: 7 days NaCl 0.9% (NS) bolus infusion New Bag 05/07/2020 5:35 PM CDT 1,000 mL 999 mL/hr 1,000 mL at 999 mL/hr, 1,000 mL, IV Infusion, ONCE, 1 dose, Sun05/07/20 at 1845, STAT documented in this encounter Insurance Payer Benefit Plan / Subscriber ID Effective Phone Address T e Group [facility] [id number] 2020-Pre P[address]. BOX Medica id [place] HEALTH CHOICE sent [id number] - MANAGED MEDICAID [place], [place] [address] [facility] [id number] 2019-Pres [phone] P O BOX PPO/POS - OUT OF [facility] ent [id number] [place] [address] documented as of this encounter
--- OUTSIDE RECORDS SUMMARY | 2020-06-02 15:56 | XMS REPORT | Summary of Care ---
:1997 Author Organization [facility] - Health Address [address] [place] [address] Care Team Providers Name Role Phone MD Bello Primary Care Provider Encounter Details Date Type Department Care Team Description 05/07/2020 Orders Only [facility] Doctor Unassigned, No 301 [facility] [place] [address] [place] [address] Allergies Active Allergy Reactions Severity Noted Date [...] unspecified seasonality, unspecified trigger fluticasone Use 1 [place] in 16 g 0 05/26/2019 Ac tive [...] & Acevedo, Annetta Clay MD Visit Gynecology [address] [place] [address] DR. Lewis, MD 771 15 [phone] Health Maintenance Due Date Last Done Comments [...] Associated Diagnosis Comme nts CONSENT/REFUSAL FOR Routine 05/07/2020 4:13 PM CDT DIAGNOSIS AND TREATMENT documented in this encounter Results Not on filedocumented in this encounter Insurance Payer Benefit Plan / Subscriber ID Effective Phone Address T ype Group Dates [employer] [place] [id number] 2019-Prese [phone] P O BOX PPO/POS [place] - OUT OF STATE nt 87 [id number] [place] [address] [facility] MEDICAID OF [id number] 2020-Prese [phone] P [address] BOX Me dicaid [place] nt 00 [id number] [place] [address] documented as of this encounter
--- OUTSIDE RECORDS SUMMARY | 2020-06-02 15:56 | XMS REPORT | Summary of Care ---
:1997 Author Organization [facility] Address [address] [place] [address] Care Team Providers Name Role Phone MD Bello Primary Care Provider Reason for Visit Reason Comments Abnormal Lab Encounter Details Date Type Department Care Team Description 05/10/2020 Case Management [facility] [place] [facility] Women's Ely Crow PA-C Abnormal Lab Healthcare- [place] 146 [facility] 146 [facility] [address] [place] [address] [phone] Allergies Active Allergy Reactions Severity Noted Date [...] unspecified seasonality, unspecified trigger fluticasone Use 1 [place] in 16 g 0 05/26/2019 Ac tive [...] with No / Unsure 05/10/2020 8:32 AM DIVERSITY SPECIALIST someone who was confirmed or suspected to have Coronavirus / COVID-19? documented as of this encounter Last Filed Vital Signs Not on filedocumented in this encounter Plan of Treatment Date Type Specialty Care Team Description 06/08/2020 Routine Obstetrics & Joan Crow, Visit Gynecology [facility] [address] [address] Name Type Priority Associated Diagnoses Order S chedule 3 HR GLUCOSE TOLERANCE LAB Routine Abnormal maternal glucose Expected: 05/10/2020, PANEL tolerance, antepartum s: 05/10/2021 Health Maintenance Due Date Last Done Comments [...] filedocumented in this encounter Visit Diagnoses Diagnosis Abnormal maternal glucose tolerance, ant epartum - Primary documented in this encounter Insurance Payer Benefit Plan / Subscriber ID Effective Phone Address T ype Group [facility] [id number] 2020-Pre P[address]O. BOX Medica id HEALTH CHOICE HEALTH CHOICE sent [id number] - MANAGED MEDICAID [place] [address] [facility] [id number] 2019-Pres [phone] P O BOX PPO/POS - OUT OF STATE ent [id number] [place] [address] documented as of this encounter
--- OUTSIDE RECORDS SUMMARY | 2020-06-02 15:56 | XMS REPORT | Summary of Care ---
:1997 Author Organization [facility] - [facility] Address [address] [place] [address] Care Team Providers Name Role Phone MD Bello Primary Care Provider Reason for Visit Reason Comments Assessment TRIAGE Encounter Details Date Type Department Care Team Description 05/07/2020 Telephone [facility] Women's AcevedoAnnetta MD Assessment (TRIAGE ) Healthcare- [address] 146 [facility] [place] [address], [address] [place] [address] [place] [address] [phone] Allergies Active Allergy Reactions Severity Noted Date [...] unspecified seasonality, unspecified trigger fluticasone Use 1 [place] in 16 g 0 05/26/2019 Ac tive [...] Telephone Encounter - Ce Soto RN - 05/07/2020 3:50 PM CDTRN spoke with patient, name and verified. Patient states that pain started about 20 minutes ago and is getting worse. Patient states that pain is sharp and constant, rating 8/10, she has not tried any medications. Patient states that pain is under her belly button. Patient had a normal BM this morning. Patient denies vaginal and UTI symptoms. RN advised patient to go to the ER for further evaluation of symptoms. Patient verbalized understanding and agrees to plan of care. Ce Soto RN 05/07/2020 3:53 PM Telephone Encounter - Carrie Barrientos - 05/07/2020 3:41 PM CDTPatient is 2 months and is stating that she has been have pain since this morning but it isstarting to worsen. Patient is being transferred to a nurse. documented in this encounter Plan of Treatment Date Type Specialty Care Team Description 05/10/2020 Routine Obstetrics & Acevedo, Annetta Clay MD Visit Gynecology [address] [place] [address] DR. Mejia [place] [address] [phone] Health Maintenance Due Date Last Done Comments [...] ype Group Dates [place] [id number] 2019-Prese [phone] P O BOX PPO/POS [place] - OUT OF STATE nt [id number] [place] [address] [facility] MEDICAID OF [id number] 2020-Prese [phone] P O BOX Me dicaid [place] nt 00 [id number] [place] [address] documented as of this encounter
--- OUTSIDE RECORDS SUMMARY | 2020-06-02 15:57 | XMS REPORT | Summary of Care ---
:1997 Author Organization [facility] - [facility] Address [address] [place] [address] Care Team Providers Name Role Phone MD Bello Primary Care Provider Reason for Visit Reason Comments Appointment Encounter Details Date Type Department Care Team Description 05/19/2020 Telephone [facility] Women's AcevedoAnnetta MD Appointment Healthcare- [address] DRBritt 146 [facility] [address] [place] [address] [place] [address] [phone] Allergies Active Allergy Reactions Severity Noted Date Comments Penicillins Rash 05/07/2015 documented as of this encounter (statuses as of 05/19/2020) Medications Medication Sig Dispensed Refills Start Date End Date Status proMETHazine 25 mg Take 1 tablet by 12 tablet 0 03/16/2018 Active tablet mouth every 6 (six) hours as needed for Nausea and Vomiting (N/V). cetirizine (ZYRTEC) 10 Take 1 tablet by 10 tablet 0 05/26/2019 Active mg tabletIndications: mouth daily. Allergic rhinitis, unspecified seasonality, unspecified trigger fluticasone propionate Use 1 [place] in 16 g 0 05/26/2019 Active (FLONASE [...] as of this encounter (statuses as of 05/19/2020) Active Problems Problem Noted Date Threatened miscarriage in early 04/05/2020 Subchorionic hematoma in first trimester, single or un specified fetus 04/05/2020 Obesity (BMI 30-39.9) 03/23/2020 Allergic rhinitis, unspecified seasonality, unspecifie d trigger 05/26/2019 Need for influenza vaccination 05/26/2019 Estimated Date of Delivery Comments Yes 11/19/2020 Based on last menstr ual period of 02/13/2020 (Exact Date) documented as of this encounter (statuses as of 05/19/2020) Resolved Problems Problem Noted Date Resolved Date Visit for annual health examination 05/26/201903/09 Diarrhea, unspecified type 05/26/2019 03/23/2020 Non-recurrent acute suppurative otitis media of right ear 03/23/2020 without spontaneous rupture of tympanic membrane Acute otitis externa of right ear, unspecified type 05/08/20 19 03/23/2020 Right ear pain 05/08/2019 03/23/2020 Left knee pain 05/07/2015 02/15/2016 documented as of this encounter (statuses as of 05/19/2020) Immunizations Name Administration Dates Next Due DTAP [...] been in contact with No / Unsure 05/18/2020 8:51 AM DOUPER someone who was confirmed or suspected to have Coronavirus / COVID-19? documented as of this encounter Last Filed Vital Signs Not on filedocumented in this encounter Miscellaneous Notes Telephone Encounter - Cherelle Rutherford MA - 05/19/2020 2:30 PM CSTS/w patient and identified her name and , patient stated she was needing to reschedule her lab appointment, but someone has already reached out to her and appointment has been scheduled. documented in this encounter Plan of Treatment Date Type Specialty Care Team Description 05/24/2020 Participant Administrator Visit Phlebotomy 2, Adc Lab 06/08/2020 Routine Visit Obstetrics & Joan Crow, Gynecology [facility] [address] [place] [address] Health Maintenance Due Date Last Done Comments [...] Effective Phone Address T ype Group Dates [facility] [id number] 2019-Pres [phone] P O BOX PPO/POS - OUT OF STATE ent [phone] [id number] [place] [address] [employer] [id number] 2020-Pre [address] BOX Medica id HEALTH [employer] HEALTH CHOICE sent [id number] - MANAGED MEDICAID [place], [place] MED[place] [id number] documented as of this encounter
--- OUTSIDE RECORDS SUMMARY | 2020-06-02 15:57 | XMS REPORT | Summary of Care ---
:[address] [facility] Data Impact Address [address] [place] [address] Care Team Providers Name Role Phone MD Bello Primary Care Provider Reason for Visit Reason Comments ROUTINE VISIT Encounter Details Date Type Department Care Team Description 05/10/2020 Routine [facility] Women's Annetta Acevedo am, MD High-risk in first trimester ( Primary Dx); Visit Healthcare- [address] [place] [address] 12 weeks g estation of [place] [address] [place] [address] [address], [address] [place] [address] [phone] Allergies Active Allergy Reactions Severity Noted Date Comments Penicillins Rash 05/07/2015 documented as of this encounter (statuses as of 05/10/2020) Medications Medication Sig Dispensed Refills Start End Date Status Date proMETHazine 25 mg Take 1 tablet 12 tablet 0 Active tablet by mouth every 8 6 (six) hours as needed for Nausea and Vomiting (N/V). cetirizine (ZYRTEC) Take 1 tablet 10 tablet 0 Active 10 mg by mouth 9 tabletIndications: daily. Allergic rhinitis, unspecified seasonality, unspecified trigger fluticasone Use 1 [place] in 16 g 0 Act hussein propionate (FLONASE each nostril 9 ALLERGY RELIEF) 50 daily. mcg/actuation nasal sprayIndications: Allergic rhinitis, unspecified seasonality, unspecified trigger 25/iron Take by 0 Act hussein fum/folic/dha mouth. (-1 ORAL) doxylamine-pyridoxi Take 1 tablet 120 tablet 3 Active ne, vit B6, by mouth 0 (DICLEGIS) 10-10 mg SEE-INSTRUCTIO per NS. tabletIndications: Positive test, Vomiting or nausea of ketoconazole 2 % Apply to 15 g 1 Act hussein creamIndications: area(s) daily. 0 Candidiasis of skin and nails triamcinolone Apply to 15 g 1 Active acetonide 0.1 % area(s) 2 0 creamIndications: (two) times Candidiasis of skin daily. and nails metoclopramide HCl Take 1 tablet 30 tablet 1 Active 10 mg tablet by mouth every 0 6 (six) hours as needed for Nausea and Vomiting (N/V) (alternate with unisom/vitamin B6). cephALEXin (KEFLEX) Take 1 capsule 20 capsule 0 10/26 Active 500 mg by mouth 4 0 20 capsuleIndications: (four) times Abdominal pain daily for 5 affecting days. , Bacteriuria Nitrofurantoin&Nit. Take 1 capsule 10 capsule 0 08/28 Discontinued Macrocryst by mouth 2 0 20 (Patient (MACROBID) 100 mg (two) times Reported) capsuleIndications: daily. Vaginal spotting, Threatened miscarriage, Urinary tract infection with hematuria, site unspecified metroNIDAZOLE 500 Take 1 tablet 14 tablet 0 05/10/20 Discontinued mg by mouth every 0 20 (Marissa ent tabletIndications: 12 (twelve) Reported) BV (bacterial hours. vaginosis) metroNIDAZOLE 0.75 Insert 1 5 Each 0 05/10/20 D iscontinued % vaginal Applicator 0 20 (Patient gelIndications: BV into vagina at Reported) (bacterial bedtime for 5 vaginosis) days. Insertar 1 aplicador en la vagina [...] with No / Unsure 05/10/2020 8:32 AM EMERGENCY MANAGEMENT DIRECTOR someone who was confirmed or suspected to have Coronavirus / COVID-19? documented as of this encounter Last Filed Vital Signs Vital Sign Reading Time Taken Comments Blood Pressure 138/84 05/10/2020 8:50 AM EMERGENCY MANAGEMENT DIRECTOR Pulse 96 05/10/2020 8:50 AM EMERGENCY MANAGEMENT DIRECTOR Temperature 36.6 C (97.8 F) 05/10/2020 8:50 AM EMERGENCY MANAGEMENT DIRECTOR Respiratory Rate 18 05/10/2020 8:50 AM EMERGENCY MANAGEMENT DIRECTOR Oxygen Saturation - - Inhaled Oxygen Concentration - - Weight 88.9 kg (196 lb) 05/10/2020 8:50 AM EMERGENCY MANAGEMENT DIRECTOR Height 165.1 cm (5' 5") 05/10/2020 8:50 AM EMERGENCY MANAGEMENT DIRECTOR Body Mass Index 32.62 05/10/2020 8:50 AM EMERGENCY MANAGEMENT DIRECTOR documented in this encounter Patient Instructions Patient InstructionsErin Streeter MA - 05/10/2020 8:45 AM EMERGENCY MANAGEMENT DIRECTOR Patient Education Comfort Tips During can bring discomfort of different kinds. Below are tips for ways to feel better.Talk with yourhealthcare provider before using pain-relieving medicine at any time during your . First trimester tips Easing nausea Get up slowly. Eat a few unsalted crackers before you get out of bed. Avoid smells that bother you. Eat small,bland, low-fat, high-protein meals at frequent intervals. Sip on water, weaktea, or clear soft drinks, like ira lincoln.Eat ice chips. Try taking vitamin B6. Coping with fatigue Take catnaps when you can. Get regular exercise. Accept help from others. Practice good sleep habits, like going to bed and getting up at the same time each day. Use your bed only for sleep and sex. Calming mood swings Talk about your feelings with others, including other mothers. Limit sugar, chocolate, and caffeine. Eat a healthy diet. Dont skip meals. Get regular exercise. Soothing headaches Get fresh air and exercise. Relax and get enough rest. Check with your healthcare provider before taking any pain medicines. Second trimester tips To limit ankle swelling, sit with your feet raised or wear support hose. If you have pain in your groin and stomach(round ligament pain), don't make sudden twisting movements with your body. For leg cramps, flexing your foot often brings immediate relief. Also try massaging your calf in long, downward strokes, or stretching your legs before going to bed. Get enough exercise and wear shoes with flexible soles. Eat foods rich in calcium. Third trimester tips Reducing heartburn Eat small, light meals throughout the day rather than 3 large ones. Sleep with your upper body raised 6 inches. Dont lie down until 2 hours after you eat. Don't eat greasy, fried, or spicy foods. Don't have citrus fruits or juices. Treating constipation Eat foods high in fiber, such as whole-grain foods, and fresh fruit and vegetables). Drink plenty of water. Get regular exercise. Ask about your healthcare provider about medicines that have docusate or psyllium. Taking care of your breasts Don't use harsh soaps or alcohol, which can make your skin too dry. Wear nursing bras. They provide more support than regular bras and can be used after ifyou breastfeed. Getting a good nights sleep Take a warm shower before bed. Sleep on a firm mattress. Lie on your side with 1 leg crossed over the other. Use pillows to support your arms, legs, and belly. [employer] (deja mi) last reviewed this educational content on 02/07/202019999152-8112 The [employer]. All rights reserved. This information is not intended as a substitute for professional medical care. Always follow your healthcare professional's instructions. GENCY MANAGEMENT DIRECTOR documented in this encounter Progress Notes Annetta Acevedo MD - 05/10/2020 8:45 AM CST ROUTINE VISIT 05/10/2020 8:55 AM SUBJECTIVE Fernanda Davis is a 24 year old at 12w3d who presents for routine visit. She has no complaints today; denies vaginal bleeding or cramping. Currently on abx for UTI. OBJECTIVE BP 138/84 (BP Location: Left arm, Patient Position: Sitting, BP CUFF SIZE: Adult Medium) | Pulse 96 | Temp 36.6 C (97.8 F) (Oral) | Resp 18 | Ht 5' 5" (1.651 m) | Wt 196 lb (88.9 kg) | LMP 02/13/2020 (Exact Date) | BMI 32.62 kg/m FHT: 143 Physical Exam: Gen: A&Ox3, NAD CV: RRR Pulm: CTAB Abd: Soft, NTTP, ND, no rebound or guarding Ext: No calf tenderness ASSESSMENT: Fernanda Davis is a 24 year old at 12w3d who presents for routine visit. Plan: See OB Summary RTC in 4 weeks for PN visit Scribe's Attestation Azam Vega am scribing for, and in the presence of, Annetta Acevedo MD who performed the services described here-in. Azam Chavez, May 10, 2020, 8:55 AM Physician's Attestation I have seen and examined the patient and agreed with the note above Annetta Acevedo MD 05/10/2020 6:25 PM documented in this encounter Miscellaneous Notes OB Summary Note - Azam Chavez - 05/10/2020 8:45 AM CST Age: [age] year old GA: 12w3d Doing well, no complaints Patient went to ED on 05/07/2020 for abdominal pain and was noted to have UTI Patient is on antibiotics. Will send urine cx for FER at next visit Patient opts for panorama kit given today. Declined Horizon carrier screening NOB labs not done yet. Advise to get it done today RTC in 4 weeks for PN visit Brendenibe's AttestAzam Ochoa am scribing for, and in the presence of, Annetta Acevedo MD who performed the services described here-in. Azam Chavez, May 10, 2020, 8:54 AM Physician's Attestation I have seen and examined the patient and agreed with the note above Annetta Acevedo MD 05/10/2020 6:24 PM documented in this encounter Plan of Treatment Date Type Specialty Care Team Description 05/12/2020 Distribution Sales Manager Visit Phlebotomy 2, Adc Lab 06/08/2020 Routine Visit Obstetrics & Joan Crow, Gynecology [facility] [address] [phone] Health Maintenance Due Date Last Done Comments [...] Diagnosis Comme nts POCT URINALYSIS W/O Routine 05/10/2020 12 weeks gestation of Results for this SPECIFIC GRAVITY procedure a re in the results section . documented in this encounter Results POCT URINALYSIS W/O SPECIFIC GRAVITY (05/10/2020) Pathologist Sig nature POCT PH U N/A 5 - 8 mg/dl POCT U LEUK EST N/A Negative - Negative POCT U NIT N/A Negative - Negative POCT U PROT Negative Negative - Negative POCT U GLU Negative Negative - Negative POCT U KETONE N/A Negative - Negative POCT U BLD N/A Negative - Negative Specimen Urine - URINE, CLEAN CATCH documented in this encounter Visit Diagnoses Diagnosis High-risk in first trimester - Primary 12 weeks gestation of state, incidental documented in this encounter Insurance Payer Benefit Plan / Subscriber ID Effective Phone Address T ype Group Dates [facility] [id number] 2019-Pres [phone] P O BOX PPO/POS - OUT OF STATE ent [id number] [place] [address] [employer] [id number] 2020-Pre [address]O. BOX Medica id HEALTH CHOICE HEALTH CHOICE sent [id number] - MANAGED MEDICAID [place], [place] [phone] documented as of this encounter
--- OUTSIDE RECORDS SUMMARY | 2020-06-02 15:57 | XMS REPORT | Summary of Care ---
:1997 Author Organization [facility] - [facility] Address [address] [place] [address] Care Team Providers Name Role Phone MD Bello Primary Care Provider Encounter Details Date Type Department Care Team Description 05/18/2020 Letter (Out) [facility] Women's Ely Crow PA-C Healthcare- [place] 146 [facility] 146 [facility] [address] [place] [address] [place] [address] [phone] Allergies Active Allergy Reactions Severity Noted Date Comments Penicillins Rash 05/07/2015 documented as of this encounter (statuses as of 05/18/2020) Medications Medication Sig Dispensed Refills Start Date End Date Status proMETHazine 25 mg Take 1 tablet by 12 tablet 0 03/16/2018 Active tablet mouth every 6 (six) hours as needed for Nausea and Vomiting (N/V). cetirizine (ZYRTEC) 10 Take 1 tablet by 10 tablet 0 05/26/2019 Active mg tabletIndications: mouth daily. Allergic rhinitis, unspecified seasonality, unspecified trigger fluticasone propionate Use 1 [place] in 16 g 0 05/26/2019 Active [...] as of this encounter (statuses as of 05/18/2020) Active Problems Problem Noted Date Threatened miscarriage in early 04/05/2020 Subchorionic hematoma in first trimester, single or un specified fetus 04/05/2020 Obesity (BMI 30-39.9) 03/23/2020 Allergic rhinitis, unspecified seasonality, unspecifie d trigger 05/26/2019 Need for influenza vaccination 05/26/2019 Estimated Date of Delivery Comments Yes 11/19/2020 Based on last menstr ual period of 02/13/2020 (Exact Date) documented as of this encounter (statuses as of 05/18/2020) Resolved Problems Problem Noted Date Resolved Date Visit for annual health examination 05/26/201903/09 Diarrhea, unspecified type 05/26/2019 03/23/2020 Non-recurrent acute suppurative otitis media of right ear 03/23/2020 without spontaneous rupture of tympanic membrane Acute otitis externa of right ear, unspecified type 05/08/20 19 03/23/2020 Right ear pain 05/08/2019 03/23/2020 Left knee pain 05/07/2015 02/15/2016 documented as of this encounter (statuses as of 05/18/2020) Immunizations Name Administration Dates Next Due DTAP [...] with No / Unsure 05/18/2020 8:51 AM ETL ARCHITECT someone who was confirmed or suspected to have Coronavirus / COVID-19? documented as of this encounter Last Filed Vital Signs Not on filedocumented in this encounter Plan of Treatment Date Type Specialty Care Team Description 05/18/2020 Routine Obstetrics & Joan Crow, Dysuria (Primary Dx); Visit Gynecology PA-C High-risk in second trimester; [address] [facility] [address] [place] [address] 05/19/2020 Management Department Chair Visit Phlebotomy 2, Adc Lab 06/08/2020 Routine Obstetrics & Joan Crow, Visit Gynecology PA-C [address] [place] [address] Health Maintenance Due Date Last Done [...] Effective Phone Address T ype Group Dates [facility] [id number] 2019-Pres [phone] P O B[address] PPO/POS - OUT OF STATE ent [phone] [id number] [place] [address] [employer] [id number] 2020-Pre [address] Medica id HEALTH CHOICE HEALTH CHOICE sent [id number] - MANAGED MEDICAID [place], [place] [phone] documented as of this encounter
--- OUTSIDE RECORDS SUMMARY | 2020-06-02 15:57 | XMS REPORT | Summary of Care ---
:1995 Author Organization [facility] [facility] Address [address] [place] [address] Care Team Providers Name Role Phone MD Bello Primary Care Provider Reason for Visit Reason Comments LAB Encounter Details Date Type Department Care Team Description 05/24/2020 Liability Claims Representative Visit [facility] Jean Carlos Monsalve MD [address] [place] [address] [address] [place] [address] Abnormal maternal Professional Office 2, [facility] Lab glucose tolerance, Building Phlebotomy [facility] Lab Professional Office Building [address] [facility] , [address] [place] [address] Allergies Active Allergy Reactions Severity Noted Date Comments Penicillins Rash 05/07/2015 documented as of this encounter (statuses as of 05/24/2020) Medications Medication Sig Dispensed Refills Start Date End Date Status proMETHazine 25 mg Take 1 tablet by 12 tablet 0 03/16/2018 Active tablet mouth every 6 (six) hours as needed for Nausea and Vomiting (N/V). cetirizine (ZYRTEC) 10 Take 1 tablet by 10 tablet 0 05/26/2019 Active mg tabletIndications: mouth daily. Allergic rhinitis, unspecified seasonality, unspecified trigger fluticasone propionate Use 1 [place] in 16 g 0 05/26/2019 Active (FLONASE [...] as of this encounter (statuses as of 05/24/2020) Active Problems Problem Noted Date Threatened miscarriage in early 04/05/2020 Subchorionic hematoma in first trimester, single or un specified fetus 04/05/2020 Obesity (BMI 30-39.9) 03/23/2020 Allergic rhinitis, unspecified seasonality, unspecifie d trigger 05/26/2019 Need for influenza vaccination 05/26/2019 Estimated Date of Delivery Comments Yes 11/19/2020 Based on last menstr ual period of 02/13/2020 (Exact Date) documented as of this encounter (statuses as of 05/24/2020) Resolved Problems Problem Noted Date Resolved Date Visit for annual health examination 05/26/201903/09 Diarrhea, unspecified type 05/26/2019 03/23/2020 Non-recurrent acute suppurative otitis media of right ear 03/23/2020 without spontaneous rupture of tympanic membrane Acute otitis externa of right ear, unspecified type 05/08/20 19 03/23/2020 Right ear pain 05/08/2019 03/23/2020 Left knee pain 05/07/2015 02/15/2016 documented as of this encounter (statuses as of 05/24/2020) Immunizations Name Administration Dates Next Due DTAP [...] been in contact with No / Unsure 05/24/2020 8:17 AM ICT SYSTEMS TEST ENGINEER someone who was confirmed or suspected to have Coronavirus / COVID-19? documented as of this encounter Last Filed Vital Signs Not on filedocumented in this encounter Nursing Notes Fernanda Polanco - 05/24/2020 8:00 AM CST Venipuncture collection performed by clean technique on the both anticubitus. Total of 4 attempts were made. Slight pressure and a bandage/dressing were applied to the site(s). The patient experienced no complications. The following specimens were processed according to instructions and sent to [facility] laboratories per lab order on 05/24/20: LT BLUE SST 1 RED LAV PPT DK GREEN (LiHep) DK GREEN (SodH) BALLARD 3 DK BLUE (K2) DK BLUE (S) ACD Blood Culture NIPT/NTD documented in this encounter Plan of Treatment Date Type Specialty Care Team Description 06/08/2020 Routine Obstetrics & Joan Crow, Visit Gynecology [facility] [address] [place] [phone] Health Maintenance Due Date Last Done Comments [...] Name Priority Date/Time Associated Diagnosis Comme nts 3 HR GLUCOSE Routine 05/24/2020 11:23 AM Abnormal maternal Res ults for this TOLERANCE TEST ICT SYSTEMS TEST ENGINEER glucose tolerance, procedu re are in antepartum the results section. 2 HR GLUCOSE Routine 05/24/2020 10:22 AM Abnormal maternal Res ults for this TOLERANCE TEST ICT SYSTEMS TEST ENGINEER glucose tolerance, procedu re are in antepartum the results section. 1 HR GLUCOSE Routine 05/24/2020 9:23 AM Abnormal maternal Res ults for this TOLERANCE TEST ICT SYSTEMS TEST ENGINEER glucose tolerance, procedu re are in antepartum the results section. GLUCOSE FASTING Routine 05/24/2020 8:21 AM Abnormal maternal Results for this ICT SYSTEMS TEST ENGINEER glucose tolerance, procedure are in antepartum the results section. GLUCOSE FASTING Routine 05/24/2020 8:21 AM Abnormal maternal Results for this ICT SYSTEMS TEST ENGINEER glucose tolerance, procedure are in antepartum the results section. documented in this encounter Results 3 HR GLUCOSE TOLERANCE TEST (05/24/2020 11:23 AM ICT SYSTEMS TEST ENGINEER) Pathologist Sig nature GLUC 3 HR 100 70 - 110 mg/dL [facility] Specimen Blood Performing Organization Address City/[facility]/Zipcode Phone Number [facility] CLIA: [id number] [place] [address] 2 HR GLUCOSE TOLERANCE TEST (05/24/2020 10:22 AM ICT SYSTEMS TEST ENGINEER) Pathologist Sig nature GLUC 2 HR 129 (H) 70 - 120 mg/dL [facility] Specimen Blood Performing Organization Address [facility] Phone Number [facility] CLIA: [id number] [place] [address] 1 HR GLUCOSE TOLERANCE TEST (05/24/2020 9:23 AM ICT SYSTEMS TEST ENGINEER) Pathologist Sig nature GLUC 1 HR 177 (H) 120 - 170 mg/dL [facility] Specimen Blood Performing Organization Address [facility] Phone Number [facility] CLIA: [id number] [place] [address] GLUCOSE FASTING (05/24/2020 8:21 AM ICT SYSTEMS TEST ENGINEER) Pathologist Sig nature GLU FASTNG 99 70 - 110 mg/dL [facility] Specimen Blood Performing Organization Address [facility] Phone Number [facility] CLIA: [id number] [place] [address] documented in this encounter Visit Diagnoses Diagnosis Abnormal maternal glucose tolerance, ant epartum documented in this encounter Insurance Payer Benefit Plan / Subscriber ID Effective Phone Address T ype Group Dates [facility] [id number] 2019-Pres [phone] O BOX PPO/POS - OUT OF STATE ent [id number] [place] [address] [employer] [id number] 2020-Pre [address]OX [employer] HEALTH CHOICE HEALTH CHOICE sent [id number] - MANAGED MEDICAID [place], [place] MEDICAID [phone] documented as of this encounter
--- OUTSIDE RECORDS SUMMARY | 2020-06-02 15:57 | XMS REPORT | Summary of Care ---
:1995 Author Organization [facility] [employer] Address [address] [place] [address] Care Team Providers Name Role Phone MD Bello Primary Care Provider Reason for Visit Reason Comments Vaginitis DYSURIA Encounter Details Date Type Department Care Team Description 05/18/2020 Routine [facility] Women's [place] Joan, Vaginal discharge (Primary Dx); Visit Healthcare- PA-C Dysuria; [address] High-risk in secon d trimester; [address] [place] [address] Vaginal irritation; Drive, [address] 13 [place] [phone] Allergies Active Allergy Reactions Severity Noted Date [...] seasonality, unspecified trigger fluticasone propionate Use 1 [place] in 16 g 0 05/26/2019 Active (FLONASE [...] with No / Unsure 05/18/2020 8:51 AM NETWORK INTERNSHIP someone who was confirmed or suspected to have Coronavirus / COVID-19? documented as of this encounter Last Filed Vital Signs Vital Sign Reading Time Taken Comments Blood Pressure 126/88 05/18/2020 9:10 AM NETWORK INTERNSHIP Pulse 85 05/18/2020 9:10 AM NETWORK INTERNSHIP Temperature 37.1 C (98.7 F) 05/18/2020 9:10 AM NETWORK INTERNSHIP Respiratory Rate 18 05/18/2020 9:10 AM NETWORK INTERNSHIP Oxygen Saturation - - Inhaled Oxygen Concentration - - Weight 88 kg (194 lb) 05/18/2020 9:10 AM NETWORK INTERNSHIP Height 165.1 cm (5' 5") 05/18/2020 9:10 AM NETWORK INTERNSHIP Body Mass Index 32.28 05/18/2020 9:10 AM NETWORK INTERNSHIP documented in this encounter Progress Notes Joan Crow PA-C - 05/18/2020 4:00 PM CST Fernanda Davis is a 24 year old female presented for vaginal discharge. Vaginal discharge started last month. Vaginal discharge appears thin/white. no vaginal itching. + vaginal pain. no vaginal odor. not associated with menstrual cycle. not associated with intercourse. no vaginal douching. + history of prior infection: BV. + cotton underwear. Past Medical History: Diagnosis Date Seasonal allergies Past Surgical History: Procedure Laterality Date JOINT SURGERY Lt ACL & Menis. repair. 08/2014 TOOTH EXTRACTION Allergies Allergen Reactions Pcn [Penicillins] Rash Current Outpatient Medications on File Prior to Visit Medication Sig Dispense Refill metoclopramide HCl 10 mg tablet Take 1 tablet by mouth every 6 (six) hours as needed for Nausea and Vomiting (N/V) (alternate with unisom/vitamin B6). 30 tablet 1 doxylamine-pyridoxine, vit B6, (DICLEGIS) 10-10 mg per tablet Take 1 tablet by mouth SEE-INSTRUCTIONS. 120 tablet 3 ketoconazole 2 % cream Apply to area(s) daily. 15 g 1 25/iron fum/folic/dha (-1 ORAL) Take by mouth. triamcinolone acetonide 0.1 % cream Apply to area(s) 2 (two) times daily. 15 g 1 cetirizine (ZYRTEC) 10 mg tablet Take 1 tablet by mouth daily. 10 tablet 0 fluticasone propionate (FLONASE ALLERGY RELIEF) 50 mcg/actuation nasal spray Use 1 [place] in eachnostril daily. 16 g 0 proMETHazine 25 mg tablet Take 1 tablet by mouth every 6 (six) hours as needed for Nausea and Vomiting (N/V). 12 tablet 0 No current facility-administered medications on file prior to visit. Social History Socioeconomic History Marital status: Spouse name: Not on file Number of [...] file Gets together: Not on file Attends advent service: Not on file Active member of [...] at home No pets No smoke exposure Family History Problem Relation Age of Onset Stroke Paternal Grandfather 42 No Significant Medical Problems Mother Diabetes Father High cholesterol Father Hypertension Father No Significant Medical Problems Maternal Grandmother No Significant Medical Problems Maternal Grandfather Diabetes Paternal Grandmother Allergies NoFHx Asthma NoFHx Heart NoFHx ROS: Denies chest pain, SOB, fever/chill, abdominal pain, +vaginal bleeding/spotting, +dysuria O+/ IAT neg BP: (126)/(88) Temp: [37.1 C (98.7 F)] Temp source: Oral (05/18 910) Pulse: [85] Resp: [18] SpO2: -- Height: [5' 5" (165.1 cm)] Weight: [194 lb (88 kg)] BMI (calculated): [32.28] NAD RRR Breathing unlabored External genitalia: + erythema. no lesions. Speculum exam: + vaginal discharge (white). no odor BME: no uterine tenderness, no CMT, no adnexal tenderness Cervix closed. SEE OB SUMMARY Feminine hygiene reviewed. Advise patient to rinse vagina with warm water after sexual intercourse and menses. May try probiotic yogurt. Follow-up PRN if symptoms do not resolved, improved, or worsened Joan Crow PA-C 05/18/2020 10:17 AM ORK INTERNSHIP documented in this encounter Miscellaneous Notes OB Summary Note - Joan Crow PA-C - 05/18/2020 4:00 PM CSTAge: 24 year old GA: 13w4d C/o vaginal discharge, minor pelvic cramps. Reports pink when wiping. Patient denies any intercoursex 2 months. Patient was tested and treated for BV last OV. Patient completed metrogel and metronidazole oral without relief. Patient also reports having vaginal pain. Patient denies any new creams, soaps, detergents. Washing instructions /hygiene discussed. UA /UC ordered MDL one swab collected. Follow-up pn visit as scheduled. [employer] documented in this encounter Plan of Treatment Date Type Specialty Care Team Description 05/19/2020 Steam Tender Visit Phlebotomy 2, Adc Lab 06/08/2020 Routine Visit Obstetrics & Joan Crow, Gynecology [facility] [address] [place] [phone] Name Type Priority Associated Diagnoses Order S chedule URINE CULTURE LAB Routine Dysuria Expected: 05/09, Expires: 05/18/2021 Health Maintenance Due Date Last Done Comments [...] Diagnosis Comme nts POCT URINALYSIS W/O Routine 05/18/2020 Dysuria Results for this SPECIFIC GRAVITY procedure a re in the results section . documented in this encounter Results POCT URINALYSIS W/O SPECIFIC GRAVITY (05/18/2020) Pathologist Sig nature POCT PH U 7 5 - 8 mg/dl POCT U LEUK EST 2+ Negative - Negative POCT U NIT neg Negative - Negative POCT U PROT neg Negative - Negative POCT U GLU neg Negative - Negative POCT U KETONE neg Negative - Negative POCT U BLD trace Negative - Negative Specimen Urine - URINE, CLEAN CATCH documented in this encounter Visit Diagnoses Diagnosis Vaginal discharge - Primary Leukorrhea, not specified as infective Dysuria High-risk in second trimester Vaginal irritation Unspecified noninflammatory disorder of vagina 13 weeks gestation of state, incidental documented in this encounter Insurance Payer Benefit Plan / Subscriber ID Effective Phone Address T ype Group Dates [facility] [id number] 2019-Pres [phone] P O BOX PPO/POS - OUT OF STATE ent [phone] [id number] [place] [address] [facility] [id number] 2020-Pre P[address]O. BOX Medica id [employer] HEALTH CHOICE sent [id number] - MANAGED MEDICAID [place], [place] MEDICAID [phone] documented as of this encounter
--- OUTSIDE RECORDS SUMMARY | 2020-06-02 15:57 | XMS REPORT | Summary of Care ---
:1995 Author Organization [facility] [employer] Address [address] [place] [address] Care Team Providers Name Role Phone MD Bello Primary Care Provider Reason for Visit Reason Comments Assessment discharge, pain Encounter Details Date Type Department Care Team Description 05/17/2020 Telephone [facility] Women's Joan Crow Asse ssment (discharge, Healthcare- [place] PA-C pain) [address], [address] [place] [phone] [place], [place] [phone] Allergies Active Allergy Reactions Severity Noted Date Comments Penicillins Rash 05/07/2015 documented as of this encounter (statuses as of 05/17/2020) Medications Medication Sig Dispensed Refills Start Date End Date Status proMETHazine 25 mg Take 1 tablet by 12 tablet 0 03/16/2018 Active tablet mouth every 6 (six) hours as needed for Nausea and Vomiting (N/V). cetirizine (ZYRTEC) 10 Take 1 tablet by 10 tablet 0 05/26/2019 Active mg tabletIndications: mouth daily. Allergic rhinitis, unspecified seasonality, unspecified trigger fluticasone propionate Use 1 [place] in 16 g 0 05/26/2019 Active (FLONASE [...] as of this encounter (statuses as of 05/17/2020) Active Problems Problem Noted Date Threatened miscarriage in early 04/05/2020 Subchorionic hematoma in first trimester, single or un specified fetus 04/05/2020 Obesity (BMI 30-39.9) 03/23/2020 Allergic rhinitis, unspecified seasonality, unspecifie d trigger 05/26/2019 Need for influenza vaccination 05/26/2019 Estimated Date of Delivery Comments Yes 11/19/2020 Based on last menstr ual period of 02/13/2020 (Exact Date) documented as of this encounter (statuses as of 05/17/2020) Resolved Problems Problem Noted Date Resolved Date Visit for annual health examination 05/26/201903/09 Diarrhea, unspecified type 05/26/2019 03/23/2020 Non-recurrent acute suppurative otitis media of right ear 03/23/2020 without spontaneous rupture of tympanic membrane Acute otitis externa of right ear, unspecified type 05/08/20 19 03/23/2020 Right ear pain 05/08/2019 03/23/2020 Left knee pain 05/07/2015 02/15/2016 documented as of this encounter (statuses as of 05/17/2020) Immunizations Name Administration Dates Next Due DTAP [...] with No / Unsure 05/10/2020 8:32 AM CHANNEL INSTALLER someone who was confirmed or suspected to have Coronavirus / COVID-19? documented as of this encounter Last Filed Vital Signs Not on filedocumented in this encounter Miscellaneous Notes Telephone Encounter - Ce Soto RN - 05/17/2020 12:10 PM CSTRN spoke with patient, name and verified. Patient states that symptoms started on Sunday. Patient reports vaginal spotting when wiping, vaginal discharge and pain, and dysuria. Patient reports last intercourse was 2 months ago. RN recommended patient be seen in the clinic to further evaluate symptoms. ER precautions given for worsening bleeding or abdominal pain. Patient verbalized understanding and agrees to plan of care. Call transferred to [facility] for appointment. Ce Soto RN 05/17/2020 12:14 PM NEL INSTALLER Telephone Encounter - Maribel Peña - 05/17/2020 12:06 PM CSTPer patient she is 12 weeks and having some yellowish discharge and pain. Call transferred to nurse. NEL INSTALLER documented in this encounter Plan of Treatment Date Type Specialty Care Team Description 05/18/2020 Routine Visit Obstetrics & Joan Crow, Gynecology [facility] [address] [facility] [address] [place] [phone] 05/19/2020 Hvac Maintenance Technician Visit Phlebotomy 2, Adc Lab 06/08/2020 Routine Visit Obstetrics & Joan Crow Gynecology [facility] [address] [facility] [address] [place] [phone] Health Maintenance Due Date Last Done Comments [...] Effective Phone Address T ype Group Dates [facility] [id number] 2019-Pres [phone] P O BOX PPO/POS - OUT OF STATE ent [phone] [place] [address] [facility] [id number] 2020-Pre P[address]O. BOX Medica id [employer] HEALTH CHOICE sent [id number] - MANAGED MEDICAID [place], [place] MED[place]ID [phone] documented as of this encounter
--- OUTSIDE RECORDS SUMMARY | 2020-06-02 15:58 | XMS REPORT | Summary of Care ---
:1997 Author Organization [facility] Address [address] [place] [address] Care Team Providers Name Role Phone MD Bello Primary Care Provider Reason for Visit Reason Comments TEST RESULTS [facility] Low Risk Male /Sissy Burton Encounter Details Date Type Department Care Team Description 05/24/2020 Telephone [facility] Women's Annetta Acevedo MD TEST RESULTS ([facility]- [address] Low Risk Male /[address], [address] [phone] Allergies Active Allergy Reactions Severity Noted Date [...] seasonality, unspecified trigger fluticasone propionate Use 1 [place] in 16 g 0 05/26/2019 Active (FLONASE [...] with No / Unsure 05/24/2020 8:17 AM RESCUE BOAT OPERATOR someone who was confirmed or suspected to have Coronavirus / COVID-19? documented as of this encounter Last Filed Vital Signs Not on filedocumented in this encounter Miscellaneous Notes Telephone Encounter - Efraín Bajwa - 05/24/2020 1:25 PM CSTPanorama Low Risk Sex Male Horizon Declined Placed in provider folder for signature and review. Patient advised and aware. Efraín Bajwa 05/24/2020 1:28 PM documented in this encounter Plan of Treatment Date Type Specialty Care Team Description 06/08/2020 Routine Obstetrics & Joan Crow, Visit Gynecology [facility] [address] [place] [phone] Health Maintenance Due Date Last Done [...] Effective Phone Address T ype Group Dates [facility] [id number] 2019-Pres [phone] P O BOX PPO/POS - OUT OF STATE ent [phone] [place] [address] [employer] [id number] 2020-Pre [address] BOX Medica id HEALTH [employer] HEALTH CHOICE sent [id number] - MANAGED MEDICAID [place], [place] [phone] documented as of this encounter
--- OUTSIDE RECORDS SUMMARY | 2020-06-02 15:58 | XMS REPORT | Summary of Care ---
:1995 Author Organization [facility] - [facility] Address [address] [place] [id number] Care Team Providers Name Role Phone MD Bello Primary Care Provider Reason for Visit Reason Comments TEST RESULTS Encounter Details Date Type Department Care Team Description 06/02/2020 Telephone [facility] Women's Ely Crow PA-C TEST RESULTS [facility] [place] 146 [facility] 146 [facility] [address] [place] [address] [place] [address] [phone] Allergies Active Allergy Reactions Severity Noted Date Comments Penicillins Rash 05/07/2015 documented as of this encounter (statuses as of 06/02/2020) Medications Medication Sig Dispensed Refills Start Date End Date Status proMETHazine 25 mg Take 1 tablet 12 tablet 0 03/16/2018 Active tablet by mouth every 6 (six) hours as needed for Nausea and Vomiting (N/V). cetirizine (ZYRTEC) 10 Take 1 tablet 10 tablet 0 05/26/2019 Active mg tabletIndications: by mouth daily. Allergic rhinitis, unspecified seasonality, unspecified trigger fluticasone propionate Use 1 [place] in 16 g 0 05/26/2019 Active (FLONASE ALLERGY each nostril RELIEF) 50 daily. mcg/actuation nasal sprayIndications: Allergic rhinitis, unspecified seasonality, unspecified trigger 25/iron Take by mouth. 0 Active fum/folic/dha (-1 ORAL) doxylamine-pyridoxine, Take 1 tablet 120 tablet 3 03/23/2020 Active vit B6, (DICLEGIS) by mouth 10-10 mg per SEE-INSTRUCTION tabletIndications: S. Positive test, Vomiting or nausea of ketoconazole 2 % Apply to 15 g 1 03/23/2020 Ac tive creamIndications: area(s) daily. Candidiasis of skin and nails triamcinolone Apply to 15 g 1 03/23/2020 Activ e acetonide 0.1 % area(s) 2 (two) creamIndications: times daily. Candidiasis of skin and nails metoclopramide HCl 10 Take 1 tablet 30 tablet 1 04/02/2020 Active mg tablet by mouth every 6 (six) hours as needed for Nausea and Vomiting (N/V) (alternate with unisom/vitamin B6). metroNIDAZOLE 500 mg Take 1 tablet 14 tablet 0 06/01/2020 Active tabletIndications: BV by mouth every (bacterial vaginosis) 12 (twelve) hours. fluconazole 200 mg Take 1 tablet 1 tablet 0 06/01/20202019 Active tabletIndications: by mouth daily Vaginal donavon for 1 day. documented as of this encounter (statuses as of 06/02/2020) Active Problems Problem Noted Date Threatened miscarriage in early 04/05/2020 Subchorionic hematoma in first trimester, single or un specified fetus 04/05/2020 Obesity (BMI 30-39.9) 03/23/2020 Allergic rhinitis, unspecified seasonality, unspecifie d trigger 05/26/2019 Need for influenza vaccination 05/26/2019 Estimated Date of Delivery Comments Yes 11/19/2020 Based on last menstr ual period of 02/13/2020 (Exact Date) documented as of this encounter (statuses as of 06/02/2020) Resolved Problems Problem Noted Date Resolved Date Visit for annual health examination 05/26/201903/09 Diarrhea, unspecified type 05/26/2019 03/23/2020 Non-recurrent acute suppurative otitis media of right ear 03/23/2020 without spontaneous rupture of tympanic membrane Acute otitis externa of right ear, unspecified type 05/08/20 19 03/23/2020 Right ear pain 05/08/2019 03/23/2020 Left knee pain 05/07/2015 02/15/2016 documented as of this encounter (statuses as of 06/02/2020) Immunizations Name Administration Dates Next Due DTAP [...] with No / Unsure 05/24/2020 8:17 AM JAWBONE PULLER someone who was confirmed or suspected to have Coronavirus / COVID-19? documented as of this encounter Last Filed Vital Signs Not on filedocumented in this encounter Miscellaneous Notes Telephone Encounter - Efraín Bajwa - 06/02/2020 8:50 AM CSTPatient advised and aware of her MDL One Swab Results for BV and Yeast. Patient verbalized her understanding Environmental precautions reviewed with patient. documented in this encounter Plan of Treatment Date Type Specialty Care Team Description 06/08/2020 Routine Obstetrics & Joan Crow, Visit Gynecology [facility] [address] [address] Health Maintenance Due Date Last Done Comments Depression Screening 09/23/2009 MENINGOCOCCAL B VACCINES (2 12/28/2015 11/30/2015 of 2 - Risk Bexsero 2-dose series) HPV VACCINES (2 - 3-dose 03/14/2016 02/15/2016 series) DTaP,Tdap,and Td Vaccines (7 02/22/2021 02/22/2011, 002, [...] Effective Phone Address T ype Group Dates [facility] [id number] 2019-Pres [phone] P O BOX PPO/POS - OUT OF STATE ent [id number] [place] [address] [facility] [id number] 2020-Pre P[address]O. BOX [employer] HEALTH CHOICE HEALTH CHOICE sent [id number] - MANAGED MEDICAID [place], [place] [phone] documented as of this encounter
--- OUTSIDE RECORDS SUMMARY | 2020-06-02 15:58 | XMS REPORT | Summary of Care ---
:1995 Author Organization [facility] - [facility] Address [address] [place] [address] Care Team Providers Name Role Phone MD Bello Primary Care Provider Reason for Visit Reason Comments TEST RESULTS Called Pt regarding MDL One Swab / Meds Encounter Details Date Type Department Care Team Description 06/02/2020 Telephone [facility] Women's Vaibhavrajinder Joan, TEST RESULTS (Called [facility] KOKO Pt regarding MDL One 146 [facility] 146 [facility] / Meds) 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 documented as of this encounter Last Filed Vital Signs Not on filedocumented in this encounter Miscellaneous Notes Telephone Encounter - Efraín Bajaw - 06/02/2020 8:14 AM CSTCalled patient to review MDL One Swab results and medications called in to pharmacy and how to take the meds. No Answer Left message for patient to call the office. Efraín Bajwa 06/02/2020 8:16 AM documented in this encounter Plan of Treatment Date Type Specialty Care Team Description 06/08/2020 Routine Obstetrics & Joan Crow, Visit Gynecology [facility] [address] [place] [address] 208 [place] [address] Health Maintenance Due Date Last [...] Effective Phone Address T ype Group Dates [facility] [id number] 2019-Pres [phone] P O BOX PPO/POS - OUT OF STATE ent [phone] [id number] [place] [address] [facility] [id number] 2020-Pre P[address]O. BOX Medica id HEALTH CHOICE HEALTH CHOICE sent [id number] - MANAGED MEDICAID [place] [phone] documented as of this encounter
--- OUTSIDE RECORDS SUMMARY | 2020-06-02 15:58 | XMS REPORT | Summary of Care ---
:1995 Author Organization [facility] - Health Address [address] [place] [address] Care Team Providers Name Role Phone MD Bello Primary Care Provider Encounter Details Date Type Department Care Team Description 05/10/2020 Orders Only [facility] Doctor Unassigned, No [address] [facility] [place] [address] [place] [address] Allergies Active Allergy Reactions Severity Noted Date Comments Penicillins Rash 05/07/2015 documented as of this encounter (statuses as of 05/27/2020) Medications Medication Sig Dispensed Refills Start Date End Date Status proMETHazine 25 mg Take 1 tablet by 12 tablet 0 03/16/2018 Active tablet mouth every 6 (six) hours as needed for Nausea and Vomiting (N/V). cetirizine (ZYRTEC) 10 Take 1 tablet by 10 tablet 0 05/26/2019 Active mg tabletIndications: mouth daily. Allergic rhinitis, unspecified seasonality, unspecified trigger fluticasone propionate Use 1 [place] in 16 g 0 05/26/2019 Active (FLONASE [...] as of this encounter (statuses as of 05/27/2020) Active Problems Problem Noted Date Threatened miscarriage in early 04/05/2020 Subchorionic hematoma in first trimester, single or un specified fetus 04/05/2020 Obesity (BMI 30-39.9) 03/23/2020 Allergic rhinitis, unspecified seasonality, unspecifie d trigger 05/26/2019 Need for influenza vaccination 05/26/2019 Estimated Date of Delivery Comments Yes 11/19/2020 Based on last menstr ual period of 02/13/2020 (Exact Date) documented as of this encounter (statuses as of 05/27/2020) Resolved Problems Problem Noted Date Resolved Date Visit for annual health examination 05/26/201903/09 Diarrhea, unspecified type 05/26/2019 03/23/2020 Non-recurrent acute suppurative otitis media of right ear 03/23/2020 without spontaneous rupture of tympanic membrane Acute otitis externa of right ear, unspecified type 05/08/2003/23/2020 Right ear pain 05/08/2019 03/23/2020 Left knee pain 05/07/2015 02/15/2016 documented as of this encounter (statuses as of 05/27/2020) Immunizations Name Administration Dates Next Due DTAP [...] with No / Unsure 05/24/2020 8:17 AM PELLETIZER someone who was confirmed or suspected to have Coronavirus / COVID-19? documented as of this encounter Last Filed Vital Signs Not on filedocumented in this encounter Plan of Treatment Date Type Specialty Care Team Description 06/08/2020 Routine Obstetrics & Joan Crow, Visit Gynecology [facility] [address] [address] Health Maintenance Due Date Last [...] Name Priority Date/Time Associated Diagnosis Comme nts SCANNED LAB RESULTS Routine 05/10/2020 12:01 AM PELLETIZER documented in this encounter Results SCANNED LAB RESULTS (05/10/2020 12:01 AM PELLETIZER) Specimen Performing Organization Address City/State/Zipcode Phone Number HIM documented in this encounter Insurance Payer Benefit Plan / Subscriber ID Effective Phone Address T ype Group Dates [facility] [id number] 2019-Pres [phone] P O BOX PPO/POS - OUT OF STATE ent [id number] [place] [address] [employer] [id number] 2020-Pre P[address]O. BOX Medica id [facility] sent [id number] - MANAGED MEDICAID [place], [place] [phone] documented as of this encounter"
--- OUTSIDE RECORDS SUMMARY | 2020-06-02 15:58 | XMS REPORT | Summary of Care ---
:[address] [facility] - [facility] Address [address] [place] [address] Care Team Providers Name Role Phone MD Bello Primary Care Provider Reason for Visit Reason Comments TEST RESULTS BV POSITIVE; AV negative; Ca ndida POSITIVE Encounter Details Date Type Department Care Team Description 06/01/2020 Telephone [facility] Women's Joan Crow, TEST RESULTS ([facility] [place] PA-C POSITIVE; AV negative; 146 [facility] 146 [facility] [place] POSITIVE) [address], [address] [place] [address] [place], [place] [phone] [address] Allergies Active Allergy Reactions Severity Noted Date Comments Penicillins Rash 05/07/2015 documented as of this encounter (statuses as of 06/01/2020) Medications Medication Sig Dispensed Refills Start Date End Date Status proMETHazine 25 mg Take 1 tablet 12 tablet 0 03/16/2018 Active tablet by mouth every 6 (six) hours as needed for Nausea and Vomiting (N/V). cetirizine (ZYRTEC) 10 Take 1 tablet 10 tablet 0 05/26/2019 Active mg tabletIndications: by mouth daily. Allergic rhinitis, unspecified seasonality, unspecified trigger fluticasone propionate Use 1 [place] in 16 g 0 05/26/2019 Active (FLONASE [...] as of this encounter (statuses as of 06/01/2020) Active Problems Problem Noted Date Threatened miscarriage in early 04/05/2020 Subchorionic hematoma in first trimester, single or un specified fetus 04/05/2020 Obesity (BMI 30-39.9) 03/23/2020 Allergic rhinitis, unspecified seasonality, unspecifie d trigger 05/26/2019 Need for influenza vaccination 05/26/2019 Estimated Date of Delivery Comments Yes 11/19/2020 Based on last menstr ual period of 02/13/2020 (Exact Date) documented as of this encounter (statuses as of 06/01/2020) Resolved Problems Problem Noted Date Resolved Date Visit for annual health examination 05/26/201903/09 Diarrhea, unspecified type 05/26/2019 03/23/2020 Non-recurrent acute suppurative otitis media of right ear 03/23/2020 without spontaneous rupture of tympanic membrane Acute otitis externa of right ear, unspecified type 05/08/20 19 03/23/2020 Right ear pain 05/08/2019 03/23/2020 Left knee pain 05/07/2015 02/15/2016 documented as of this encounter (statuses as of 06/01/2020) Immunizations Name Administration Dates Next Due DTAP [...] with No / Unsure 05/24/2020 8:17 AM 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 documented as of this encounter Last Filed Vital Signs Not on filedocumented in this encounter Miscellaneous Notes Telephone Encounter - Joan Crow PA-C - 06/01/2020 1:18 PM CSTRx sent for flagyl and diflucan. Please inform patient. Thank you, Joan Crow PA-C O PRODUCTION ENGINEER Telephone Encounter - Efraín Bajwa - 06/01/2020 1:06 PM CSTMDL One Swab Bacterial Vaginosis Positive for: Gardnerella / Atopobium Vaginae / BVAB2 and Megasphaera Seecies Type 1 positive Aerobic Vaginitis Negative Panel [place] Albicans Positive Placed on provider desk for signature and review and Rx as indicated. Efraín Bajwa 06/01/2020 1:10 PM documented in this encounter Plan of Treatment Date Type Specialty Care Team Description 06/08/2020 Routine Obstetrics & Joan Crow, Visit Gynecology [facility] [address] [place] [address] Health Maintenance Due Date Last Done [...] Address T ype Group Dates [employer] [id number] 2019-Pres [phone] P O BOX PPO/POS - OUT OF STATE ent [id number] [place] [address] [facility] [id number] 2020-Pre [address]O. BOX Medica id HEALTH CHOICE HEALTH CHOICE sent [id number] - MANAGED MEDICAID [place], [place]ID [phone] documented as of this encounter
--- OUTSIDE RECORDS SUMMARY | 2020-06-02 15:58 | XMS REPORT | Summary of Care ---
:1995 Author Organization [facility] - [facility] Address [address] [place] [address] Care Team Providers Name Role Phone MD Bello Primary Care Provider Reason for Visit Reason Comments New Medication Encounter Details Date Type Department Care Team Description 06/01/2020 Case Management [facility] Women's Joan Crow N ew [facility] [address] [place] [address], [address] [place] [address] [facility] 208 [place] [address] [phone] Allergies Active Allergy Reactions Severity Noted Date [...] seasonality, unspecified trigger fluticasone propionate Use 1 [place] in 16 g 0 05/26/2019 Active (FLONASE [...] with No / Unsure 05/24/2020 8:17 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 documented as of this encounter Last Filed Vital Signs Not on filedocumented in this encounter Plan of Treatment Date Type Specialty Care Team Description 06/08/2020 Routine Obstetrics & Joan Crow, Visit Gynecology [facility] [address] [address] Health Maintenance Due Date Last [...] filedocumented in this encounter Visit Diagnoses Diagnosis Vaginal donavon - Primary Candidiasis of vulva and vagina BV (bacterial vaginosis) Vaginitis and vulvovaginitis, unspecifie d documented in this encounter Insurance Payer Benefit Plan / Subscriber ID Effective Phone Address T ype Group Dates [facility] [id number] 2019-Pres [phone] P O BOX PPO/POS - OUT OF STATE ent [id number] [place] [address] [employer] [id number] 2020-Pre [address]O. BOX Medica id HEALTH [employer] HEALTH CHOICE sent [id number] - MANAGED MEDICAID [place], [place] [phone] documented as of this encounter
[2020-06-02 16:38] LABS: Urine Blood TRACE (NEG); Urine Glucose NEGATIVE (NEG); Urine Protein NEGATIVE (NEG); Urine Specific Gravity 1.015 (1.005-1.030); Urine pH 5.5 (5.0-7.0)
[2020-06-02 17:00] LABS: Urine Bacteria <20 /HPF (<20); Urine RBC <5 /HPF (NONE SEEN)
--- NOTE | 2020-06-02 17:07 | EDPHYS ---
Physician Documentation [facility] Name: Fernanda Davis Age: 24 yrs Sex: Female : 1995 Arrival Date: 06/02/2020 Time: 15:55 Bed 15 Private MD: ED Physician Zena Love HPI: 06/02 16:36 This 24 yrs old Female presents to ER via Ambulatory with complaints of 14 wks kb Preg- Abd Pain. 16:36 Pt reports lower abd cramping that started this morning. States she has had an US for kb this and an IUP was confirmed. OB is Dr Acevedo at [facility]. 16:37 The patient presents to the emergency department with abdominal pain, of the suprapubic kb area, right lower quadrant and left lower quadrant, that started this morning, described as crampy. The estimated gestational age is 14 weeks. course: care: at a clinic, Leakage of Fluid: none appreciated, Ultrasound: the patient had an ultrasound, which was normal, Risk/complications: no obvious risks or complications are appreciated. Previous pregnancies: in previous pregnancies patient has had. Associated signs and symptoms: Pertinent positives: abdominal pain, Pertinent negatives: chest pain, diarrhea, dysuria, fever, frequency, nausea, ruptured membranes, seizure, shortness of breath, vaginal bleeding, vaginal discharge, vomiting. The patient has not experienced similar symptoms in the past. The patient has not recently seen a physician. 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 - Social history:: Smoking status: Patient denies any tobacco usage or history of. ROS: 16:38 Constitutional: Negative for fever, chills, and weight loss, Cardiovascular: Negative kb for chest pain, palpitations, and edema, Respiratory: Negative for shortness of breath, cough, wheezing, and pleuritic chest pain, Back: Negative for injury and pain, : Negative for injury, bleeding, discharge, and swelling, MS/Extremity: Negative for injury and deformity, Skin: Negative for injury, rash, and discoloration, Neuro: Negative for headache, weakness, numbness, tingling, and seizure. 16:38 Abdomen/GI: Positive for abdominal pain, Negative for nausea, vomiting, and diarrhea. Exam: 16:38 Constitutional: This is a well developed, well nourished patient who is awake, alert, kb and in no acute distress. Head/Face: Normocephalic, atraumatic. Chest/axilla: Normal chest wall appearance and motion. Nontender with no deformity. No lesions are appreciated. Cardiovascular: Regular rate and rhythm with a normal S1 and S2. No gallops, murmurs, or rubs. Normal PMI, no JVD. No pulse deficits. Respiratory: Lungs have equal breath sounds bilaterally, clear to auscultation and percussion. No rales, rhonchi or wheezes noted. No increased work of breathing, no retractions or nasal flaring. Back: No spinal tenderness. No costovertebral tenderness. Full range of motion. Skin: Warm, dry with normal turgor. Normal color with no rashes, no lesions, and no evidence of cellulitis. MS/ Extremity: Pulses equal, no cyanosis. Neurovascular intact. Full, normal range of motion. Neuro: Awake and alert, GCS 15, oriented to person, place, time, and situation. Cranial nerves II-XII grossly intact. Motor strength 5/5 in all extremities. Sensory grossly intact. Cerebellar exam normal. Normal gait. 16:38 Abdomen/GI: Inspection: abdomen appears normal, Bowel sounds: normal, in all quadrants, Palpation: soft, in all quadrants, mild abdominal tenderness, in the suprapubic area, right lower quadrant and left lower quadrant. Vital Signs: 15:59 BP 147 / 97; Pulse 82; Resp 16; Temp 99.3(TE); Pulse Ox 100% on R/A; Weight 83.01 kg; ss Height 5 ft. 5 in. (165.10 cm); Pain 6/10; 15:59 Body Mass Index 30.45 (83.01 kg, 165.10 cm) ss MDM: 16:11 Patient medically screened. kb 16:38 Data reviewed: vital signs, nurses notes. Data interpreted: Pulse oximetry: on room air kb is 100 %. Interpretation: normal. Counseling: I had a detailed discussion with the patient and/or guardian regarding: the historical points, exam findings, and any diagnostic results supporting the discharge/admit diagnosis, lab results, the need for outpatient follow up, an OB/Gyne specialist, to return to the emergency department if symptoms worsen or persist or if there are any questions or concerns that arise at home. 06/02 16:21 Order name: Urine Dipstick--Ancillary (enter results); Complete Time: 16:39 sp 06/02 16:21 Order name: Test Urine - POC; Complete Time: 16:39 sp 06/02 16:09 Order name: Urine Test (obtain specimen); Complete Time: 16:13 kb 06/02 16:09 Order name: Urine Dipstick-Ancillary (obtain specimen); Complete Time: 16:13 kb 06/02 16:39 Order name: Urine Microscopic Only kb 06/02 16:40 Order name: Urine Microscopic Only; Complete Time: 17:04 EDMS 06/02 16:23 Order name: FHT's; Complete Time: 16:36 kb Administered Medications: No medications were administered Disposition: 06/02/20 17:06 Discharged to Home. Impression: state, Abdominal and pelvic pain. - Condition is Stable. - Discharge Instructions: Second Trimester of , [id number]. - Medication Reconciliation Form, Thank You Letter, Antibiotic Education, Prescription Opioid Use form. - Follow up: Emergency Department; When: As needed; Reason: Worsening of condition. Follow up: Private Physician; When: 2 - 3 days; Reason: Recheck today's complaints, Continuance of care, Re-evaluation by your physician. Addendum: 06/04/2020 11:05 Co-signature as Attending Physician, Zena Love MD. m a2 Signatures: Dispatcher [employer] EDFL Rosalba Kilgore, SALES AND MANAGEMENT TRAINEE-C SALES AND MANAGEMENT TRAINEE-Beulah Rowell RN RN Zena Love MD MD ma2 Kori Murray RN RN ll1 Corrections: (The following items were deleted from the chart) 06/02 17:24 17:06 06/02/2020 17:06 Discharged to Home. Impression: state; Abdominal and ll1 pelvic pain. Condition is Stable. Forms are Medication Reconciliation Form, Thank You Letter, Antibiotic Education, Prescription Opioid Use. Follow up: Emergency Department; When: As needed; Reason: Worsening of condition. Follow up: Private Physician; When: 2 - 3 days; Reason: Recheck today's complaints, Continuance of care, Re-evaluation by your physician. kb
--- NOTE | 2020-06-02 17:07 | ER ---
Nurse's Notes [facility] Name: Fernanda Davis Age: 24 yrs Sex: Female : 1995 Arrival Date: 06/02/2020 Time: 15:55 Bed 15 Private MD: Diagnosis: state;Abdominal and pelvic pain Presentation: 06/02 15:59 Chief complaint: Patient states: lower abd cramping that began this morning. OB told ss patient that she has a vaginal and yeast infection and was given Flagyl and fluconazole for treatment. Denies vaginal bleeding. Coronavirus screen: Client denies travel out of the [place] in the last 14 days. Ebola Screen: Patient denies exposure to infectious person. Patient denies travel to an Ebola-affected area in the 21 days before illness onset. Initial Sepsis Screen: Does the patient meet any 2 criteria? No. Patient's initial sepsis screen is negative. Does the patient have a suspected source of infection? Yes: Other: vaginal infection. Risk Assessment: Do you want to hurt yourself or someone else? Patient reports no desire to harm self or others. Onset of symptoms was June 02, 2020. 15:59 Method Of Arrival: Ambulatory ss 15:59 Acuity: KYM 3 ss 16:02 Note Pt reports she is 14 weeks . 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 - Social history:: Smoking status: Patient denies any tobacco usage or history of. Screenin:38 Abuse screen: Denies threats or abuse. Nutritional screening: No deficits noted. ll1 Tuberculosis screening: No symptoms or risk factors identified. Fall Risk None identified. Total Ceja Fall Scale indicates No Risk (0-24 pts). Assessment: 16:30 General: Appears in no apparent distress. Behavior is calm, cooperative, appropriate ll1 for age. Pain: Denies pain. Neuro: No deficits noted. Cardiovascular: No deficits noted. Respiratory: No deficits noted. GI: Abdomen is flat, Bowel sounds present X 4 quads. Abd is soft and non tender X 4 quads. Reports lower abdominal pain. : No deficits noted. 17:20 Reassessment: Patient and/or family updated on plan of care and expected duration. Pain ll1 level reassessed. Vital Signs: 15:59 BP 147 / 97; Pulse 82; Resp 16; Temp 99.3(TE); Pulse Ox 100% on R/A; Weight 83.01 kg; ss Height 5 ft. 5 in. (165.10 cm); Pain 6/10; 15:59 Body Mass Index 30.45 (83.01 kg, 165.10 cm) ED Course: 15:55 Patient arrived in ED. ds1 15:55 Rosalba Kilgore FNP-C [facility]. kb 15:55 Zena Love MD is Attending Physician. kb 16:01 Triage completed. ss 16:02 Arm band placed on left wrist. ss 16:11 Kori Murray, RN is Primary Nurse. ll1 16:36 FHT 144, found in RLQ. ll1 16:38 Patient has correct armband on for positive identification. Bed in low position. Call ll1 light in reach. Side rails up X 1. 16:54 Urine Microscopic Only Sent. ll1 17:20 No provider procedures requiring assistance completed. Patient did not have IV access ll1 during this emergency room visit. Administered Medications: No medications were administered Outcome: 17:06 Discharge ordered by . kb 17:24 Patient left the ED. ll1 17:24 Discharged to home ambulatory. ll1 17:24 Condition: stable 17:24 Discharge instructions given to patient, Instructed on discharge instructions, follow up and referral plans. Demonstrated understanding of instructions, follow-up care. Signatures: Rosalba Kilgore FNP-C FNP-Cris Valenzuela ds1 Beulah Varela RN RN Kori Murray RN RN ll1
[2020-06-02 20:35] VITALS: BP 147/97; TEMP 99.3; O2SAT 100
== END 2020-06-02 17:24 | disposition home or self-care (01) ==
LOC: ER 15:51
DX: O26.891 Other specified pregnancy related conditions, first trimester (principal); Z3A.14 14 weeks gestation of pregnancy; Z88.0 Allergy status to penicillin
CPT/HCPCS: 81003; 81015; 81025; 99283